=== PATIENT | female | born 1970 | race Caucasian/White ===

== ENCOUNTER 2017-02-21 03:27 | Emergency (ER) | payer MEDICAID ==
[~2017-02-21] VITALS: Ht 152.4 cm; Wt 116.1 kg
[~2017-02-21 03:27] MED LIST: ACETAMINOPHEN500 M3 PO; ANTACID PO; AUGMENTIN 875-1 EACH PO; BACTRIM DS 8001 TA1 PO; CEFTIN500 MG PO; CELEXA40 M1 PO; CITALOPRAM HYDR20 MG PO; CLARITIN 10MG T10 MG PO; DIVALPROEX SOD500 M2 PO; DUONEB 3 MG/3 ML3 ML IH; ESTRACE 2MG. TAB2 MG PO; HYDROCHLOROTH12.5 M1 PO; HYDROXYZINE 25M25 MG PO; IBUPROFEN600 MG PO; IMODIUM 2MG. CAP2 MG PO; KALETRA1 TAB PO; KLOR-CON M2020 MEQ PO; LAMICTAL100 MG PO; LAMIVUDINE300 MG PO; MECLIZINE25 MG PO; MILK OF MA400 MG/52 PO; MIRALAX17 GM/PACK PO; NORCO 325 MG-51 TAB PO; PREDNICOT20 MG PO; PRILOSEC OTC20 MG PO; PROMETHAZINE25 M1; RISPERDAL 0.50.5 MG NG; RISPERIDONE0.25 MG PO; ROBAFEN DM473 ML PO; ROBITUSSIN DM 105 ML PO; SIMVASTATIN20 MG PO; SPIRIVA18 MCG IH; STERAPRED DS10 MG PO; SYMBICORT1 AE1 IH; TIZANIDINE HCL 44 MG PO; TRAZODONE150 MG PO; TRIAMCINOLON 0.15 GM TP; TYLENOL325 MG PO; VENTOLIN H0.09 MG/AC IH; VITAMIN D50000 I1 PO; ZIDOVUDINE300 MG PO; ZITHROMAX Z PA250 MG PO; ZUN SPOT1% TP; [UNRECOGNIZED DRUG - OTHER] IM; [UNRECOGNIZED DRUG - OTHER] PO
[2017-02-21 03:50] LABS: HEMOGLOBIN 13.9 g/dL (12.2-16.2); LYMPH # 2.9 K/mm3 (0.7-4.5); LYMPH % 22.2 % (10-50.0)
[2017-02-21 03:53] LABS: URINE BILIRUBIN - DIPSTICK NEGATIVE (NEG); URINE BLOOD NEGATIVE (NEG)
--- NOTE | 2017-02-21 05:20 | Emergency Room Report ---
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 N Clinical Suspician of Infection? Y Mental Status: 1 - Regular (Normal Baseline) Sepsis Risk:Possible Sepsis Risk Have you (or family members/close friends) recently traveled outside the [place]? N If Yes, where/when: Have you had exposure to infectious disease within the past month? N TB? Other? Specify: Source patient, RN notes reviewed, EMS, correction records, old records Exam Limitations no limitations Comment acute onset of rt flank pain with no trauma or fever and no rash this am Cardiac Chest Pain Chest pain indicative of cardiac No Timing/Duration this evening Severity moderate ALLERGIES Coded Allergies: BANANAS (FOOD) (From BANANAS (FOOD/DRUG)) (Mild, 10/18/15) CHOCOLATE (FOOD) (From CHOCOLATE (FOOD/DRUG)) (Mild, UNKNOWN 10/18/15) banana (From BANANAS (FOOD/DRUG)) (Mild, 10/18/15) chocolate flavor (From CHOCOLATE (FOOD/DRUG)) (Mild, UNKNOWN 10/18/15) Home Medications Active Scripts Zidovudine 300 MG PO BID #30 TAB Prov: 07/12/16 Lamivudine 300 MG PO DAILY #15 TAB Prov: 07/12/16 Lopinavir/Ritonavir (Kaletra 200-50 MG Tablet) 4 TAB PO DAILY #60 TAB Prov: 07/12/16 Reported Medications Risperidone (Risperdal 0.5 Mg Tablet) 0.5 MG NG TID Citalopram Hydrobromide (Celexa) 40 MG PO DAILY DEXTROMETHORPHAN-GG (Guaifenesin Dm Syrup) 10 ML PO Q4HP Loperamide Hcl (Loperamide) 2 MG PO Q6HP PRN DIARRHEA Promethazine Hcl (Promethazine HCl) ALBUTEROL (Ventolin Hfa) 2 PUFFS IH Q6HP Hydrochlorothiazide (Hydrochlorothiazide 12.5MG) 25 MG PO DAILY Polyethylene Glycol 3350 (Miralax) 17 GM PO DAILY OMEPRAZOLE MAGNESIUM (Prilosec OTC) 20 MG PO BID Divalproex Sodium 500 MG PO BID #60 Simvastatin 20 MG PO QHS #30 Loratadine (Claritin 10MG) 10 MG PO DAILY #30 BUDESONIDE/FORMOTEROL FUMARATE (Symbicort 160-4.5 Mcg Inhaler) 2 PUFFS IH BID #10 TIZANIDINE HCL (Tizanidine Hcl 4 Mg Tablet) 4 MG PO TIDP PRN MUSCLES #15 TAB ERGOCALCIFEROL (VITAMIN D2) (Vitamin D2) 50,000 IUNITS PO WEEKLY #4 Hydroxyzine Pamoate (Hydroxyzine) 25 MG PO Q6HP PRN ANXIETY #30 Acetaminophen (Tylenol) 650 MG PO Q4HP PRN PAIN GUAIFENESIN/DEXTROMETHORPHAN (Robafen-Dm Syrup) 30 ML PO Q4HP PRN COUGH #473 History Medical History General CAD? No Angina: Yes [place]: No Hypertension? Yes Hyperlipidemia? Yes CHF? Yes DVT? No PE? No COPD? Yes Asthma? Yes Anemia? No GERD? No Gastric ulcers? No GI Bleed? No Hernia? Yes Thyroid Problems? No Hypothyroidism? No CVA? No Seizures? No Diabetes? No Renal Insuffiency? No End Stage Renal Disease? No UTI? Yes Stones? No BPH? No GB Disease: Yes Nephritic Syndrome? No Asplenia? No Hepatitis? No Sickle Cell Disease? No Arthritis? No Migraines? No Cataracts? No Glaucoma? No MRSA? No HIV? No TB? No Anxiety? No Depression? No Cancer? No More? 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 Respiratory denies cough, denies shortness of breath, denies wheezing Cardiovascular denies chest pain, denies syncope Gastrointestinal denies abdominal pain, denies diarrhea, denies vomiting Genitourinary see HPI. denies: dysuria, frequency, hesitancy, hematuria. Musculoskeletal denies back pain, denies joint pain, denies joint swelling, denies neck pain Skin denies rash Psychiatric/Neurological denies headache, denies seizure Physical Exam Vital Signs Vital Signs Date Time Temp Pulse Resp B/P Pulse O2 O2 Flow FiO2 Ox Delivery Rate 02/21 0527 98.8 87 20 139/75 97 02/21 0331 98.8 102 20 149/83 95 - WBC >12,000 or <4,000 or 10% bands? 2 or more SIRS Criteria Met? B/P:139/75 MAP:105 Creatinine >2.0? UA output<0.5ml/kg/hr for 2 hrs? Platelet count >100,000? Lactate >2.0mmol/1? INR >1.2 or PTT > than 60 sec? Evidence of Organ Dysfunction? Provider documented clinical suspician of infection? Y Sepsis Criteria Count: 2 Sepsis Risk: Possible Sepsis Risk General Appearance no apparent distress Eye Exam - bilateral eye PERRL, bilateral eye EOMI Ear, Nose, Throat normal ENT inspection Neck supple Respiratory Status No: respiratory distress. Lung Sounds bilateral: lungs clear. Cardiovascular regular rate/rhythm, systolic murmur Peripheral Pulses Pulses normal Yes Gastrointestinal soft, no organomegaly, no pulsatile mass, no guarding, no rebound Back no CVA tenderness, no vertebral tenderness, bowel/bladder continent, gait normal, decreased range of motion, strt leg raising(L)-NML, strt leg raising(R)- NML Extremities normal inspection, no calf tenderness Strength 4 Upper Ext (L), 4 Upper Ext (R), 4 Lower Ext (L), 4 Lower Ext (R) Neurologic alert, ultrasound technologist II-XII nml as tested, no motor/sensory deficits Reflexes Reflexes normal No Mental status normal mood/affect Skin intact, no rash cons.w/shingles Medical Decision Making LABS/Meds/Orders Pt receiving controlled substance in ED? No Results/Orders Laboratory Tests 02/21/17 0340: Urine Color YELLOW, Urine Appearance CLEAR, Urine pH 7.0, Ur Specific [place] 1.020, Urine Protein TRACE H, Urine Ketones NEGATIVE, Urine Blood NEGATIVE, Urine Nitrate NEGATIVE, Urine Bilirubin NEGATIVE, Urine Urobilinogen 0.2, Ur Leukocyte Esterase NEGATIVE, Ur Squamous Epith Cells 10-20, Urine Glucose NEGATIVE 02/21/17 0320: Sodium 143, Potassium 3.5, Chloride 105, Carbon Dioxide 33 H, BUN 14, Creatinine 0.7, Estimated Creat Clear 184, Estimated GFR (MDRD) 90, Glucose 147 H, Calcium 8.1 L, Total Bilirubin 0.1 L, AST 8 L, ALT 27, Alkaline Phosphatase 85, Total Protein 7.4, Albumin 3.5, Globulin 3.9 H, Albumin/ Globulin Ratio 0.9 L, WBC 12.9 H, RBC 4.99, Hgb 13.9, Hct 44.9, MCV 89.9, RDW 13.8, Plt Count 355, MPV 7.8, Gran % 72.8, Gran # 9.4 H, Lymphocytes % 22.2, Monocytes % 4.7, Eosinophils % 0.1, Basophils % 0.2, Lymphocytes # 2.9, Monocytes # 0.6, Eosinophils # 0.0, Basophils # 0.0, PUBS MCHC 31.1 L, MCH 27.9 Current Medication Orders Sig/Alexis Start time Last Medication Dose Route Stop Time Status Admin Ketorolac 30 MG ONCE ONE 02/21 0545 AC Tromethamine IV 02/21 05 Sodium Chloride 10 ML PRN PRN 02/21 345 AC IV 02/22 342 Orders Procedure Date/time Status DIET-NOTHING BY MOUTH 02/[address] ABD & PELVIS W/O CONTRAST 02/[address] ABD/PELVIS REQ 02/21 0400 Active IV SALINE LOCK 02/21 343 Active URINALYSIS/COMPLETE 02/21 343 Complete CBC WITH AUTO DIFF 02/21 343 Complete CHEM 12 PROFILE 02/21 343 Complete XRAY/CT/US XRAY/CT/US CT abdomen, pelvis CT interpretation by discussed w/radiologist Time results known: 0546 CT Results abnormal (see report) Departure Departure Time of Disposition 0540 Disposition DC Home or Self Care(routine) Clinical Impression Primary Impression: Flank pain, acute Condition STABLE Referrals Hira MIX,Erasmo Terry (Family) Patient Instructions DI for Flank Pain Additional Instructions fluids and resume meds Discharge Counseling Counseled pt/family regarding diagnosis, test results, medications/RX, follow up needs ED Critical Care Critical Care No at 0535
[2017-02-21 05:50] VITALS: BP 139/75
--- NOTE | 2017-02-21 16:32 | RADIOLOGY REPORT PS360 ---
CT ABD PELVIS W/O CONTRAST CLINICAL INDICATION: Right flank pain, right upper quadrant pain ABD PAIN ORDERING PHYSICIAN: Viviana Iniguez MD PATIENT AGE: 46 years COMPARISON: 08/10/2015 TECHNIQUE: Axial images obtained with sagittal and coronal reformats. PROCEDURE: Oral Contrast: None IV Contrast: None . FINDINGS: No acute findings in the lower chest. Prior cholecystectomy. No biliary dilatation. The liver, spleen, adrenal glands, and pancreas has an unremarkable appearance. No renal calculi or hydronephrosis. No ureteral calculi. Unremarkable appearing urinary bladder. No evidence of diverticulitis or appendicitis. Prior ventral abdominal hernia repair. Mild thickening of proximal small bowel. Prior hysterectomy. No acute bony findings. IMPRESSION: 1. Possible enteritis. 2. No obstructing renal or ureteral calculus
--- OUTSIDE RECORDS SUMMARY | 2017-02-22 02:51 | External Medical Summary Rpt | CCD ---
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 06 07 30 [address] 72 -1 -0 .0 00 D ti OC 90 3- 7- 00 14 CA ve HL 18 20 20 37 RE OR 31 17 17 99 OT 7 44 PH HI AR AZ MA ID CY E 25 MG TA B SI 68 06 07 30 30 00 ME Ac MV 18 -1 -0 .0 00 D ti 00 3- 7- 00 14 CA ve TA 47 20 20 37 RE TI 90 17 17 99 N 2 45 PH 20 AR MA MG CY TA BL ET SY 00 06 07 10 30 00 ME Ac MB 18 -1 -0 .1 00 D ti IC 60 3- 7- 99 14 CA ve OR 37 20 20 37 RE T 02 17 17 99 16 0 46 PH 0- AR 4. MA 5 CY MC G IN SKAGGS LE R AL 00 06 06 18 7 00 ME Ac BU 37 -0 -3 0. 00 D ti TE 88 1- 0- 00 14 CA ve RO 27 20 20 0 31 RE L 09 17 17 11 DIAZ 1 95 PH L AR 2. MA 5 CY MG /3 ML SO LN CE 00 06 06 30 30 00 ME Ac TI 37 -0 -3 .0 00 D ti RI 83 6- 0- 00 14 CA ve ZI 63 20 20 33 RE NE 70 17 17 19 1 90 PH HC AR L MA 10 CY MG TA BL ET LO 00 06 06 42 14 00 ME Ac RA 60 -0 -3 .0 00 D ti ZE 34 5- 0- 00 14 CA ve PA 24 20 20 31 RE M 73 17 17 95 1 2 74 PH MG AR MA TA CY BL ET 51 05 06 4. 28 00 ME Ac T 99 -2 -2 00 00 D ti D2 10 7- 3- 0 14 CA ve 60 20 20 27 RE 1. 40 17 17 01 25 1 09 PH AR MG MA CY (5 0, 00 0 UN IT ) MA 00 05 06 30 5 00 ME Ac PA 90 -2 -2 .0 00 D ti P 41 7- 3- 00 13 CA ve 32 98 20 20 66 RE 5 26 17 17 89 MG 1 25 PH AR TA MA BL CY ET BU 10 06 06 30 30 00 ME Ac AZ 37 -0 -2 .0 00 D ti OP 00 1- 3- 00 14 CA ve IO 10 20 20 29 RE N 25 17 17 16 HC 0 05 PH L AR XL MA CY 30 0 MG TA BL ET TI 29 05 06 90 30 00 ME Ac ZA 30 -1 -1 .0 00 D ti NI 00 9- 6- 00 14 CA ve DI 16 20 20 21 RE NE 91 17 17 75 5 51 PH HC AR L MA 4 CY MG TA BL ET RI 00 05 06 60 30 00 ME Ac SP 37 -2 -1 .0 00 D ti ER 83 2- 6- 00 14 CA ve ID 51 20 20 22 RE ON 49 17 17 42 E 1 12 PH 4 AR MG MA CY TA BL ET DIAZ 65 05 06 20 10 00 ME Ac LF 86 -2 -1 .0 00 D ti AM 20 2- 6- 00 14 CA ve ET 42 20 20 23 RE HO 00 17 17 97 XA 5 61 PH ZO AR LE MA -T CY MP DS TA BL ET CE 68 05 06 30 10 00 ME Ac PH 18 -2 -1 .0 00 D ti AL 00 2- 6- 00 14 CA ve EX 12 20 20 23 RE IN 20 17 17 97 2 60 PH 50 AR 0 MA MG CY CA PS UL E LO 00 05 06 42 14 00 ME Ac RA 60 -2 -1 .0 00 D ti ZE 34 3- 6- 00 14 CA ve PA 24 20 20 23 RE M 73 17 17 09 1 2 06 PH MG AR MA TA CY BL ET SI 68 05 06 30 30 00 ME Ac MV 18 -1 -0 .0 00 D ti 00 14 CA ve TA 47 20 20 19 RE TI 90 17 17 14 N 2 40 PH 20 AR MA MG CY TA BL ET SY 00 05 06 10 30 00 ME Ac MB 18 -1 -0 .1 00 D ti IC 60 5 99 14 CA ve OR 37 20 20 19 RE T 02 17 17 14 16 0 41 PH 0- AR 4. MA 5 CY MC G IN SKAGGS LE R HY 16 05 06 30 [address] 72 -1 -0 .0 00 D ti OC 90 5- 00 14 CA ve HL 18 20 20 19 RE OR 31 17 17 14 OT 7 39 PH HI AR AZ MA ID CY E 25 MG TA B CI 65 05 06 30 30 00 ME Ac TA 86 -1 -0 .0 00 D ti LO 20 14 CA ve AZ 00 20 20 19 RE AM 70 17 17 14 5 38 PH HB AR R MA 40 CY MG TA BL ET RA 68 05 06 60 30 00 ME Ac NI 46 -1 -0 .0 00 D ti TI 20 6- 14 CA ve DI 24 20 20 19 RE NE 80 17 17 57 5 97 PH 15 AR 0 MA MG CY TA BL ET DI 29 05 06 60 30 00 ME Ac VA 30 -1 -0 .0 00 D ti LP 00 14 CA ve RO 14 20 20 20 RE EX 00 17 17 98 1 48 PH SO AR D MA DR CY 50 0 MG TA B CE 00 05 06 30 30 00 ME Ac TI 37 -0 -0 .0 00 D ti RI 83 8- 2- 00 14 CA ve ZI 63 20 20 15 RE NE 70 17 17 68 1 78 PH HC AR L MA 10 CY MG TA BL ET LO 00 05 06 42 14 00 ME Ac RA 60 -1 -0 .0 00 D ti ZE 34 0- 2- 00 14 CA ve PA 24 20 20 18 RE M 73 17 17 05 1 2 30 PH MG AR MA TA CY BL ET LO 00 05 05 30 10 00 ME Ac RA 60 -0 -2 .0 00 D ti ZE 34 2- 6- 00 14 CA ve PA 24 20 20 14 RE M 73 17 17 07 1 2 81 PH MG AR MA TA CY BL ET BU 10 05 05 30 30 00 ME Ac AZ 37 -0 -2 .0 00 D ti OP 00 3- 6- 00 14 CA ve IO 10 20 20 13 RE N 25 17 17 31 HC 0 61 PH L AR XL MA CY 30 0 MG TA BL ET 51 05 05 4. 28 00 ME Ac T 99 -0 -2 00 00 D ti D2 10 4- 6- 0 14 CA ve 60 20 20 13 RE 1. 40 17 17 95 25 1 49 PH AR MG MA CY (5 0, 00 0 UN IT ) RI 00 04 05 60 30 00 ME Ac SP 37 -2 -1 .0 00 D ti ER 83 4- 9- 00 14 CA ve ID 51 20 20 09 RE ON 49 17 17 88 E 1 84 PH 4 AR MG MA CY TA BL ET TI 29 04 05 90 30 00 ME Ac ZA 30 -2 -1 .0 00 D ti NI 00 1- 9- 00 14 CA ve DI 16 20 20 07 RE NE 91 17 17 81 5 27 PH HC AR L MA 4 CY MG TA BL ET HY 16 04 05 30 [address] 72 -1 -1 .0 00 D ti OC 90 7- 2- 00 14 CA ve HL 18 20 20 06 RE OR 31 17 17 26 OT 7 93 PH HI AR AZ MA ID CY E 25 MG TA B SY 00 04 05 10 30 00 ME Ac MB 18 -1 -1 .1 00 D ti IC 60 7- 2- 99 14 CA ve OR 37 20 20 06 RE T 02 17 17 26 16 0 83 PH 0- AR 4. MA 5 CY MC G IN SKAGGS LE R SI 68 04 05 30 30 00 ME Ac MV 18 -1 -1 .0 00 D ti 00 7- 2- 00 14 CA ve TA 47 20 20 06 RE TI 90 17 17 26 N 2 91 PH 20 AR MA MG CY TA BL ET CE 00 04 05 24 24 00 ME Ac TI 37 -1 -1 .0 00 D ti RI 83 7- 2- 00 14 CA ve ZI 63 20 20 06 RE NE 70 17 17 26 1 76 PH HC AR L MA 10 CY MG TA BL ET CI 65 04 05 30 30 00 ME Ac TA 86 -1 -1 .0 00 D ti LO 20 7- 2- 00 14 CA ve AZ 00 20 20 06 RE AM 70 17 17 26 5 89 PH HB AR R MA 40 CY MG TA BL ET LO 00 04 05 42 14 00 ME Ac RA 60 -1 -1 .0 00 D ti ZE 34 7- 2- 00 14 CA ve PA 24 20 20 05 RE M 73 17 17 35 1 2 48 PH MG AR MA TA CY BL ET LA 65 03 05 30 15 00 ME Ac NY 86 -0 -1 .0 00 D ti VU 20 6- 2- 00 13 CA ve DI 55 20 20 85 RE NE 26 17 17 05 0 88 PH 15 AR 0 MA MG CY TA BL ET RA 68 04 05 60 30 00 ME Ac NI 46 -1 -1 .0 00 D ti TI 20 7- 2- 00 14 CA ve DI 24 20 20 05 RE NE 80 17 17 17 5 46 PH 15 AR 0 MA MG CY TA BL ET DI 29 04 05 60 30 00 ME Ac VA 30 -1 -1 .0 00 D ti LP 00 9- 2- 00 14 CA ve RO 14 20 20 06 RE EX 00 17 17 35 1 72 PH SO AR D MA DR CY 50 0 MG TA B KA 00 03 05 58 15 00 ME Ac LE 07 -0 -0 .0 00 D ti TR 46 6- 5- 00 13 CA ve A 79 20 20 85 RE 20 92 17 17 05 0- 2 89 PH 50 AR MA MG CY TA BL ET 51 04 05 4. 28 00 ME Ac T 99 -0 -0 00 00 D ti D2 10 7- 5- 0 14 CA ve 60 20 20 01 RE 1. 40 17 17 02 25 1 68 PH AR MG MA CY (5 0, 00 0 UN IT ) TR 50 04 05 30 30 00 ME Ac AZ 11 -1 -0 .0 00 D ti OD 10 1- 5- 00 14 CA ve ON 43 20 20 02 RE E 40 17 17 06 10 3 47 PH 0 AR MG MA CY TA BL ET RI 00 04 05 90 30 00 ME Ac SP 37 -1 -0 .0 00 D ti ER 83 2- 5- 00 14 CA ve ID 51 20 20 02 RE ON 29 17 17 98 E 1 20 PH 2 AR MG MA CY TA BL ET BU 10 04 04 30 30 00 ME Ac AZ 37 -0 -2 .0 00 D ti OP 00 4- 8- 00 13 CA ve IO 10 20 20 98 RE N 25 17 17 64 HC 0 92 PH L AR XL MA CY 30 0 MG TA BL ET LO 00 04 04 42 14 00 ME Ac RA 60 -0 -2 .0 00 D ti ZE 34 3- 8- 00 13 CA ve PA 24 20 20 98 RE M 73 17 17 39 1 2 83 PH MG AR MA TA CY BL ET DI 29 03 04 60 30 00 ME Ac VA 30 -2 -2 .0 00 D ti LP 00 3- - 00 13 CA ve RO 14 20 20 94 RE EX 00 17 17 26 1 06 PH SO AR D MA DR CY 50 0 MG TA B SI 68 03 04 30 30 00 ME Ac MV 18 -2 -2 .0 00 D ti 00 3- 00 13 CA ve TA 47 20 20 94 RE TI 90 17 17 26 N 2 09 PH 20 AR MA MG CY TA BL ET HY 16 03 04 30 [address] 72 -2 -2 .0 00 D ti OC 90 3- 1- 00 13 CA ve HL 18 20 20 94 RE OR 31 17 17 26 OT 7 12 PH HI AR AZ MA ID CY E 25 MG TA B TI 29 03 04 90 30 00 ME Ac ZA 30 -2 -2 .0 00 D ti NI 00 4- 1- 00 13 CA ve DI 16 20 20 93 RE NE 91 17 17 91 5 89 PH HC AR L MA 4 CY MG TA BL ET SY 00 03 04 10 30 00 ME Ac MB 18 -2 -2 .1 00 D ti IC 60 4- 1- 99 13 CA ve OR 37 20 20 93 RE T 02 17 17 91 16 0 90 PH 0- AR 4. MA 5 CY MC G IN SKAGGS LE R CI 65 03 04 30 30 00 ME Ac TA 86 -2 -2 .0 00 D ti LO 20 3- 1- 00 13 CA ve AZ 00 20 20 94 RE AM 70 17 17 25 5 83 PH HB AR R MA 40 CY MG TA BL ET CE 00 03 04 30 30 00 ME Ac TI 37 -2 -2 .0 00 D ti RI 83 3- 1- 00 13 CA ve ZI 63 20 20 94 RE NE 70 17 17 26 1 01 PH HC AR L MA 10 CY MG TA BL ET LO 00 03 04 42 14 00 ME Ac RA 60 -2 -1 .0 00 D ti ZE 34 0- 4- 00 13 CA ve PA 24 20 20 91 RE M 73 17 17 48 1 2 56 PH MG AR MA TA CY BL ET RI 00 03 04 90 30 00 ME Ac SP 37 -1 -1 .0 00 D ti ER 83 6- 4- 00 13 CA ve ID 51 20 20 90 RE ON 29 17 17 99 E 1 59 PH 2 AR MG MA CY TA BL ET RA 68 03 04 60 30 00 ME Ac NI 46 -2 -1 .0 00 D ti TI 20 0- 4- 00 13 CA ve DI 24 20 20 92 RE NE 80 17 17 36 5 12 PH 15 AR 0 MA MG CY TA BL ET 64 03 04 4. 28 00 ME Ac T 38 -1 -0 00 00 D ti D2 00 3- 7- 0 13 CA ve 73 20 20 88 RE 1. 70 17 17 81 25 6 25 PH AR MG MA CY (5 0, 00 0 UN IT ) RI 00 03 04 45 30 00 ME Ac SP 37 -1 -0 .0 00 D ti ER 83 3- 7- 00 13 CA ve ID 51 20 20 87 RE ON 39 17 17 74 E 1 36 PH 3 AR MG MA CY TA BL ET TR 50 03 04 30 30 00 ME Ac AZ 11 -1 -0 .0 00 D ti OD 10 3- 7- 00 13 CA ve ON 43 20 20 87 RE E 40 17 17 74 10 3 35 PH 0 AR MG MA CY TA BL ET BU 10 03 03 30 30 00 ME Ac AZ 37 -0 -3 .0 00 D ti OP 00 6- 1- 00 13 CA ve IO 10 20 20 84 RE N 25 17 17 31 HC 0 06 PH L AR XL MA CY 30 0 MG TA BL ET LO 00 03 03 42 14 00 ME Ac RA 60 -0 -3 .0 00 D ti ZE 34 6- 1- 00 13 CA ve PA 24 20 20 84 RE M 73 17 17 49 1 2 77 PH MG AR MA TA CY BL ET DI 29 02 03 60 30 00 ME Ac VA 30 -2 -2 .0 00 D ti LP 00 7- 4- 00 13 CA ve RO 14 20 20 81 RE EX 00 17 17 35 1 31 PH SO AR D MA DR CY 50 0 MG TA B SI 68 02 03 30 30 00 ME Ac MV 18 -2 -2 .0 00 D ti 00 7- 4- 00 13 CA ve TA 47 20 20 81 RE TI 90 17 17 35 N 2 29 PH 20 AR MA MG CY TA BL ET HY 16 02 03 30 [address] 72 -2 -2 .0 00 D ti OC 90 7- 4- 00 13 CA ve HL 18 20 20 81 RE OR 31 17 17 35 OT 7 27 PH HI AR AZ MA ID CY E 25 MG TA B CI 65 02 03 30 30 00 ME Ac TA 86 -2 -2 .0 00 D ti LO 20 7- 4- 00 13 CA ve AZ 00 20 20 81 RE AM 70 17 17 35 5 34 PH HB AR R MA 40 CY MG TA BL ET CE 00 02 03 30 30 00 ME Ac TI 37 -2 -2 .0 00 D ti RI 83 7- 4- 00 13 CA ve ZI 63 20 20 81 RE NE 70 17 17 35 1 37 PH HC AR L MA 10 CY MG TA BL ET RA 68 02 03 60 30 00 ME Ac NI 46 -2 -1 .0 00 D ti TI 20 2- 7- 00 13 CA ve DI 24 20 20 66 RE NE 80 17 17 89 5 68 PH 15 AR 0 MA MG CY TA BL ET TI 29 02 03 90 30 00 ME Ac ZA 30 -2 -1 .0 00 D ti NI 00 3- 7- 00 13 CA ve DI 16 20 20 66 RE NE 91 17 17 89 5 33 PH HC AR L MA 4 CY MG TA BL ET SY 00 02 03 10 30 00 ME Ac MB 18 -2 -1 .1 00 D ti IC 60 3- 7- 99 13 CA ve OR 37 20 20 66 RE T 02 17 17 89 16 0 62 PH 0- AR 4. MA 5 CY MC G IN SKAGGS LE R LO 00 02 03 42 14 00 ME Ac RA 60 -2 -1 .0 00 D ti ZE 34 0- 7- 00 13 CA ve PA 24 20 20 77 RE M 73 17 17 27 1 2 01 PH MG AR MA TA CY BL ET LO 00 02 03 30 4 00 ME Ac PE 09 -1 -1 .0 00 D ti RA 30 3- 0- 00 13 CA ve NY 31 20 20 66 RE DE 10 17 17 89 2 1 27 PH AR MG MA CY CA PS UL E TR 50 02 03 30 30 00 ME Ac AZ 11 -1 -1 .0 00 D ti OD 10 4- 0- 00 13 CA ve ON 43 20 20 75 RE E 40 17 17 33 10 3 91 PH 0 AR MG MA CY TA BL ET RI 00 02 03 45 30 00 ME Ac SP 37 -1 -1 .0 00 D ti ER 83 4- 0- 00 13 CA ve ID 51 20 20 75 RE ON 39 17 17 33 E 1 93 PH 3 AR MG MA CY TA BL ET 64 02 03 4. 28 00 ME Ac T 38 -1 -1 00 00 D ti D2 00 6- 0- 0 13 CA ve 73 20 20 66 RE 1. 70 17 17 89 25 6 67 PH AR MG MA CY (5 0, 00 0 UN IT ) LO 00 02 03 42 14 00 ME Ac RA 60 -0 -0 .0 00 D ti ZE 34 7- 3- 00 13 CA ve PA 24 20 20 66 RE M 73 17 17 89 1 2 50 PH MG AR MA TA CY BL ET BU 10 02 03 30 30 00 ME Ac AZ 37 -0 -0 .0 00 D ti OP 00 6- 3- 00 13 CA ve IO 10 20 20 66 RE N 25 17 17 89 HC 0 38 PH L AR XL MA CY 30 0 MG TA BL ET RI 00 01 03 18 6 00 ME Ac SP 37 -0 -0 .0 00 D ti ER 83 2- 3- 00 13 CA ve ID 50 20 20 52 RE ON 59 17 17 99 E 1 02 PH 0. AR 5 MA MG CY TA LL BL C ET SI 68 02 02 30 30 00 ME Ac MV 18 -0 -2 .0 00 D ti 00 1- 4 13 CA ve TA 47 20 20 66 RE TI 90 17 17 89 N 2 56 PH 20 AR MA MG CY TA BL ET DI 29 02 02 60 30 00 ME Ac VA 30 -0 -2 .0 00 D ti LP 00 1- 4- 00 13 CA ve RO 14 20 20 66 RE EX 00 17 17 89 1 48 PH SO AR D MA DR CY 50 0 MG TA B CI 65 02 02 30 30 00 ME Ac TA 86 -0 -2 .0 00 D ti LO 20 1- 4- 00 13 CA ve AZ 00 20 20 66 RE AM 70 17 17 89 5 46 PH HB AR R MA 40 CY MG TA BL ET HY 16 02 02 30 [address] 72 -0 -2 .0 00 D ti OC 90 1- 4- 00 13 CA ve HL 18 20 20 66 RE OR 31 17 17 89 OT 7 49 PH HI AR AZ MA ID CY E 25 MG TA B CE 00 02 02 30 30 00 ME Ac TI 37 -0 -2 .0 00 D ti RI 83 1- 4- 00 13 CA ve ZI 63 20 20 66 RE NE 70 17 17 89 1 39 PH HC AR L MA 10 CY MG TA BL ET 64 01 02 4. 28 00 ME Ac T 38 -2 -1 00 00 D ti D2 00 0- 7- 0 13 CA ve 73 20 20 62 RE 1. 70 17 17 62 25 6 11 PH AR MG MA CY (5 0, LL 00 C 0 UN IT ) AL 00 01 02 18 14 00 ME Ac BU 37 -2 -1 0. 00 D ti TE 88 0- 7- 00 13 CA ve RO 27 20 20 0 63 RE L 09 17 17 50 DIAZ 1 49 PH L AR 2. MA 5 CY MG /3 LL C ML SO LN RA 68 01 02 60 30 00 ME Ac NI 46 -2 -1 .0 00 D ti TI 20 4- 7- 00 13 CA ve DI 24 20 20 63 RE NE 80 17 17 91 5 24 PH 15 AR 0 MA MG CY TA LL BL C ET LO 00 01 02 42 14 00 ME Ac RA 60 -2 -1 .0 00 D ti ZE 34 5- 7- 00 13 CA ve PA 24 20 20 64 RE M 73 17 17 51 1 2 72 PH MG AR MA TA CY BL ET LL C OM 00 12 02 30 15 00 ME Ac EP 78 -0 -1 .0 00 D ti RA 12 3- 0- 00 13 CA ve ZO 79 20 20 39 RE LE 01 16 17 [address] AR MA 20 CY MG LL C CA PS UL E RI 00 01 02 90 30 00 ME Ac SP 37 -1 -1 .0 00 D ti ER 83 2- 0- 00 13 CA ve ID 51 20 20 59 RE ON 19 17 17 38 E 1 98 PH 1 AR MG MA CY TA BL LL ET C CE 68 01 02 40 10 00 ME Ac PH 18 -1 -1 .0 00 D ti AL 00 4- 0- 00 13 CA ve EX 12 20 20 60 RE IN 20 17 17 31 2 71 PH 50 AR 0 MA MG CY CA LL PS C UL E LO 00 01 02 42 14 00 ME Ac RA 60 -1 -0 .0 00 D ti ZE 34 1- 3- 00 13 CA ve PA 24 20 20 57 RE M 73 17 17 65 1 2 39 PH MG AR MA TA CY BL ET LL C RO 00 01 02 47 7 00 ME Ac BA 90 -0 -0 3. 00 D ti FE 40 6- 3- 00 13 CA ve N 06 20 20 0 56 RE 10 11 17 17 33 0 6 85 PH MG AR /5 MA CY ML LL SY C RU P MA 00 01 02 30 5 00 ME Ac PA 90 -0 -0 .0 00 D ti P 41 9- 3- 00 13 CA ve 32 98 20 20 57 RE 5 26 17 17 40 MG 1 41 PH AR TA MA BL CY ET LL C BU 10 01 02 30 30 00 ME Ac AZ 37 -1 -0 .0 00 D ti OP 00 0- 3- 00 13 CA ve IO 10 20 20 57 RE N 25 17 17 17 HC 0 80 PH L AR XL MA CY 30 0 LL MG C TA BL ET HY 16 10 01 [address] 71 -0 -2 .0 00 D ti OX 40 7- 7- 00 13 CA ve YZ 08 20 20 09 RE IN 31 16 17 51 E 0 61 PH HC AR L MA 50 CY MG LL C TA BL ET BU 10 12 01 11 11 00 ME Ac AZ 37 -0 -2 .0 00 D ti OP 00 1 7 13 CA ve IO 10 20 20 37 RE N 15 16 17 90 HC 0 43 PH L AR XL MA CY 15 0 LL MG C TA BL ET HY 16 01 30 [address] 72 -0 -2 .0 00 D ti OC 90 2- 7- 00 13 CA ve HL 18 20 20 52 RE OR 31 17 17 98 OT 7 98 PH HI AR AZ MA ID CY E 25 LL C MG TA B DI 29 01 01 60 30 00 ME Ac VA 30 -0 -2 .0 00 D ti LP 00 2- 7- 00 13 CA ve RO 14 20 20 52 RE EX 00 17 17 98 1 97 PH SO AR D MA DR CY 50 LL 0 C MG TA B CE 00 01 30 30 00 ME Ac TI 37 -0 -2 .0 00 D ti RI 83 2- 7- 00 13 CA ve ZI 63 20 20 52 RE NE 70 17 17 99 1 00 PH HC AR L MA 10 CY MG LL C TA BL ET SI 68 01 30 30 00 ME Ac MV 18 -0 -2 .0 00 D ti 00 2- 7- 00 13 CA ve TA 47 20 20 52 RE TI 90 17 17 98 N 2 99 PH 20 AR MA MG CY TA LL BL C ET TR 50 01 30 30 00 ME Ac AZ 11 -0 -2 .0 00 D ti OD 10 2- 7- 00 13 CA ve ON 43 20 20 52 RE E 30 17 17 99 50 1 04 PH AR MG MA CY TA BL LL ET C CI 65 01 01 30 30 00 ME Ac TA 86 -0 -2 .0 00 D ti LO 20 2- 7- 00 13 CA ve AZ 00 20 20 52 RE AM 70 17 17 99 5 01 PH HB AR R MA 40 CY MG LL C TA BL ET SY 00 01 01 10 30 00 ME Ac MB 18 -0 -2 .1 00 D ti IC 60 2- 7- 99 13 CA ve OR 37 20 20 52 RE T 02 17 17 99 16 0 03 PH 0- AR 4. MA 5 CY MC G LL IN C SKAGGS LE R RA 64 12 01 30 15 00 ME Ac NI 38 -2 -2 .0 00 D ti TI 00 7- 0- 00 13 CA ve DI 80 20 20 50 RE NE 30 16 17 97 7 95 PH 15 AR 0 MA MG CY TA LL BL C ET 64 12 01 4. 28 00 ME Ac T 38 -2 -2 00 00 D ti D2 00 3- 0- 0 13 CA ve 73 20 20 48 RE 1. 70 16 17 83 25 6 31 PH AR MG MA CY (5 0, LL 00 C 0 UN IT ) LO 00 12 01 42 14 00 ME Ac RA 60 -2 -2 .0 00 D ti ZE 34 8- 0- 00 13 CA ve PA 24 20 20 50 RE M 73 16 17 65 1 2 79 PH MG AR MA TA CY BL ET LL C AZ 68 12 01 30 7 00 ME Ac OM 38 -1 -1 .0 00 D ti ET 20 7- 3- 00 13 CA ve SKAGGS 04 20 20 46 RE ZI 10 16 17 58 NE 1 39 PH AR 25 MA CY MG LL TA C BL ET BU 10 12 01 30 30 00 ME Ac AZ 37 -1 -0 .0 00 D ti OP 00 3- 9- 00 13 CA ve IO 10 20 20 44 RE N 25 16 17 88 HC 0 99 PH L AR XL MA CY 30 0 LL MG C TA BL ET LO 00 12 01 42 14 00 ME Ac RA 60 -1 -0 .0 00 D ti ZE 34 4- 9- 00 13 CA ve PA 24 20 20 44 RE M 73 16 17 30 1 2 64 PH MG AR MA TA CY BL ET LL C RI 50 11 01 2 20 0 TO 65 PO Ac SP 45 -0 -1 .0 TA 97 E ti ER 80 9- 9- [address] ve DA 30 20 20 CA 8 AC L 81 11 12 RE Y CO 1 L NS PH TA AR MA 50 CY # MG 1 SY R PO 51 12 01 3 25 0 TO 65 PO Ac LY 99 -0 -0 50 TA 98 CZ ti ET 10 5- 5- .0 L 56 AT ve HY 45 20 20 00 CA 6 EK LE 75 11 12 RE NE 8 WI PH LL GL AR IA YC MA M OL CY R # 33 1 50 PO WD ES 00 12 01 5 60 0 TO 65 PO Ac TR 59 -0 -0 0. TA 98 CZ ti AD 10 5- 5- 00 L 56 AT ve IO 48 20 20 0 CA 7 EK L 70 11 12 RE 1 5 WI MG PH LL AR IA TA MA M BL CY R ET # 1 TR 45 12 01 5 15 0 TO 65 PO Ac IA 80 -0 -0 0. TA 98 CZ ti MC 20 5- 5- 00 L 57 AT ve IN 06 20 20 0 CA 3 EK OL 53 11 12 RE ON 5 WI E PH LL 0. AR IA 5% MA M CY R CR # EA 1 M NE 00 12 01 11 30 0 TO 65 PO Ac XI 18 -0 -0 0. TA 98 CZ ti UM 65 5- 5- 00 L 56 AT ve 04 20 20 [address] 08 11 12 RE 2 WI 40 PH LL AR IA MG MA M CY R CA # PS 1 UL E VE 00 12 01 5 18 0 TO 65 PO Ac NT 17 -0 -0 0. TA 98 CZ ti OL 30 5- 5- 00 L 56 AT ve IN 68 20 20 0 CA 8 EK 22 11 12 RE HF 0 WI A PH LL 90 AR IA MA M MC CY R G # IN 1 SKAGGS LE R PO 00 12 01 5 60 0 TO 65 PO Ac TA 78 -0 -0 0. TA 98 CZ ti SS 15 5- 5- 00 L 57 AT ve IU 72 20 20 0 CA 6 EK M 01 11 12 RE CL 0 WI PH LL ER AR IA MA M 20 CY R # ME 1 Q TA BL ET HY 00 12 01 5 30 0 TO [address] 22 -0 -0 0. TA 98 CZ ti OC 82 5- 5- 00 L 57 AT ve HL 82 20 20 0 CA 7 EK OR 01 11 12 RE OT 1 WI HI PH LL AZ AR IA ID MA M E CY R 12 # .5 1 MG TB TO 68 12 01 5 60 0 TO 65 PO Ac PI 46 -0 -0 0. TA 98 CZ ti RA 20 5- 5- 00 L 58 AT ve MA 10 20 20 0 CA 1 EK TE 81 11 12 RE 0 WI 25 PH LL AR IA MG MA M CY R TA # BL 1 ET TR 53 11 01 1 30 0 TO 65 PO Ac AZ 48 -0 -0 0. TA 97 E ti OD 90 9- 5- [address] ve ON 51 20 20 0 CA 0 AC E 70 11 12 RE Y 15 1 L 0 PH MG AR MA TA CY BL # ET 1 AZ 00 12 12 0 48 0 RI 91 NO Ac ED 60 -2 -3 0. TE 47 RF ti NI 35 9- 0- 00 67 LE ve SO 33 20 20 0 AI ET NE 83 11 11 D R 1 PH 10 AR HE MA NR MG CY Y TA 03 B 93 DO 8 SE # 03 PA 93 CK CE 67 12 12 0 20 0 RI 91 NO Ac FU 87 -2 -3 0. TE 47 RF ti RO 70 9- 0- 00 70 LE ve XI 21 20 20 0 AI ET ME 62 11 11 D R 0 PH AX AR HE ET MA NR IL CY Y 50 03 0 93 MG 8 # TA 03 B 93 NI 00 12 12 0 28 28 TO 66 NO Ac CO 06 -2 -2 .0 TA 02 RF ti TI 75 9- 9- 00 L 07 LE ve NE 12 20 20 CA 4 ET 61 11 11 RE R 21 4 PH HE MG AR NR /2 MA Y 4H CY R # PA 1 TC H IP 00 12 12 0 36 30 YO 24 NO Ac RA 48 -2 -2 0. UR 68 RF ti T- 70 9- 9- 00 6 LE ve AL 20 20 20 0 PH ET BU 16 11 11 AR R T 0 MA 0. CY HE 5- NR 3( Y 2. 5) MG /3 ML LA 68 11 12 1 15 30 TO 65 PO Ac MO 38 -0 -2 .0 TA 97 E ti TR 20 9- 0- [address] ve IG 00 20 20 CA 5 AC IN 81 11 11 RE Y E 0 L 10 PH 0 AR MG MA CY TA # BL 1 ET RI 50 11 12 2 2. 28 TO 65 PO Ac SP 45 -0 -1 00 TA 97 E ti ER 80 9- 9- [address] ve DA 30 20 20 CA 8 AC L 81 11 11 RE Y CO 1 L NS PH TA AR MA 50 CY # MG 1 SY R SP 00 12 12 5 30 30 TO 65 PO Ac IR 59 -0 -1 .0 TA 98 CZ ti IV 70 5- 6- 00 L 58 AT ve A 07 20 20 CA 2 EK 18 54 11 11 RE 1 WI MC PH LL G AR IA CP MA M -H CY R AN # DI 1 SKAGGS LE R PO 51 12 12 3 25 30 TO 65 PO Ac LY 99 -0 -0 5. TA 98 CZ ti ET 10 5- 5- 00 L 56 AT ve HY 45 20 20 0 CA 6 EK LE 75 11 11 RE NE 8 WI PH LL GL AR IA YC MA M OL CY R # 33 1 50 PO WD ES 00 12 12 5 60 30 TO 65 PO Ac TR 59 -0 -0 .0 TA 98 CZ ti AD 10 5- 5- 00 L 56 AT ve IO 48 20 20 CA 7 EK L 70 11 11 RE 1 5 WI MG PH LL AR IA TA MA M BL CY R ET # 1 VE 00 12 12 5 18 25 TO 65 PO Ac NT 17 -0 -0 .0 TA 98 CZ ti OL 30 5- 5- 00 L 56 AT ve IN 68 20 20 CA 8 EK 22 11 11 RE HF 0 WI A PH LL 90 AR IA MA M MC CY R G # IN 1 SKAGGS LE R NE 00 12 12 11 30 30 TO 65 PO Ac XI 18 -0 -0 .0 TA 98 CZ ti UM 65 5- 5- 00 L 56 AT ve 04 20 [address] 08 11 11 RE 2 WI 40 PH LL AR IA MG MA M CY R CA # PS 1 UL E TR 45 12 12 5 15 25 TO 65 PO Ac IA 80 -0 -0 .0 TA 98 CZ ti MC 20 5- 5- 00 L 57 AT ve IN 06 20 20 CA 3 EK OL 53 11 11 RE ON 5 WI E PH LL 0. AR IA 5% MA M CY R CR # EA 1 M TR 53 12 12 5 60 30 TO 65 PO Ac AZ 48 -0 -0 .0 TA 98 CZ ti OD 90 5- 5- 00 L 57 AT ve ON 51 20 20 CA 5 EK E 10 11 11 RE 10 1 WI 0 PH LL MG AR IA MA M TA CY R BL # ET 1 PO 00 12 12 5 60 30 TO 65 PO Ac TA 78 -0 -0 .0 TA 98 CZ ti SS 15 5- 5- 00 L 57 AT ve IU 72 20 20 CA 6 EK M 01 11 11 RE CL 0 WI PH LL ER AR IA MA M 20 CY R # ME 1 Q TA BL ET HY 00 12 12 5 30 30 TO [address] 22 -0 -0 .0 TA 98 CZ ti OC 82 5- 5- 00 L 57 AT ve HL 82 20 20 CA 7 EK OR 01 11 11 RE OT 1 WI HI PH LL AZ AR IA ID MA M E CY R 12 # .5 1 MG TB TO 68 12 12 5 60 30 TO 65 PO Ac PI 46 -0 -0 .0 TA 98 CZ ti RA 20 5- 5- 00 L 58 AT ve MA 10 20 20 CA 1 EK TE 81 11 11 RE 0 WI 25 PH LL AR IA MG MA M CY R TA # BL 1 ET TR 53 11 11 1 30 30 TO 65 PO Ac AZ 48 -0 -2 .0 TA 97 E ti OD 90 9- 3- [address] ve ON 51 20 20 CA 0 AC E 70 11 11 RE Y 15 1 L 0 PH MG AR MA TA CY BL # ET 1 LA 68 11 11 1 15 30 TO 65 PO Ac MO 38 -0 -2 .0 TA 97 E ti TR 20 9- 3- [address] ve IG 00 20 20 CA 5 AC IN 81 11 11 RE Y E 0 L 10 PH 0 AR MG MA CY TA # BL 1 ET RI 50 11 11 2 2. 28 TO 65 PO Ac SP 45 -0 -2 00 TA 97 E ti ER 80 9- 3- [address] ve DA 30 20 20 CA 8 AC L 81 11 11 RE Y CO 1 L NS PH TA AR MA 50 CY # MG 1 SY R SP 00 11 11 0 30 30 ME 14 AR Ac IR 59 -0 -1 .0 D 98 NO ti IV 70 7- 9- 00 CA 74 LD ve A 07 20 20 RE 18 54 11 11 RI 1 PH CH MC AR AR G MA D CP CY W -H AN LL DI C SKAGGS LE R RI 50 11 11 0 2. 28 ME 15 AR Ac SP 45 -0 -1 00 D 08 NO ti ER 80 7- 4- 0 CA 03 LD ve DA 30 20 20 RE L 71 11 11 RI CO 1 PH CH NS AR AR TA MA D CY W 37 .5 LL C MG SY R RI 51 10 10 11 60 30 ME 20 AR Ac SP 07 -2 -2 .0 D 52 NO ti ER 90 7- 7- 00 CA 59 LD ve ID 46 20 20 RE ON 45 11 11 RI E 6 PH CH 3 AR AR MG MA D CY W TA BL LL ET C 00 10 10 11 60 30 ME 20 AR Ac 24 -2 -2 .0 D 52 NO ti 50 7- 7- 00 CA 60 LD ve 05 20 20 RE 80 11 11 RI 1 PH CH AR AR MA D CY W LL C TO 68 10 10 0 7. 7 ME 20 AR Ac PI 46 -2 -2 00 D 49 NO ti RA 20 6- 6- 0 CA 14 LD ve MA 10 20 20 RE TE 86 11 11 RI 0 PH CH 25 AR AR MA D MG CY W TA LL BL C ET ES 00 09 10 3 60 30 ME 59 AR Ac TR 59 -2 -2 .0 D 33 NO ti AD 10 4- 4- 00 CA 62 LD ve IO 48 20 20 RE 5 L 70 11 11 RI 1 1 PH CH MG AR AR MA D TA CY W BL ET LL C AZ 37 09 10 3 30 30 ME 59 AR Ac IL 00 -2 -2 .0 D 33 NO ti OS 00 4- 4- 00 CA 62 LD ve EC 45 20 20 RE 6 50 11 11 RI OT 4 PH CH C AR AR 20 MA D .6 CY W MG LL C TA BL ET HY 68 10 10 3 30 30 ME [address] 08 -2 -2 .0 D 17 NO ti OC 40 1- 1- 00 CA 81 LD ve HL 39 20 20 RE 8 OR 80 11 11 RI OT 1 PH CH HI AR AR AZ MA D ID CY W E 12 LL .5 C MG CP SP 00 08 10 3 30 30 ME 58 AR Ac IR 59 -2 -2 .0 D 36 NO ti IV 70 1- 0- 00 CA 11 LD ve A 07 20 20 RE 2 18 54 11 11 RI 1 PH CH MC AR AR G MA D CP CY W -H AN LL DI C SKAGGS LE R 00 10 10 3 90 30 ME 60 AR Ac 18 -1 -1 .0 D 10 NO ti 21 9- 9- 00 CA 05 LD ve 25 20 20 RE 1 98 11 11 RI 9 PH CH AR AR MA D CY W LL C RI 50 08 10 3 2. 28 ME 58 AR Ac SP 45 -2 -1 00 D 45 NO ti ER 80 2- 7- 0 CA 14 LD ve DA 30 20 20 RE 7 L 71 11 11 RI CO 1 PH CH NS AR AR TA MA D CY W 37 .5 LL C MG SY R LA 00 09 10 3 15 30 ME 58 AR Ac MO 09 -0 -0 .0 D 93 NO ti TR 30 5- 5- 00 CA 47 LD ve IG 46 20 20 RE 7 IN 30 11 11 RI E 1 PH CH 10 AR AR 0 MA D MG CY W TA LL BL C ET 62 10 10 3 20 5 ME 59 AR Ac 58 -0 -0 .0 D 93 NO ti 40 5- 5- 00 CA 84 LD ve 74 20 20 RE 8 70 11 11 RI 1 PH CH AR AR MA D CY W LL C RI 51 09 09 3 60 30 ME 59 AR Ac SP 07 -2 -2 .0 D 42 NO ti ER 90 6- 6- 00 CA 01 LD ve ID 46 20 20 RE 6 ON 45 11 11 RI E 6 PH CH 3 AR AR MG MA D CY W TA BL LL ET C 00 09 09 3 60 30 ME 59 AR Ac 24 -2 -2 .0 D 42 NO ti 50 6- 6- 00 CA 01 LD ve 05 20 20 RE 7 80 11 11 RI 1 PH CH AR AR MA D CY W LL C AZ 37 09 09 3 30 30 ME 59 AR Ac IL 00 -2 -2 .0 D 33 NO ti OS 00 4- 4- 00 CA 62 LD ve EC 45 20 20 RE 6 50 11 11 RI OT 4 PH CH C AR AR 20 MA D .6 CY W MG LL C TA BL ET ES 00 09 09 3 60 30 ME 59 AR Ac TR 59 -2 -2 .0 D 33 NO ti AD 10 4- 4- 00 CA 62 LD ve IO 48 20 20 RE 5 L 70 11 11 RI 1 1 PH CH MG AR AR MA D TA CY W BL ET LL C HY 68 06 09 3 30 30 ME [address] 08 -2 -2 .0 D 58 NO ti OC 40 3- 1- 00 CA 58 LD ve HL 39 20 20 RE 7 OR 80 11 11 RI OT 1 PH CH HI AR AR AZ MA D ID CY W E 12 LL .5 C MG CP SP 00 08 09 3 30 30 ME 58 AR Ac IR 59 -2 -2 .0 D 36 NO ti IV 70 1- 0- 00 CA 11 LD ve A 07 20 20 RE 2 18 54 11 11 RI 1 PH CH MC AR AR G MA D CP CY W -H AN LL DI C SKAGGS LE R 00 06 09 3 90 30 ME 56 AR Ac 18 -2 -1 .0 D 57 NO ti 21 1- 9- 00 CA 40 LD ve 25 20 20 RE 7 98 11 11 RI 9 PH CH AR AR MA D CY W LL C RI 50 08 09 3 2. 28 ME 58 AR Ac SP 45 -2 -1 00 D 45 NO ti ER 80 2- 9- 0 CA 14 LD ve DA 30 20 20 RE 7 L 71 11 11 RI CO 1 PH CH NS AR AR TA MA D CY W 37 .5 LL C MG SY R BU 00 09 09 3 28 7 ME 59 AR Ac TA 59 -1 -1 .0 D 48 NO ti LB 13 9- 9- 00 CA 54 LD ve -A 36 20 20 RE 1 CE 90 11 11 RI TA 1 PH CH [place] AR AR N- MA D CA CY W FF LL 50 C -3 25 -4 0 62 06 09 3 20 5 ME 57 AR Ac 58 -2 -1 .0 D 08 NO ti 40 7- 7- 00 CA 47 LD ve 74 20 20 RE 0 70 11 11 RI 1 PH CH AR AR MA D CY W LL C MA 00 07 09 3 30 7 ME 57 AR Ac PA 90 -0 -0 .0 D 41 NO ti P 41 8- 9- 00 CA 88 LD ve 50 98 20 20 RE 6 0 86 11 11 RI MG 1 PH CH AR AR TA MA D BL CY W ET LL C AZ 00 09 09 3 30 5 ME 59 AR Ac OM 60 -0 -0 .0 D 24 NO ti ET 35 9- 9- 00 CA 14 LD ve SKAGGS 43 20 20 RE 8 ZI 83 11 11 RI NE 2 PH CH AR AR 25 MA D CY W MG LL TA C BL ET LA 00 09 09 3 15 30 ME 58 AR Ac MO 09 -0 -0 .0 D 93 NO ti TR 30 5- 5- 00 CA 47 LD ve IG 46 20 20 RE 7 IN 30 11 11 RI E 1 PH CH 10 AR AR 0 MA D MG CY W TA LL BL C ET RI 51 05 08 3 60 30 ME 56 AR Ac SP 07 -3 -2 .0 D 05 NO ti ER 90 1- 7- 00 CA 80 LD ve ID 46 20 20 RE 2 ON 45 11 11 RI E 6 PH CH 3 AR AR MG MA D CY W TA BL LL ET C 00 05 08 3 60 30 ME 56 AR Ac 24 -3 -2 .0 D 05 NO ti 50 1- 7- 00 CA 80 LD ve 05 20 20 RE 3 80 11 11 RI 1 PH CH AR AR MA D CY W LL C ES 00 05 08 3 60 30 ME 55 AR Ac TR 59 -2 -2 .0 D 94 NO ti AD 10 7- 5- 00 CA 51 LD ve IO 48 20 20 RE 8 L 70 11 11 RI 1 1 PH CH MG AR AR MA D TA CY W BL ET LL C AZ 37 05 08 3 30 30 ME 55 AR Ac IL 00 -2 -2 .0 D 94 NO ti OS 00 7- 5- 00 CA 51 LD ve EC 45 20 20 RE 9 50 11 11 RI OT 4 PH CH C AR AR 20 MA D .6 CY W MG LL C TA BL ET HY 68 06 08 3 30 30 ME [address] 08 -2 -2 .0 D 58 NO ti OC 40 3- 2- 00 CA 58 LD ve HL 39 20 20 RE 7 OR 80 11 11 RI OT 1 PH CH HI AR AR AZ MA D ID CY W E 12 LL .5 C MG CP RI 50 08 08 3 2. 28 ME 58 AR Ac SP 45 -2 -2 00 D 45 NO ti ER 80 2- 2- 0 CA 14 LD ve DA 30 20 20 RE 7 L 71 11 11 RI CO 1 PH CH NS AR AR TA MA D CY W 37 .5 LL C MG SY R SP 00 08 08 3 30 30 ME 58 AR Ac IR 59 -2 -2 .0 D 36 NO ti IV 70 1- 1- 00 CA 11 LD ve A 07 20 20 RE 2 18 54 11 11 RI 1 PH CH MC AR AR G MA D CP CY W -H AN LL DI C SKAGGS LE R 00 06 08 3 90 30 ME 56 AR Ac 18 -2 -2 .0 D 57 NO ti 21 1- 0- 00 CA 40 LD ve 25 20 20 RE 7 98 11 11 RI 9 PH CH AR AR MA D CY W LL C 62 06 08 3 20 5 ME 57 AR Ac 58 -2 -1 .0 D 08 NO ti 40 7- 8- 00 CA 47 LD ve 74 20 20 RE 0 70 11 11 RI 1 PH CH AR AR MA D CY W LL C LA 00 05 08 3 30 30 ME 55 AR Ac MO 09 -0 -0 .0 D 35 NO ti TR 30 8- 6- 00 CA 93 LD ve IG 46 20 20 RE 2 IN 30 11 11 RI E 1 PH CH 10 AR AR 0 MA D MG CY W TA LL BL C ET MA 00 07 08 3 30 7 ME 57 AR Ac PA 90 -0 -0 .0 D 41 NO ti P 41 8- 5- 00 CA 88 LD ve 50 98 20 20 RE 6 0 86 11 11 RI MG 1 PH CH AR AR TA MA D BL CY W ET LL C RI 51 05 07 3 60 30 ME 56 AR Ac SP 07 -3 -3 .0 D 05 NO ti ER 90 1- 0- 00 CA 80 LD ve ID 46 20 20 RE 2 ON 45 11 11 RI E 6 PH CH 3 AR AR MG MA D CY W TA BL LL ET C 00 05 07 3 60 30 ME 56 AR Ac 24 -3 -3 .0 D 05 NO ti 50 1- 0- 00 CA 80 LD ve 05 20 20 RE 3 80 11 11 RI 1 PH CH AR AR MA D CY W LL C ES 00 05 07 3 60 30 ME 55 AR Ac TR 59 -2 -2 .0 D 94 NO ti AD 10 7- 6- 00 CA 51 LD ve IO 48 20 20 RE 8 L 70 11 11 RI 1 1 PH CH MG AR AR MA D TA CY W BL ET LL C AZ 37 05 07 3 30 30 ME 55 AR Ac IL 00 -2 -2 .0 D 94 NO ti OS 00 7- 6- 00 CA 51 LD ve EC 45 20 20 RE 9 50 11 11 RI OT 4 PH CH C AR AR 20 MA D .6 CY W MG LL C TA BL ET RI 50 05 07 3 2. 28 ME 55 AR Ac SP 45 -0 -2 00 D 22 NO ti ER 80 2- 5- 0 CA 45 LD ve DA 30 20 20 RE 3 L 71 11 11 RI CO 1 PH CH NS AR AR TA MA D CY W 37 .5 LL C MG SY R HY 68 06 07 3 30 30 ME [address] 08 -2 -2 .0 D 58 NO ti OC 40 3- 3- 00 CA 58 LD ve HL 39 20 20 RE 7 OR 80 11 11 RI OT 1 PH CH HI AR AR AZ MA D ID CY W E 12 LL .5 C MG CP SP 00 04 07 3 30 30 ME 55 AR Ac IR 59 -3 -2 .0 D 38 NO ti IV 70 0- 2- 00 CA 93 LD ve A 07 20 20 RE 6 18 54 11 11 RI 1 PH CH MC AR AR G MA D CP CY W -H AN LL DI C SKAGGS LE R 00 06 07 3 90 30 ME 56 AR Ac 18 -2 -2 .0 D 57 NO ti 21 1- 1- 00 CA 40 LD ve 25 20 20 RE 7 98 11 11 RI 9 PH CH AR AR MA D CY W LL C 62 06 07 3 20 5 ME 57 AR Ac 58 -2 -1 .0 D 08 NO ti 40 7- 8- 00 CA 47 LD ve 74 20 20 RE 0 70 11 11 RI 1 PH CH AR AR MA D CY W LL C MA 00 07 07 3 30 7 ME 57 AR Ac PA 90 -0 -0 .0 D 41 NO ti P 41 8- 8- 00 CA 88 LD ve 50 98 20 20 RE 6 0 86 11 11 RI MG 1 PH CH AR AR TA MA D BL CY W ET LL C LA 00 05 07 3 30 30 ME 55 AR Ac MO 09 -0 -0 .0 D 35 NO ti TR 30 8- 7- 00 CA 93 LD ve IG 46 20 20 RE 2 IN 30 11 11 RI E 1 PH CH 10 AR AR 0 MA D MG CY W TA LL BL C ET 00 05 06 3 60 30 ME 56 AR Ac 24 -3 -3 .0 D 05 NO ti 50 1- 0- 00 CA 80 LD ve 05 20 20 RE 3 80 11 11 RI 1 PH CH AR AR MA D CY W LL C RI 51 05 06 3 60 30 ME 56 AR Ac SP 07 -3 -3 .0 D 05 NO ti ER 90 1- 0- 00 CA 80 LD ve ID 46 20 20 RE 2 ON 45 11 11 RI E 6 PH CH 3 AR AR MG MA D CY W TA BL LL ET C 62 06 06 3 20 5 ME 57 AR Ac 58 -2 -2 .0 D 08 NO ti 40 7- 7- 00 CA 47 LD ve 74 20 20 RE 0 70 11 11 RI 1 PH CH AR AR MA D CY W LL C RI 50 05 06 3 2. 28 ME 55 AR Ac SP 45 -0 -2 00 D 22 NO ti ER 80 2- 7- 0 CA 45 LD ve DA 30 20 20 RE 3 L 71 11 11 RI CO 1 PH CH NS AR AR TA MA D CY W 37 .5 LL C MG SY R AZ 37 05 06 3 30 30 ME 55 AR Ac IL 00 -2 -2 .0 D 94 NO ti OS 00 7- 6- 00 CA 51 LD ve EC 45 20 20 RE 9 50 11 11 RI OT 4 PH CH C AR AR 20 MA D .6 CY W MG LL C TA BL ET ES 00 05 06 3 60 30 ME 55 AR Ac TR 59 -2 -2 .0 D 94 NO ti AD 10 7- 6- 00 CA 51 LD ve IO 48 20 20 RE 8 L 70 11 11 RI 1 1 PH CH MG AR AR MA D TA CY W BL ET LL C SP 00 04 06 3 30 30 ME 55 AR Ac IR 59 -3 -2 .0 D 38 NO ti IV 70 0- 4- 00 CA 93 LD ve A 07 20 20 RE 6 18 54 11 11 RI 1 PH CH MC AR AR G MA D CP CY W -H AN LL DI C SKAGGS LE R HY 68 06 06 3 30 30 ME [address] 08 -2 -2 .0 D 58 NO ti OC 40 3- 3- 00 CA 58 LD ve HL 39 20 20 RE 7 OR 80 11 11 RI OT 1 PH CH HI AR AR AZ MA D ID CY W E 12 LL .5 C MG CP 00 06 06 3 90 30 ME 56 AR Ac 18 -2 -2 .0 D 57 NO ti 21 1- 1- 00 CA 40 LD ve 25 20 20 RE 7 98 11 11 RI 9 PH CH AR AR MA D CY W LL C LA 00 05 06 3 30 30 ME 55 AR Ac MO 09 -0 -0 .0 D 35 NO ti TR 30 8- 7- 00 CA 93 LD ve IG 46 20 20 RE 2 IN 30 11 11 RI E 1 PH CH 10 AR AR 0 MA D MG CY W TA LL BL C ET 62 01 06 3 20 5 ME 52 AR Ac 58 -2 -0 .0 D 48 NO ti 40 6- 6- 00 CA 22 LD ve 74 20 20 RE 7 70 11 11 RI 1 PH CH AR AR MA D CY W LL C RI 51 05 05 3 60 30 ME 56 AR Ac SP 07 -3 -3 .0 D 05 NO ti ER 90 1- 1- 00 CA 80 LD ve ID 46 20 20 RE 2 ON 45 11 11 RI E 6 PH CH 3 AR AR MG MA D CY W TA BL LL ET C 00 05 05 3 60 30 ME 56 AR Ac 24 -3 -3 .0 D 05 NO ti 50 1- 1- 00 CA 80 LD ve 05 20 20 RE 3 80 11 11 RI 1 PH CH AR AR MA D CY W LL C RI 50 05 05 3 2. 28 ME 55 AR Ac SP 45 -0 -3 00 D 22 NO ti ER 80 2- 0- 0 CA 45 LD ve DA 30 20 20 RE 3 L 71 11 11 RI CO 1 PH CH NS AR AR TA MA D CY W 37 .5 LL C MG SY R SP 00 04 05 3 30 30 ME 55 AR Ac IR 59 -3 -2 .0 D 38 NO ti IV 70 0- 8- 00 CA 93 LD ve A 07 20 20 RE 6 18 54 11 11 RI 1 PH CH MC AR AR G MA D CP CY W -H AN LL DI C SKAGGS LE R ES 00 05 05 3 60 30 ME 55 AR Ac TR 59 -2 -2 .0 D 94 NO ti AD 10 7- 7- 00 CA 51 LD ve IO 48 20 20 RE 8 L 70 11 11 RI 1 1 PH CH MG AR AR MA D TA CY W BL ET LL C AZ 37 05 05 3 30 30 ME 55 AR Ac IL 00 -2 -2 .0 D 94 NO ti OS 00 7- 7- 00 CA 51 LD ve EC 45 20 20 RE 9 50 11 11 RI OT 4 PH CH C AR AR 20 MA D .6 CY W MG LL C TA BL ET HY 68 02 05 3 30 30 ME [address] 08 -2 -2 .0 D 14 NO ti OC 40 3- 4- 00 CA 34 LD ve HL 39 20 20 RE 3 OR 80 11 11 RI OT 1 PH CH HI AR AR AZ MA D ID CY W E 12 LL .5 C MG CP 00 02 05 3 90 30 ME 53 AR Ac 18 -2 -2 .0 D 12 NO ti 21 2- 2- 00 CA 81 LD ve 25 20 20 RE 2 98 11 11 RI 9 PH CH AR AR MA D CY W LL C MA 00 12 05 3 30 7 ME 51 AR Ac PA 90 -3 -1 .0 D 68 NO ti P 41 0- 6- 00 CA 80 LD ve 50 98 20 20 RE 9 0 86 10 11 RI MG 1 PH CH AR AR TA MA D BL CY W ET LL C LO 51 05 05 3 15 2 ME 55 AR Ac PE 07 -1 -1 .0 D 83 NO ti RA 90 6- 6- 00 CA 70 LD ve [place] 69 20 20 RE 2 DE 02 11 11 RI 2 0 PH CH AR AR MG MA D CY W CA PS LL UL C E LA 00 05 05 3 30 30 ME 55 AR Ac MO 09 -0 -0 .0 D 35 NO ti TR 30 8- 8- 00 CA 93 LD ve IG 46 20 20 RE 2 IN 30 11 11 RI E 1 PH CH 10 AR AR 0 MA D MG CY W TA LL BL C ET ME 49 05 05 3 21 7 ME 55 AR Ac CL 88 -0 -0 .0 D 56 NO ti IZ 40 6- 6- 00 CA 62 LD ve IN 03 20 20 RE 1 E 50 11 11 RI 25 1 PH CH AR AR MG MA D CY W TA BL LL ET C [place] 00 06 05 3 30 3 ME 46 AR Ac LK 90 -0 -0 0. D 04 NO ti 40 7- 6- 00 CA 08 LD ve OF 78 20 20 0 RE 2 81 10 11 RI MA 4 PH CH GN AR AR ES MA D IA CY W DIAZ LL SP C EN SI ON 00 05 05 3 30 10 ME 55 AR Ac 09 -0 -0 .0 D 55 NO ti 33 6- 6- 00 CA 63 LD ve 10 20 20 RE 9 99 11 11 RI 3 PH CH AR AR MA D CY W LL C RI 50 05 05 3 2. 28 ME 55 AR Ac SP 45 -0 -0 00 D 22 NO ti ER 80 2- 2- 0 CA 45 LD ve DA 30 20 20 RE 3 L 71 11 11 RI CO 1 PH CH NS AR AR TA MA D CY W 37 .5 LL C MG SY R RI 68 01 05 3 60 30 ME 52 AR Ac SP 38 -3 -0 .0 D 45 NO ti ER 20 1- 1- 00 CA 24 LD ve ID 11 20 20 RE 6 ON 60 11 11 RI E 5 PH CH 3 AR AR MG MA D CY W TA BL LL ET C 00 01 05 3 60 30 ME 52 AR Ac 24 -3 -0 .0 D 45 NO ti 50 1- 1- 00 CA 24 LD ve 05 20 20 RE 7 80 11 11 RI 1 PH CH AR AR MA D CY W LL C AZ 64 04 04 3 6. 5 ME 55 AR Ac IT 67 -3 -3 00 D 38 NO ti HR 90 0- 0- 0 CA 93 LD ve OM 96 20 20 RE 9 YC 10 11 11 RI IN 5 PH CH AR AR 25 MA D 0 CY W MG LL TA C BL ET SP 00 04 04 3 30 30 ME 55 AR Ac IR 59 -3 -3 .0 D 38 NO ti IV 70 0- 0- 00 CA 93 LD ve A 07 20 20 RE 6 18 54 11 11 RI 1 PH CH MC AR AR G MA D CP CY W -H AN LL DI C SKAGGS LE R AZ 00 04 04 3 7. 7 ME 55 AR Ac ED 05 -3 -3 00 D 38 NO ti NI 40 0- 0- 0 CA 93 LD ve SO 01 20 20 RE 8 NE 82 11 11 RI 0 PH CH 20 AR AR MA D MG CY W TA LL BL C ET ES 00 01 04 3 60 30 ME 52 AR Ac TR 59 -2 -2 .0 D 25 NO ti AD 10 7- 7- 00 CA 17 LD ve IO 48 20 20 RE 6 L 70 11 11 RI 1 1 PH CH MG AR AR MA D TA CY W BL ET LL C AZ 37 01 04 3 30 30 ME 52 AR Ac IL 00 -2 -2 .0 D 25 NO ti OS 00 7- 7- 00 CA 17 LD ve EC 45 20 20 RE 7 50 11 11 RI OT 4 PH CH C AR AR 20 MA D .6 CY W MG LL C TA BL ET HY 68 02 04 3 30 30 ME [address] 08 -2 -2 .0 D 14 NO ti OC 40 3- 4- 00 CA 34 LD ve HL 39 20 20 RE 3 OR 80 11 11 RI OT 1 PH CH HI AR AR AZ MA D ID CY W E 12 LL .5 C MG CP 00 02 04 3 90 30 ME 53 AR Ac 18 -2 -2 .0 D 12 NO ti 21 2- 4- 00 CA 81 LD ve 25 20 20 RE 2 98 11 11 RI 9 PH CH AR AR MA D CY W LL C ES 00 04 04 3 4. 3 ME 55 AR Ac TR 59 -2 -2 00 D 09 NO ti AD 10 1- 1- 0 CA 28 LD ve IO 48 20 20 RE 3 L 70 11 11 RI 1 1 PH CH MG AR AR MA D TA CY W BL ET LL C AZ 37 04 04 3 2. 3 ME 55 AR Ac IL 00 -2 -2 00 D 09 NO ti OS 00 1- 1- 0 CA 28 LD ve EC 45 20 20 RE 6 50 11 11 RI OT 4 PH CH C AR AR 20 MA D .6 CY W MG LL C TA BL ET 00 04 04 3 9. 3 ME 55 AR Ac 18 -2 -2 00 D 09 NO ti 21 1- 1- 0 CA 28 LD ve 25 20 20 RE 8 98 11 11 RI 9 PH CH AR AR MA D CY W LL C HY 68 04 04 3 2. 3 ME [address] 08 -2 -2 00 D 09 NO ti OC 40 1- 1- 0 CA 28 LD ve HL 39 20 20 RE 9 OR 80 11 11 RI OT 1 PH CH HI AR AR AZ MA D ID CY W E 12 LL .5 C MG CP 62 01 04 3 20 5 ME 52 AR Ac 58 -2 -1 .0 D 48 NO ti 40 6- 5- 00 CA 22 LD ve 74 20 20 RE 7 70 11 11 RI 1 PH CH AR AR MA D CY W LL C LA 00 12 04 3 30 30 ME 51 AR Ac MO 09 -1 -0 .0 D 02 NO ti TR 30 5- 8- 00 CA 28 LD ve IG 46 20 20 RE 7 IN 30 10 11 RI E 1 PH CH 10 AR AR 0 MA D MG CY W TA LL BL C ET RI 50 01 04 3 2. 28 ME 51 AR Ac SP 45 -1 -0 00 D 72 NO ti ER 80 0- 4- 0 CA 15 LD ve DA 30 20 20 RE 9 L 71 11 11 RI CO 1 PH CH NS AR AR TA MA D CY W 37 .5 LL C MG SY R RI 68 01 04 3 60 30 ME 52 AR Ac SP 38 -3 -0 .0 D 45 NO ti ER 20 1- 1- 00 CA 24 LD ve ID 11 20 20 RE 6 ON 60 11 11 RI E 5 PH CH 3 AR AR MG MA D CY W TA BL LL ET C 00 01 04 3 60 30 ME 52 AR Ac 24 -3 -0 .0 D 45 NO ti 50 1- 1- 00 CA 24 LD ve 05 20 20 RE 7 80 11 11 RI 1 PH CH AR AR MA D CY W LL C ES 00 01 03 3 60 30 ME 52 AR Ac TR 59 -2 -2 .0 D 25 NO ti AD 10 7- 8- 00 CA 17 LD ve IO 48 20 20 RE 6 L 70 11 11 RI 1 1 PH CH MG AR AR MA D TA CY W BL ET LL C PO 51 03 03 3 25 7 ME 54 AR Ac LY 99 -2 -2 5. D 35 NO ti ET 10 8- 8- 00 CA 84 LD ve HY 45 20 20 0 RE 8 LE 75 11 11 RI NE 8 PH CH AR AR GL MA D YC CY W OL LL 33 C 50 PO WD AZ 37 01 03 3 30 30 ME 52 AR Ac IL 00 -2 -2 .0 D 25 NO ti OS 00 7- 8- 00 CA 17 LD ve EC 45 20 20 RE 7 50 11 11 RI OT 4 PH CH C AR AR 20 MA D .6 CY W MG LL C TA BL ET HY 68 02 03 3 30 30 ME [address] 08 -2 -2 .0 D 14 NO ti OC 40 3- 5- 00 CA 34 LD ve HL 39 20 20 RE 3 OR 80 11 11 RI OT 1 PH CH HI AR AR AZ MA D ID CY W E 12 LL .5 C MG CP 00 02 03 3 90 30 ME 53 AR Ac 18 -2 -2 .0 D 12 NO ti 21 2- 4- 00 CA 81 LD ve 25 20 20 RE 2 98 11 11 RI 9 PH CH AR AR MA D CY W LL C LA 00 12 03 3 30 30 ME 51 AR Ac MO 09 -1 -1 .0 D 02 NO ti TR 30 5- 1- 00 CA 28 LD ve IG 46 20 20 RE 7 IN 30 10 11 RI E 1 PH CH 10 AR AR 0 MA D MG CY W TA LL BL C ET ES 00 03 03 3 10 5 ME 53 AR Ac TR 59 -1 -1 .0 D 88 NO ti AD 10 1- 1- 00 CA 71 LD ve IO 48 20 20 RE 7 L 70 11 11 RI 1 1 PH CH MG AR AR MA D TA CY W BL ET LL C 00 03 03 3 10 5 ME 53 AR Ac 24 -1 -1 .0 D 88 NO ti 50 1- 1- 00 CA 71 LD ve 05 20 20 RE 8 80 11 11 RI 1 PH CH AR AR MA D CY W LL C AZ 37 03 03 3 5. 5 ME 53 AR Ac IL 00 -1 -1 00 D 88 NO ti OS 00 1- 1- 0 CA 71 LD ve EC 45 20 20 RE 9 50 11 11 RI OT 4 PH CH C AR AR 20 MA D .6 CY W MG LL C TA BL ET RI 68 03 03 3 10 5 ME 53 AR Ac SP 38 -1 -1 .0 D 88 NO ti ER 20 1- 1- 00 CA 72 LD ve ID 11 20 20 RE 0 ON 60 11 11 RI E 5 PH CH 3 AR AR MG MA D CY W TA BL LL ET C 00 03 03 3 15 5 ME 53 AR Ac 18 -1 -1 .0 D 88 NO ti 21 1- 1- 00 CA 72 LD ve 25 20 20 RE 1 98 11 11 RI 9 PH CH AR AR MA D CY W LL C HY 68 03 03 3 5. 5 ME [address] 08 -1 -1 00 D 88 NO ti OC 40 1- 1- 0 CA 72 LD ve HL 39 20 20 RE 2 OR 80 11 11 RI OT 1 PH CH HI AR AR AZ MA D ID CY W E 12 LL .5 C MG CP RI 50 01 03 3 2. 28 ME 51 AR Ac SP 45 -1 -0 00 D 72 NO ti ER 80 0- 7- 0 CA 15 LD ve DA 30 20 20 RE 9 L 71 11 11 RI CO 1 PH CH NS AR AR TA MA D CY W 37 .5 LL C MG SY R 62 01 03 3 20 5 ME 52 AR Ac 58 -2 -0 .0 D 48 NO ti 40 6- 7- 00 CA 22 LD ve 74 20 20 RE 7 70 11 11 RI 1 PH CH AR AR MA D CY W LL C MA 00 12 03 3 30 7 ME 51 AR Ac PA 90 -3 -0 .0 D 68 NO ti P 41 0- 4- 00 CA 80 LD ve 50 98 20 20 RE 9 0 86 10 11 RI MG 1 PH CH AR AR TA MA D BL CY W ET LL C RI 68 01 03 3 60 30 ME 52 AR Ac SP 38 -3 -0 .0 D 45 NO ti ER 20 1- 2- 00 CA 24 LD ve ID 11 20 20 RE 6 ON 60 11 11 RI E 5 PH CH 3 AR AR MG MA D CY W TA BL LL ET C 00 01 03 3 60 30 ME 52 AR Ac 24 -3 -0 .0 D 45 NO ti 50 1- 2- 00 CA 24 LD ve 05 20 20 RE 7 80 11 11 RI 1 PH CH AR AR MA D CY W LL C ES 00 01 02 3 60 30 ME 52 AR Ac TR 59 -2 -2 .0 D 25 NO ti AD 10 7- 6- 00 CA 17 LD ve IO 48 20 20 RE 6 L 70 11 11 RI 1 1 PH CH MG AR AR MA D TA CY W BL ET LL C AZ 37 01 02 3 30 30 ME 52 AR Ac IL 00 -2 -2 .0 D 25 NO ti OS 00 7- 6- 00 CA 17 LD ve EC 45 20 20 RE 7 50 11 11 RI OT 4 PH CH C AR AR 20 MA D .6 CY W MG LL C TA BL ET HY 68 01 02 3 30 30 ME [address] 08 -2 -2 .0 D 14 NO ti OC 40 4- 3- 00 CA 34 LD ve HL 39 20 20 RE 3 OR 80 11 11 RI OT 1 PH CH HI AR AR AZ MA D ID CY W E 12 LL .5 C MG CP 00 02 02 3 90 30 ME 53 AR Ac 18 -2 -2 .0 D 12 NO ti 21 2- 2- 00 CA 81 LD ve 25 20 20 RE 2 98 11 11 RI 9 PH CH AR AR MA D CY W LL C LA 00 12 02 3 30 30 ME 51 AR Ac MO 09 -1 -1 .0 D 02 NO ti TR 30 5- 3- 00 CA 28 LD ve IG 46 20 20 RE 7 IN 30 10 11 RI E 1 PH CH 10 AR AR 0 MA D MG CY W TA LL BL C ET [place] 00 02 02 3 35 3 ME 53 AR Ac 90 -1 -1 5. D 01 NO ti AC 40 1- 1- 00 CA 04 LD ve ID 00 20 20 0 RE 8 41 11 11 RI DIAZ 4 PH CH SP AR AR EN MA D SI CY W ON LL C RI 50 01 02 3 2. 28 ME 51 AR Ac SP 45 -1 -0 00 D 72 NO ti ER 80 0- 7- 0 CA 15 LD ve DA 30 20 20 RE 9 L 71 11 11 RI CO 1 PH CH NS AR AR TA MA D CY W 37 .5 LL C MG SY R RI 68 01 01 3 60 30 ME 52 AR Ac SP 38 -3 -3 .0 D 45 NO ti ER 20 1- 1- 00 CA 24 LD ve ID 11 20 20 RE 6 ON 60 11 11 RI E 5 PH CH 3 AR AR MG MA D CY W TA BL LL ET C 00 01 01 3 60 30 ME 52 AR Ac 24 -3 -3 .0 D 45 NO ti 50 1- 1- 00 CA 24 LD ve 05 20 20 RE 7 80 11 11 RI 1 PH CH AR AR MA D CY W LL C AZ 37 01 01 3 30 30 ME 52 AR Ac IL 00 -2 -2 .0 D 25 NO ti OS 00 7- 7- 00 CA 17 LD ve EC 45 20 20 RE 7 50 11 11 RI OT 4 PH CH C AR AR 20 MA D .6 CY W MG LL C TA BL ET MA 00 12 01 3 30 7 ME 51 AR Ac PA 90 -3 -2 .0 D 68 NO ti P 41 0- 7- 00 CA 80 LD ve 50 98 20 20 RE 9 0 86 10 11 RI MG 1 PH CH AR AR TA MA D BL CY W ET LL C ES 00 01 01 3 60 30 ME 52 AR Ac TR 59 -2 -2 .0 D 25 NO ti AD 10 7- 7- 00 CA 17 LD ve IO 48 20 20 RE 6 L 70 11 11 RI 1 1 PH CH MG AR AR MA D TA CY W BL ET LL C 62 01 01 3 20 5 ME 52 AR Ac 58 -2 -2 .0 D 48 NO ti 40 6- 6- 00 CA 22 LD ve 74 20 20 RE 7 70 11 11 RI 1 PH CH AR AR MA D CY W LL C TR 00 01 01 3 90 30 ME 52 AR Ac AZ 90 -2 -2 .0 D 13 NO ti OD 43 3- 3- 00 CA 40 LD ve ON 99 20 20 RE 1 E 06 11 11 RI 50 1 PH CH AR AR MG MA D CY W TA BL LL ET C AN 00 01 01 3 20 7 ME 52 AR Ac TI 53 -1 -1 7. D 23 NO ti -D 61 8- 8- 00 CA 86 LD ve AN 99 20 [address] 55 11 11 RI UF 3 PH CH F AR AR 1% MA D CY W SH AM LL PO C O LA 00 12 01 3 30 30 ME 51 AR Ac MO 09 -1 -1 .0 D 02 NO ti TR 30 5- 4- 00 CA 28 LD ve IG 46 20 20 RE 7 IN 30 10 11 RI E 1 PH CH 10 AR AR 0 MA D MG CY W TA LL BL C ET RI 50 01 01 3 2. 28 ME 51 AR Ac SP 45 -1 -1 00 D 72 NO ti ER 80 0- 0- 0 CA 15 LD ve DA 30 20 20 RE 9 L 71 11 11 RI CO 1 PH CH NS AR AR TA MA D CY W 37 .5 LL C MG SY R AZ 64 01 01 3 6. 5 ME 51 AR Ac IT 67 -1 -1 00 D 99 NO ti HR 90 0- 0- 0 CA 83 LD ve OM 96 20 20 RE 2 YC 10 11 11 RI IN 5 PH CH AR AR 25 MA D 0 CY W MG LL TA C BL ET 00 01 01 3 23 4 ME 51 AR Ac 12 -1 -1 6. D 99 NO ti 10 0- 0- 00 CA 83 LD ve 63 20 20 0 RE 5 80 11 11 RI 4 PH CH AR AR MA D CY W LL C RI 68 10 01 3 60 30 ME 49 AR Ac SP 38 -0 -0 .0 D 09 NO ti ER 20 3- 1- 00 CA 54 LD ve ID 11 20 20 RE 9 ON 60 10 11 RI E 5 PH CH 3 AR AR MG MA D CY W TA BL LL ET C 00 10 01 3 60 30 ME 49 AR Ac 24 -0 -0 .0 D 09 NO ti 50 3- 1- 00 CA 55 LD ve 05 20 20 RE 1 80 10 11 RI 1 PH CH AR AR MA D CY W LL C MA 00 12 12 3 30 7 ME 51 AR Ac PA 90 -3 -3 .0 D 68 NO ti P 41 0- 0- 00 CA 80 LD ve 50 98 20 20 RE 9 0 86 10 10 RI MG 1 PH CH AR AR TA MA D BL CY W ET LL C ES 00 09 12 3 60 30 ME 49 AR Ac TR 59 -2 -2 .0 D 02 NO ti AD 10 9- 8- 00 CA 22 LD ve IO 48 20 20 RE 9 L 70 10 10 RI 1 1 PH CH MG AR AR MA D TA CY W BL ET LL C AZ 37 10 12 3 30 30 ME 49 AR Ac IL 00 -0 -2 .0 D 09 NO ti OS 00 1- 8- 00 CA 55 LD ve EC 45 20 20 RE 0 50 10 10 RI OT 4 PH CH C AR AR 20 MA D .6 CY W MG LL C TA BL ET HY 68 09 12 3 30 30 ME [address] 08 -2 -2 .0 D 90 NO ti OC 40 6- 6- 00 CA 52 LD ve HL 39 20 20 RE 6 OR 80 10 10 RI OT 1 PH CH HI AR AR AZ MA D ID CY W E 12 LL .5 C MG CP TR 00 09 12 3 90 30 ME 49 AR Ac AZ 90 -2 -2 .0 D 04 NO ti OD 43 7- 4- 00 CA 99 LD ve ON 99 20 20 RE 1 E 06 10 10 RI 50 1 PH CH AR AR MG MA D CY W TA BL LL ET C ES 00 12 12 3 12 6 ME 51 AR Ac TR 59 -2 -2 .0 D 36 NO ti AD 10 0- 0- 00 CA 32 LD ve IO 48 20 20 RE 0 L 70 10 10 RI 1 1 PH CH MG AR AR MA D TA CY W BL ET LL C 00 12 12 3 12 6 ME 51 AR Ac 24 -2 -2 .0 D 36 NO ti 50 0- 0- 00 CA 32 LD ve 05 20 20 RE 1 80 10 10 RI 1 PH CH AR AR MA D CY W LL C AZ 37 12 12 3 6. 6 ME 51 AR Ac IL 00 -2 -2 00 D 36 NO ti OS 00 0- 0- 0 CA 32 LD ve EC 45 20 20 RE 2 50 10 10 RI OT 4 PH CH C AR AR 20 MA D .6 CY W MG LL C TA BL ET RI 68 12 12 3 12 6 ME 51 AR Ac SP 38 -2 -2 .0 D 36 NO ti ER 20 0- 0- 00 CA 32 LD ve ID 11 20 20 RE 3 ON 60 10 10 RI E 5 PH CH 3 AR AR MG MA D CY W TA BL LL ET C HY 68 12 12 3 6. 6 ME [address] 08 -2 -2 00 D 36 NO ti OC 40 0- 0- 0 CA 33 LD ve HL 39 20 20 RE 4 OR 80 10 10 RI OT 1 PH CH HI AR AR AZ MA D ID CY W E 12 LL .5 C MG CP LA 00 12 12 3 30 30 ME 51 AR Ac MO 09 -1 -1 .0 D 02 NO ti TR 30 5- 5- 00 CA 28 LD ve IG 46 20 20 RE 7 IN 30 10 10 RI E 1 PH CH 10 AR AR 0 MA D MG CY W TA LL BL C ET RI 50 09 12 3 2. 28 ME 48 AR Ac SP 45 -2 -1 00 D 60 NO ti ER 80 0- 3- 0 CA 85 LD ve DA 30 20 20 RE 9 L 71 10 10 RI CO 1 PH CH NS AR AR TA MA D CY W 37 .5 LL C MG SY R RI 68 10 12 3 60 30 ME 49 AR Ac SP 38 -0 -0 .0 D 09 NO ti ER 20 3- 2- 00 CA 54 LD ve ID 11 20 20 RE 9 ON 60 10 10 RI E 5 PH CH 3 AR AR MG MA D CY W TA BL LL ET C 00 10 12 3 60 30 ME 49 AR Ac 24 -0 -0 .0 D 09 NO ti 50 3- 2- 00 CA 55 LD ve 05 20 20 RE 1 80 10 10 RI 1 PH CH AR AR MA D CY W LL C ES 00 09 11 3 60 30 ME 49 AR Ac TR 59 -2 -2 .0 D 02 NO ti AD 10 9- 8- 00 CA 22 LD ve IO 48 20 20 RE 9 L 70 10 10 RI 1 1 PH CH MG AR AR MA D TA CY W BL ET LL C AZ 37 10 11 3 30 30 ME 49 AR Ac IL 00 -0 -2 .0 D 09 NO ti OS 00 1- 8- 00 CA 55 LD ve EC 45 20 20 RE 0 50 10 10 RI OT 4 PH CH C AR AR 20 MA D .6 CY W MG LL C TA BL ET TR 00 09 11 3 90 30 ME 49 AR Ac AZ 90 -2 -2 .0 D 04 NO ti OD 43 7- 4- 00 CA 99 LD ve ON 99 20 20 RE 1 E 06 10 10 RI 50 1 PH CH AR AR MG MA D CY W TA BL LL ET C AZ 37 11 11 3 3. 3 ME 50 AR Ac IL 00 -2 -2 00 D 57 NO ti OS 00 3- 3- 0 CA 17 LD ve EC 45 20 20 RE 0 50 10 10 RI OT 4 PH CH C AR AR 20 MA D .6 CY W MG LL C TA BL ET HY 68 09 11 3 30 30 ME [address] 08 -2 -2 .0 D 90 NO ti OC 40 6- 3- 00 CA 52 LD ve HL 39 20 20 RE 6 OR 80 10 10 RI OT 1 PH CH HI AR AR AZ MA D ID CY W E 12 LL .5 C MG CP MA 00 11 11 3 12 3 ME 50 AR Ac PA 90 -2 -2 .0 D 57 NO ti P 41 3- 3- 00 CA 16 LD ve 50 98 20 20 RE 4 0 86 10 10 RI MG 1 PH CH AR AR TA MA D BL CY W ET LL C ES 00 11 11 3 6. 3 ME 50 AR Ac TR 59 -2 -2 00 D 57 NO ti AD 10 3- 3- 0 CA 16 LD ve IO 48 20 20 RE 5 L 70 10 10 RI 1 1 PH CH MG AR AR MA D TA CY W BL ET LL C RI 50 09 11 3 2. 28 ME 48 AR Ac SP 45 -2 -1 00 D 60 NO ti ER 80 0- 5- 0 CA 85 LD ve DA 30 20 20 RE 9 L 71 10 10 RI CO 1 PH CH NS AR AR TA MA D CY W 37 .5 LL C MG SY R LA 00 06 11 3 30 30 ME 46 AR Ac MO 09 -2 -1 .0 D 55 NO ti TR 30 5- 5- 00 CA 91 LD ve IG 46 20 20 RE 8 IN 30 10 10 RI E 1 PH CH 10 AR AR 0 MA D MG CY W TA LL BL C ET MA 00 06 11 3 30 7 ME 46 AR Ac PA 90 -0 -1 .0 D 04 NO ti P 41 7- 2- 00 CA 05 LD ve 50 98 20 20 RE 0 0 86 10 10 RI MG 1 PH CH AR AR TA MA D BL CY W ET LL C RI 68 10 11 3 60 30 ME 49 AR Ac SP 38 -0 -0 .0 D 09 NO ti ER 20 3- 2- 00 CA 54 LD ve ID 11 20 20 RE 9 ON 60 10 10 RI E 5 PH CH 3 AR AR MG MA D CY W TA BL LL ET C 00 10 11 3 60 30 ME 49 AR Ac 24 -0 -0 .0 D 09 NO ti 50 3- 2- 00 CA 55 LD ve 05 20 20 RE 1 80 10 10 RI 1 PH CH AR AR MA D CY W LL C LO 51 10 10 3 15 2 ME 49 AR Ac PE 07 -3 -3 .0 D 97 NO ti RA 90 0- 0- 00 CA 16 LD ve [place] 69 20 20 RE 9 DE 02 10 10 RI 2 0 PH CH AR AR MG MA D CY W CA PS LL UL C E ES 00 09 10 3 60 30 ME 49 AR Ac TR 59 -2 -2 .0 D 02 NO ti AD 10 9- 9- 00 CA 22 LD ve IO 48 20 20 RE 9 L 70 10 10 RI 1 1 PH CH MG AR AR MA D TA CY W BL ET LL C AZ 37 10 10 3 30 30 ME 49 AR Ac IL 00 -0 -2 .0 D 09 NO ti OS 00 1- 9- 00 CA 55 LD ve EC 45 20 20 RE 0 50 10 10 RI OT 4 PH CH C AR AR 20 MA D .6 CY W MG LL C TA BL ET AZ 68 10 10 3 30 5 ME 49 AR Ac OM 38 -2 -2 .0 D 96 NO ti ET 20 9- 9- 00 CA 38 LD ve SKAGGS 04 20 20 RE 6 ZI 11 10 10 RI NE 0 PH CH AR AR 25 MA D CY W MG LL TA C BL ET HY 68 09 10 3 30 30 ME [address] 08 -2 -2 .0 D 90 NO ti OC 40 6- 5- 00 CA 52 LD ve HL 39 20 20 RE 6 OR 80 10 10 RI OT 1 PH CH HI AR AR AZ MA D ID CY W E 12 LL .5 C MG CP TR 00 09 10 3 90 30 ME 49 AR Ac AZ 90 -2 -2 .0 D 04 NO ti OD 43 7- 5- 00 CA 99 LD ve ON 99 20 20 RE 1 E 06 10 10 RI 50 1 PH CH AR AR MG MA D CY W TA BL LL ET C LA 00 06 10 3 30 30 ME 46 AR Ac MO 09 -2 -1 .0 D 55 NO ti TR 30 5- 8- 00 CA 91 LD ve IG 46 20 20 RE 8 IN 30 10 10 RI E 1 PH CH 10 AR AR 0 MA D MG CY W TA LL BL C ET RI 50 09 10 3 2. 28 ME 48 AR Ac SP 45 -2 -1 00 D 60 NO ti ER 80 0- 8- 0 CA 85 LD ve DA 30 20 20 RE 9 L 71 10 10 RI CO 1 PH CH NS AR AR TA MA D CY W 37 .5 LL C MG SY R VE 00 06 10 3 18 16 ME 46 AR Ac NT 17 -0 -1 .0 D 04 NO ti OL 30 7- 1- 00 CA 09 LD ve IN 68 20 20 RE 3 22 10 10 RI HF 0 PH CH A AR AR 90 MA D CY W MC G LL IN C SKAGGS LE R MA 00 06 10 3 30 7 ME 46 AR Ac PA 90 -0 -0 .0 D 04 NO ti P 41 7- 6- 00 CA 05 LD ve 50 98 20 20 RE 0 0 86 10 10 RI MG 1 PH CH AR AR TA MA D BL CY W ET LL C RI 68 10 10 3 60 30 ME 49 AR Ac SP 38 -0 -0 .0 D 09 NO ti ER 20 3- 3- 00 CA 54 LD ve ID 11 20 20 RE 9 ON 60 10 10 RI E 5 PH CH 3 AR AR MG MA D CY W TA BL LL ET C 00 10 10 3 60 30 ME 49 AR Ac 24 -0 -0 .0 D 09 NO ti 50 3- 3- 00 CA 55 LD ve 05 20 20 RE 1 80 10 10 RI 1 PH CH AR AR MA D CY W LL C AZ 37 10 10 3 30 30 ME 49 AR Ac IL 00 -0 -0 .0 D 09 NO ti OS 00 1- 1- 00 CA 55 LD ve EC 45 20 20 RE 0 50 10 10 RI OT 4 PH CH C AR AR 20 MA D .6 CY W MG LL C TA BL ET ES 00 09 09 3 60 30 ME 49 AR Ac TR 59 -2 -2 .0 D 02 NO ti AD 10 9- 9- 00 CA 22 LD ve IO 48 20 20 RE 9 L 70 10 10 RI 1 1 PH CH MG AR AR MA D TA CY W BL ET LL C TR 00 09 09 3 90 30 ME 49 AR Ac AZ 90 -2 -2 .0 D 04 NO ti OD 43 7- 7- 00 CA 99 LD ve ON 99 20 20 RE 1 E 06 10 10 RI 50 1 PH CH AR AR MG MA D CY W TA BL LL ET C HY 68 09 09 3 30 30 ME [address] 08 -2 -2 .0 D 90 NO ti OC 40 6- 6- 00 CA 52 LD ve HL 39 20 20 RE 6 OR 80 10 10 RI OT 1 PH CH HI AR AR AZ MA D ID CY W E 12 LL .5 C MG CP LA 00 06 09 3 30 30 ME 46 AR Ac MO 09 -2 -2 .0 D 55 NO ti TR 30 5- 1- 00 CA 91 LD ve IG 46 20 20 RE 8 IN 30 10 10 RI E 1 PH CH 10 AR AR 0 MA D MG CY W TA LL BL C ET RI 50 09 09 3 2. 28 ME 48 AR Ac SP 45 -2 -2 00 D 60 NO ti ER 80 0- 0- 0 CA 85 LD ve DA 30 20 20 RE 9 L 71 10 10 RI CO 1 PH CH NS AR AR TA MA D CY W 37 .5 LL C MG SY R RI 68 06 09 3 60 30 ME 46 AR Ac SP 38 -0 -0 .0 D 04 NO ti ER 20 7- 3- 00 CA 00 LD ve ID 11 20 20 RE 3 ON 60 10 10 RI E 5 PH CH 3 AR AR MG MA D CY W TA BL LL ET C AZ 37 06 09 3 30 30 ME 46 AR Ac IL 00 -0 -0 .0 D 04 NO ti OS 00 7- 3- 00 CA 07 LD ve EC 45 20 20 RE 7 50 10 10 RI OT 4 PH CH C AR AR 20 MA D .6 CY W MG LL C TA BL ET 00 06 09 3 60 30 ME 46 AR Ac 24 -0 -0 .0 D 04 NO ti 50 7- 3- 00 CA 08 LD ve 05 20 20 RE 3 80 10 10 RI 1 PH CH AR AR MA D CY W LL C TR 50 06 09 3 30 30 ME 46 AR Ac AZ 11 -0 -0 .0 D 04 NO ti OD 10 7- 1- 00 CA 36 LD ve ON 44 20 20 RE 0 E 10 10 10 RI 15 2 PH CH 0 AR AR MG MA D CY W TA BL LL ET C ES 00 06 09 3 60 30 ME 46 AR Ac TR 59 -0 -0 .0 D 05 NO ti AD 10 7- 1- 00 CA 09 LD ve IO 48 20 20 RE 7 L 70 10 10 RI 1 1 PH CH MG AR AR MA D TA CY W BL ET LL C HY 68 06 08 3 30 30 ME [address] 08 -0 -2 .0 D 03 NO ti OC 40 7- 7- 00 CA 99 LD ve HL 39 20 20 RE 8 OR 80 10 10 RI OT 1 PH CH HI AR AR AZ MA D ID CY W E 12 LL .5 C MG CP ME 49 06 08 3 21 7 ME 46 AR Ac CL 88 -0 -2 .0 D 04 NO ti IZ 40 7- 7- 00 CA 07 LD ve IN 03 20 20 RE 3 E 50 10 10 RI 25 1 PH CH AR AR MG MA D CY W TA BL LL ET C RI 50 06 08 3 2. 28 ME 46 AR Ac SP 45 -0 -2 00 D 04 NO ti ER 80 7- 3- 0 CA 03 LD ve DA 30 20 20 RE 0 L 71 10 10 RI CO 1 PH CH NS AR AR TA MA D CY W 37 .5 LL C MG SY R LA 00 06 08 3 30 30 ME 46 AR Ac MO 09 -2 -2 .0 D 55 NO ti TR 30 5- 2- 00 CA 91 LD ve IG 46 20 20 RE 8 IN 30 10 10 RI E 1 PH CH 10 AR AR 0 MA D MG CY W TA LL BL C ET TR 50 06 08 3 30 30 ME 46 AR Ac AZ 11 -0 -0 .0 D 04 NO ti OD 10 7- 4- 00 CA 36 LD ve ON 44 20 20 RE 0 E 10 10 10 RI 15 2 PH CH 0 AR AR MG MA D CY W TA BL LL ET C ES 00 06 08 3 60 30 ME 46 AR Ac TR 59 -0 -0 .0 D 05 NO ti AD 10 7- 4- 00 CA 09 LD ve IO 48 20 20 RE 7 L 70 10 10 RI 1 1 PH CH MG AR AR MA D TA CY W BL ET LL C RI 68 06 08 3 60 30 ME 46 AR Ac SP 38 -0 -0 .0 D 04 NO ti ER 20 7- 4- 00 CA 00 LD ve ID 11 20 20 RE 3 ON 60 10 10 RI E 5 PH CH 3 AR AR MG MA D CY W TA BL LL ET C AZ 37 06 08 3 30 30 ME 46 AR Ac IL 00 -0 -0 .0 D 04 NO ti OS 00 7- 4- 00 CA 07 LD ve EC 45 20 20 RE 7 50 10 10 RI OT 4 PH CH C AR AR 20 MA D .6 CY W MG LL C TA BL ET 00 06 08 3 60 30 ME 46 AR Ac 24 -0 -0 .0 D 04 NO ti 50 7- 4- 00 CA 08 LD ve 05 20 20 RE 3 80 10 10 RI 1 PH CH AR AR MA D CY W LL C HY 68 06 07 3 30 30 ME [address] 08 -0 -3 .0 D 03 NO ti OC 40 7- 0- 00 CA 99 LD ve HL 39 20 20 RE 8 OR 80 10 10 RI OT 1 PH CH HI AR AR AZ MA D ID CY W E 12 LL .5 C MG CP ME 49 06 07 3 21 7 ME 46 AR Ac CL 88 -0 -2 .0 D 04 NO ti IZ 40 7- 8- 00 CA 07 LD ve IN 03 20 20 RE 3 E 50 10 10 RI 25 1 PH CH AR AR MG MA D CY W TA BL LL ET C RI 50 06 07 3 2. 28 ME 46 AR Ac SP 45 -0 -2 00 D 04 NO ti ER 80 7- 6- 0 CA 03 LD ve DA 30 20 20 RE 0 L 71 10 10 RI CO 1 PH CH NS AR AR TA MA D CY W 37 .5 LL C MG SY R LA 00 06 07 3 30 30 ME 46 AR Ac MO 09 -2 -2 .0 D 55 NO ti TR 30 5- 3- 00 CA 91 LD ve IG 46 20 20 RE 8 IN 30 10 10 RI E 1 PH CH 10 AR AR 0 MA D MG CY W TA LL BL C ET HY 68 06 07 3 30 30 ME [address] 08 -0 -0 .0 D 03 NO ti OC 40 7- 5- 00 CA 99 LD ve HL 39 20 20 RE 8 OR 80 10 10 RI OT 1 PH CH HI AR AR AZ MA D ID CY W E 12 LL .5 C MG CP AZ 37 06 07 3 30 30 ME 46 AR Ac IL 00 -0 -0 .0 D 04 NO ti OS 00 7- 5- 00 CA 07 LD ve EC 45 20 20 RE 7 50 10 10 RI OT 4 PH CH C AR AR 20 MA D .6 CY W MG LL C TA BL ET 00 06 07 3 60 30 ME 46 AR Ac 24 -0 -0 .0 D 04 NO ti 50 7- 5- 00 CA 08 LD ve 05 20 20 RE 3 80 10 10 RI 1 PH CH AR AR MA D CY W LL C TR 50 06 07 3 30 30 ME 46 AR Ac AZ 11 -0 -0 .0 D 04 NO ti OD 10 7- 5- 00 CA 36 LD ve ON 44 20 20 RE 0 E 10 10 10 RI 15 2 PH CH 0 AR AR MG MA D CY W TA BL LL ET C RI 68 06 07 3 60 30 ME 46 AR Ac SP 38 -0 -0 .0 D 04 NO ti ER 20 7- 5- 00 CA 00 LD ve ID 11 20 20 RE 3 ON 60 10 10 RI E 5 PH CH 3 AR AR MG MA D CY W TA BL LL ET C ES 00 06 07 3 60 30 ME 46 AR Ac TR 59 -0 -0 .0 D 05 NO ti AD 10 7- 5- 00 CA 09 LD ve IO 48 20 20 RE 7 L 70 10 10 RI 1 1 PH CH MG AR AR MA D TA CY W BL ET LL C RI 50 06 06 3 2. 28 ME 46 AR Ac SP 45 -0 -2 00 D 04 NO ti ER 80 7- 7- 0 CA 03 LD ve DA 30 20 20 RE 0 L 71 10 10 RI CO 1 PH CH NS AR AR TA MA D CY W 37 .5 LL C MG SY R LA 00 06 06 3 30 30 ME 46 AR Ac MO 09 -2 -2 .0 D 55 NO ti TR 30 5- 5- 00 CA 91 LD ve IG 46 20 20 RE 8 IN 30 10 10 RI E 1 PH CH 10 AR AR 0 MA D MG CY W TA LL BL C ET [place] 00 06 06 3 35 3 ME 46 AR Ac 90 -0 -0 5. D 05 NO ti AC 40 8- 8- 00 CA 62 LD ve ID 00 20 20 0 RE 3 41 10 10 RI DIAZ 4 PH CH SP AR AR EN MA D SI CY W ON LL C LA 68 06 06 3 30 30 ME 46 AR Ac MO 38 -0 -0 .0 D 04 NO ti TR 20 7- 7- 00 CA 05 LD ve IG 00 20 20 RE 8 IN 60 10 10 RI E 1 PH CH 25 AR AR MA D MG CY W TA LL BL C ET ME 49 06 06 3 21 7 ME 46 AR Ac CL 88 -0 -0 .0 D 04 NO ti IZ 40 7- 7- CA 07 LD ve IN 03 20 20 RE 3 E 50 10 10 RI 25 1 PH CH AR AR MG MA D CY W TA BL LL ET C AZ 37 06 06 3 30 30 ME 46 AR Ac IL 00 -0 -0 .0 D 04 NO ti OS 00 7 7 CA 07 LD ve EC 45 20 20 RE 7 50 10 10 RI OT 4 PH CH C AR AR 20 MA D .6 CY W MG LL C TA BL ET [place] 00 06 06 3 30 3 ME 46 AR Ac LK 90 -0 -0 0. D 04 NO ti 40 7- 7- 00 CA 08 LD ve OF 78 20 20 0 RE 2 81 10 10 RI MA 4 PH CH GN AR AR ES MA D IA CY W DIAZ LL SP C EN SI ON 00 06 06 3 60 30 ME 46 AR Ac 24 -0 -0 .0 D 04 NO ti 50 7- 7- 00 CA 08 LD ve 05 20 20 RE 3 80 10 10 RI 1 PH CH AR AR MA D CY W LL C VE 00 06 06 3 18 16 ME 46 AR Ac NT 17 -0 -0 .0 D 04 NO ti OL 30 7- 7- 00 CA 09 LD ve IN 68 20 20 RE 3 22 10 10 RI HF 0 PH CH A AR AR 90 MA D CY W MC G LL IN C SKAGGS LE R TR 50 06 06 3 30 30 ME 46 AR Ac AZ 11 -0 -0 .0 D 04 NO ti OD 10 7- 7- 00 CA 36 LD ve ON 44 20 20 RE 0 E 10 10 10 RI 15 2 PH CH 0 AR AR MG MA D CY W TA BL LL ET C ES 00 06 06 3 60 30 ME 46 AR Ac TR 59 -0 -0 .0 D 05 NO ti AD 10 7- 7- 00 CA 09 LD ve IO 48 20 20 RE 7 L 70 10 10 RI 1 1 PH CH MG AR AR MA D TA CY W BL ET LL C AN 00 06 06 3 20 7 ME 46 AR Ac TI 53 -0 -0 7. D 03 NO ti -D 61 7- 7- 00 CA 98 LD ve AN 99 20 [address] 55 10 10 RI UF 3 PH CH F AR AR 1% MA D CY W SH AM LL PO C O TR 00 06 06 3 30 5 ME 46 AR Ac IA 16 -0 -0 .0 D 03 NO ti MC 80 7- 7- 00 CA 99 LD ve IN 00 20 20 RE 2 OL 41 10 10 RI ON 5 PH CH E AR AR 0. MA D 1% CY W CR LL EA C M HY 68 06 06 3 30 30 ME [address] 08 -0 -0 .0 D 03 NO ti OC 40 7- 7- 00 CA 99 LD ve HL 39 20 20 RE 8 OR 80 10 10 RI OT 1 PH CH HI AR AR AZ MA D ID CY W E 12 LL .5 C MG CP RI 68 06 06 3 60 30 ME 46 AR Ac SP 38 -0 -0 .0 D 04 NO ti ER 20 7- 7- 00 CA 00 LD ve ID 11 20 20 RE 3 ON 60 10 10 RI E 5 PH CH 3 AR AR MG MA D CY W TA BL LL ET C RI 50 06 06 3 2. 28 ME 46 AR Ac SP 45 -0 -0 00 D 04 NO ti ER 80 7- 7- 0 CA 03 LD ve DA 30 20 20 RE 0 L 71 10 10 RI CO 1 PH CH NS AR AR TA MA D CY W 37 .5 LL C MG SY R MA 00 06 06 3 30 7 ME 46 AR Ac PA 90 -0 -0 .0 D 04 NO ti P 41 7- 7- 00 CA 05 LD ve 50 98 20 20 RE 0 0 86 10 10 RI MG 1 PH CH AR AR TA MA D BL CY W ET LL C HY 59 02 05 0 30 30 PH [address] 74 -2 -3 .0 AR 31 AT ti OC 60 2- 0- 00 ME 93 IN ve HL 38 20 20 RI 8 G OR 21 10 10 CA FR OT 0 # AN HI CE AZ 41 S ID 17 M E 12 .5 MG CP RI 50 02 05 0 2. 28 PH 69 KE Ac SP 45 -2 -2 00 AR 20 AT ti ER 80 2- 7- 0 ME 62 IN ve DA 30 20 20 RI 8 G L 71 10 10 CA FR CO 1 # AN NS CE TA 41 S 17 M 37 .5 MG SY R ES 00 02 05 0 30 30 PH 69 KE Ac TR 55 -2 -2 .0 AR 12 AT ti AD 50 2- 4- 00 ME 83 IN ve IO 88 20 20 RI 9 G L 70 10 10 CA FR 2 4 # AN MG CE 41 S TA 17 M BL ET 00 02 05 0 23 30 PH 69 KE Ac 09 -2 -2 .0 AR 10 AT ti 37 2- 4- 00 ME 87 IN ve 24 20 20 RI 7 G 20 10 10 CA FR 5 # AN CE 41 S 17 M LA 51 02 05 0 11 30 PH 69 KE Ac MO 67 -2 -2 .0 AR 12 AT ti TR 24 2- 4- 00 ME 83 IN ve IG 13 20 20 RI 7 G IN 00 10 10 CA FR E 1 # AN 25 CE 41 S MG 17 M TA BL ET TR 50 02 05 0 13 30 PH 69 KE Ac AZ 11 -2 -2 .0 AR 05 AT ti OD 10 2- 2- 00 ME 92 IN ve ON 44 20 20 RI 1 G E 10 10 10 CA FR 15 2 # AN 0 CE MG 41 S 17 M TA BL ET RI 50 02 05 0 2. 28 PH 68 KE Ac SP 45 -2 -0 00 AR 42 AT ti ER 80 2- 3- 0 ME 63 IN ve DA 30 20 20 RI 1 G L 71 10 10 CA FR CO 1 # AN NS CE TA 41 S 17 M 37 .5 MG SY R MA 00 02 05 0 30 4 PH 68 KE Ac PA 90 -2 -0 .0 AR 45 AT ti P 41 2- 3- 00 ME 23 IN ve 50 98 20 20 RI 8 G 0 88 10 10 CA FR MG 0 # AN CE TA 41 S BL 17 M ET PO 00 03 04 0 60 30 PH 68 KE Ac TA 78 -0 -3 .0 AR 34 AT ti SS 15 2- 0- 00 ME 24 IN ve IU 72 20 20 RI 8 G M 01 10 10 CA FR CL 0 # AN CE ER 41 S 17 M 20 ME Q TA BL ET AL 00 02 04 0 12 30 PH 68 KE Ac BU 37 -2 -2 0. AR 32 AT ti TE 80 2- 9- 00 ME 55 IN ve RO 57 20 20 0 RI 2 G L 20 10 10 CA FR DIAZ 1 # AN LF CE AT 41 S E 17 M 4 MG TA B ES 00 02 04 0 30 30 PH 68 KE Ac TR 55 -2 -2 .0 AR 26 AT ti AD 50 2- 7- 00 ME 58 IN ve IO 88 20 20 RI 6 G L 70 10 10 CA FR 2 4 # AN MG CE 41 S TA 17 M BL ET HY 59 02 04 0 30 30 PH [address] 74 -2 -2 .0 AR 26 AT ti OC 60 2- 7- 00 ME 58 IN ve HL 38 20 20 RI 8 G OR 21 10 10 CA FR OT 0 # AN HI CE AZ 41 S ID 17 M E 12 .5 MG CP LA 51 02 04 0 30 30 PH 68 KE Ac MO 67 -2 -2 .0 AR 21 AT ti TR 24 2- 6- 00 ME 77 IN ve IG 13 20 20 RI 5 G IN 00 10 10 CA FR E 1 # AN 25 CE 41 S MG 17 M TA BL ET 00 02 04 0 60 30 PH 68 KE Ac 09 -2 -2 .0 AR 08 AT ti 37 2- 2- 00 ME 42 IN ve 24 20 20 RI 5 G 20 10 10 CA FR 5 # AN CE 41 S 17 M TR 50 02 04 0 30 30 PH 68 KE Ac AZ 11 -2 -2 .0 AR 02 AT ti OD 10 2- 0- 00 ME 93 IN ve ON 44 20 20 RI 8 G E 10 10 10 CA FR 15 2 # AN 0 CE MG 41 S 17 M TA BL ET AN 00 02 04 0 20 7 PH 67 KE Ac TI 53 -2 -1 7. AR 79 AT ti -D 61 2- 3- 00 ME 55 IN ve AN 99 20 [address] 55 10 10 CA FR UF 3 # AN F CE 1% 41 S 17 M SH AM PO O RI 50 02 04 0 2. 28 PH 67 KE Ac SP 45 -2 -0 00 AR 69 AT ti ER 80 2- 9- 0 ME 68 IN ve DA 30 20 20 RI 9 G L 71 10 10 CA FR CO 1 # AN NS CE TA 41 S 17 M 37 .5 MG SY R PO 00 03 04 0 60 30 PH 67 KE Ac TA 78 -0 -0 .0 AR 50 AT ti SS 15 2- 4- 00 ME 42 IN ve IU 72 20 20 RI 8 G M 01 10 10 CA FR CL 0 # AN CE ER 41 S 17 M 20 ME Q TA BL ET HY 59 02 03 0 30 30 PH [address] 74 -2 -3 .0 AR 39 AT ti OC 60 2- 1- 00 ME 32 IN ve HL 38 20 20 RI 4 G OR 21 10 10 CA FR OT 0 # AN HI CE AZ 41 S ID 17 M E 12 .5 MG CP ES 00 02 03 0 30 30 PH 67 KE Ac TR 55 -2 -2 .0 AR 23 AT ti AD 50 2- 6- 00 ME 06 IN ve IO 88 20 20 RI 7 G L 70 10 10 CA FR 2 4 # AN MG CE 41 S TA 17 M BL ET LA 68 02 03 0 30 30 PH 67 KE Ac MO 38 -2 -2 .0 AR 08 AT ti TR 20 2- 2- 00 ME 67 IN ve IG 00 20 20 RI 7 G IN 61 10 10 CA FR E 0 # AN 25 CE 41 S MG 17 M TA BL ET AL 00 02 03 0 12 30 PH 67 KE Ac BU 37 -2 -2 0. AR 08 AT ti TE 80 2- 2- 00 ME 84 IN ve RO 57 20 20 0 RI 2 G L 20 10 10 CA FR DIAZ 1 # AN LF CE AT 41 S E 17 M 4 MG TA B 00 02 03 0 60 30 PH 67 KE Ac 09 -2 -2 .0 AR 03 AT ti 37 2- 0- 00 ME 13 IN ve 24 20 20 RI 3 G 20 10 10 CA FR 5 # AN CE 41 S 17 M TR 50 02 03 0 30 30 PH 67 KE Ac AZ 11 -2 -2 .0 AR 03 AT ti OD 10 2- 0- 00 ME 13 IN ve ON 44 20 20 RI 4 G E 10 10 10 CA FR 15 2 # AN 0 CE MG 41 S 17 M TA BL ET RI 50 02 03 0 1. 14 PH 66 KE Ac SP 45 -2 -1 00 AR 80 AT ti ER 80 2- 3- 0 ME 24 IN ve DA 30 20 20 RI 6 G L 71 10 10 CA FR CO 1 # AN NS CE TA 41 S 17 M 37 .5 MG SY R PO 00 03 03 0 60 30 PH 66 KE Ac TA 78 -0 -0 .0 AR 44 AT ti SS 15 2- 2- 00 ME 34 IN ve IU 72 20 20 RI 3 G M 01 10 10 CA FR CL 0 # AN CE ER 41 S 17 M 20 ME Q TA BL ET TR 50 01 02 00 30 30 PH 65 KE Ac AZ 11 -1 -2 .0 AR 89 AT ti OD 10 5- 6- 00 MA 45 IN ve ON 44 20 20 ME 3 G E 10 10 10 RI FR 15 2 CA AN 0 CE MG S M TA BL ET RI 50 01 02 00 1. 14 PH 65 KE Ac SP 45 -1 -2 00 AR 82 AT ti ER 80 5- 6- 0 MA 34 IN ve DA 30 20 20 ME 3 G L 71 10 10 RI FR CO 1 CA AN NS CE TA S M 37 .5 MG SY R 00 01 02 00 60 30 PH 65 KE Ac 09 -1 -2 .0 AR 98 AT ti 37 5- 6- 00 MA 97 IN ve 24 20 20 ME 7 G 20 10 10 RI FR 5 CA AN CE S M PO 00 01 02 00 60 30 PH 65 KE Ac TA 78 -1 -2 .0 AR 73 AT ti SS 15 5- 6- 00 MA 79 IN ve IU 72 20 20 ME 0 G M 01 10 10 RI FR CL 0 CA AN CE ER S M 20 ME Q TA BL ET AL 00 01 02 00 12 30 PH 65 KE Ac BU 37 -1 -2 0. AR 70 AT ti TE 80 5- 6- 00 MA 12 IN ve RO 57 20 20 0 ME 7 G L 20 10 10 RI FR DIAZ 1 CA AN LF CE AT S E M 4 MG TA B 00 01 02 00 11 30 PH 64 KE Ac 09 -0 -2 .0 AR 77 AT ti 37 8- 6- 00 MA 44 IN ve 24 20 20 ME 8 G 20 10 10 RI FR 5 CA AN CE S M PA 68 01 02 00 30 30 PH 65 KE Ac RO 38 -1 -1 .0 AR 59 AT ti XE 20 5- 1- 00 MA 52 IN ve TI 09 20 20 ME 5 G NE 81 10 10 RI FR 0 CA AN HC CE L S 20 M MG TA BL ET 00 11 02 00 47 30 PH 63 KE Ac 09 -3 -1 .0 AR 99 AT ti 37 0- 1- 00 MA 64 IN ve 24 20 20 ME 9 G 10 09 10 RI FR 5 CA AN CE S M 00 01 01 00 30 30 PH 64 KE Ac 09 -1 -2 .0 AR 99 AT ti 37 5- 8- 00 MA 71 IN ve 24 20 20 ME 5 G 20 10 10 RI FR 5 CA AN CE S M RI 50 01 01 00 1. 14 PH 64 KE Ac SP 45 -1 -2 00 AR 99 AT ti ER 80 5- 8- 0 MA 72 IN ve DA 30 20 20 ME 3 G L 71 10 10 RI FR CO 1 CA AN NS CE TA S M 37 .5 MG SY R HY 59 01 01 00 30 30 PH [address] 74 -1 -2 .0 AR 10 AT ti OC 60 5- 8- 00 MA 61 IN ve HL 38 20 20 ME 1 G OR 21 10 10 RI FR OT 0 CA AN HI CE AZ S ID M E 12 .5 MG CP ES 00 01 01 00 30 30 PH 65 KE Ac TR 55 -1 -2 .0 AR 10 AT ti AD 50 5- 8- 00 MA 60 IN ve IO 88 20 20 ME 8 G L 70 10 10 RI FR 2 4 CA AN MG CE S TA M BL ET TR 50 11 01 00 30 30 PH 64 KE Ac AZ 11 -3 -2 .0 AR 83 AT ti OD 10 0- 8- 00 MA 46 IN ve ON 44 20 20 ME 9 G E 10 09 10 RI FR 15 2 CA AN 0 CE MG S M TA BL ET 00 01 00 30 30 PH 64 KE Ac 09 -1 -2 .0 AR 99 AT ti 37 5- 8- 00 MA 71 IN ve 24 20 20 ME 9 G 00 10 10 RI FR 5 CA AN CE S M RI 00 01 01 00 30 30 PH 64 KE Ac SP 09 -1 -2 .0 AR 99 AT ti ER 37 5- 8- 00 MA 71 IN ve ID 24 20 20 ME 8 G ON 30 10 10 RI FR E 6 CA AN 4 CE MG S M TA BL ET PA 68 11 01 00 90 30 PH 64 KE Ac RO 38 -3 -1 .0 AR 51 AT ti XE 20 0- 4- 00 MA 34 IN ve TI 09 20 20 ME 8 G NE 81 09 10 RI FR 0 CA AN HC CE L S 20 M MG TA BL ET LO 00 01 01 00 30 10 PH 64 KE Ac RA 59 -0 -1 .0 AR 70 AT ti ZE 10 6- 4- 00 MA 28 IN ve PA 24 20 20 ME 3 G M 01 10 10 RI FR 0. 0 CA AN 5 CE MG S M TA BL ET VE 00 11 01 00 18 15 PH 64 KE Ac NT 17 -3 -1 .0 AR 44 AT ti OL 30 0- 4- 00 MA 27 IN ve IN 68 20 20 ME 4 G 22 09 10 RI FR HF 0 CA AN A CE 90 S M MC G IN SKAGGS LE R HY 59 11 12 00 30 30 PH [address] 74 -3 -3 .0 AR 11 AT ti OC 60 0- 1- 00 MA 41 IN ve HL 38 20 20 ME 6 G OR 21 09 09 RI FR OT 0 CA AN HI CE AZ S ID M E 12 .5 MG CP PO 00 11 12 00 60 30 PH 64 KE Ac TA 78 -3 -3 .0 AR 29 AT ti SS 15 0- 1- 00 MA 90 IN ve IU 72 20 20 ME 9 G M 01 09 09 RI FR CL 0 CA AN CE ER S M 20 ME Q TA BL ET ES 00 11 12 00 30 30 PH 64 KE Ac TR 55 -3 -3 .0 AR 03 AT ti AD 50 0- 1- 00 MA 95 IN ve IO 88 20 20 ME 6 G L 70 09 09 RI FR 2 4 CA AN MG CE S TA M BL ET TR 50 11 12 00 30 30 PH 64 KE Ac AZ 11 -3 -3 .0 AR 02 AT ti OD 10 0- 1- 00 MA 58 IN ve ON 44 20 20 ME 6 G E 10 09 09 RI FR 15 2 CA AN 0 CE MG S M TA BL ET 00 12 12 00 12 7 PH 63 KE Ac 12 -0 -1 0. AR 61 AT ti 10 3- 7- 00 MA 97 IN ve 74 20 20 0 ME 5 G 41 09 09 RI FR 6 CA AN CE S M MA 00 11 12 00 30 5 PH 63 KE Ac PA 90 -3 -1 .0 AR 51 AT ti P 41 0- 7- 00 MA 18 IN ve 50 98 20 20 ME 4 G 0 38 09 09 RI FR MG 0 CA AN CE CA S PL M ET 00 11 12 00 28 14 PH 63 KE Ac 09 -3 -1 .0 AR 51 AT ti 37 0- 7- 00 MA 17 IN ve 24 20 20 ME 9 G 10 09 09 RI FR 5 CA AN CE S M AL 00 09 12 00 12 30 PH 63 KE Ac BU 37 -0 -0 0. AR 14 AT ti TE 80 9- 3- 00 MA 17 IN ve RO 57 20 20 0 ME 3 G L 20 09 09 RI FR DIAZ 1 CA AN LF CE AT S E M 4 MG TA B 00 11 11 00 30 30 PH 62 KE Ac 09 -1 -1 .0 AR 95 AT ti 37 2- 9- 00 MA 32 IN ve 24 20 20 ME 8 G 00 09 09 RI FR 5 CA AN CE S M 00 10 11 00 4. 1 PH 61 KE Ac 53 -1 -1 00 AR 88 AT ti 63 0- 9- 0 MA 98 IN ve 10 20 20 ME 1 G 51 09 09 RI FR 0 CA AN CE S M PA 68 09 11 00 90 30 PH 61 KE Ac RO 38 -0 -1 .0 AR 90 AT ti XE 20 9- 9- 00 MA 06 IN ve TI 09 20 20 ME 8 G NE 81 09 09 RI FR 0 CA AN HC CE L S 20 M MG TA BL ET MU 00 11 11 00 22 3 PH 62 KE Ac PI 09 -0 -1 .0 AR 73 AT ti RO 31 5- 9- 00 MA 49 IN ve CI 01 20 20 ME 5 G N 04 09 09 RI FR 2% 2 CA AN CE OI S NT M ME NT AL 00 09 11 00 12 30 PH 61 KE Ac BU 37 -0 -1 0. AR 86 AT ti TE 80 9- 9- 00 MA 14 IN ve RO 57 20 20 0 ME 3 G L 20 09 09 RI FR DIAZ 1 CA AN LF CE AT S E M 4 MG TA B 00 09 11 00 60 30 PH 62 KE Ac 09 -0 -1 .0 AR 01 AT ti 37 9- 9- 00 MA 92 IN ve 24 20 20 ME 4 G 00 09 09 RI FR 5 CA AN CE S M MA 00 09 11 00 30 5 PH 62 KE Ac PA 90 -1 -1 .0 AR 56 AT ti P 41 6- 9- 00 MA 31 IN ve 50 98 20 20 ME 9 G 0 88 09 09 RI FR MG 0 CA AN CE TA S BL M ET AN 00 10 11 00 20 7 PH 62 KE Ac TI 53 -2 -1 7. AR 20 AT ti -D 61 0- 9- 00 MA 17 IN ve AN 99 20 20 [address] 55 09 09 RI FR UF 3 CA AN F CE 1% S M SH AM PO O ES 00 09 11 00 30 30 PH 62 KE Ac TR 55 -0 -1 .0 AR 73 AT ti AD 50 9- 9- 00 MA 73 IN ve IO 88 20 20 ME 7 G L 70 09 09 RI FR 2 4 CA AN MG CE S TA M BL ET PO 00 09 11 00 60 30 PH 61 KE Ac TA 78 -0 -1 .0 AR 76 AT ti SS 15 9- 9- 00 MA 96 IN ve IU 72 20 20 ME 3 G M 01 09 09 RI FR CL 0 CA AN CE ER S M 20 ME Q TA BL ET TR 50 09 11 00 30 30 PH 62 KE Ac AZ 11 -0 -1 .0 AR 71 AT ti OD 10 9- 9- 00 MA 44 IN ve ON 44 20 20 ME 6 G E 10 09 09 RI FR 15 2 CA AN 0 CE MG S M TA BL ET HY 59 09 11 00 30 30 PH [address] 74 -0 -1 .0 AR 70 AT ti OC 60 9- 9- 00 MA 89 IN ve HL 38 20 20 ME 8 G OR 21 09 09 RI FR OT 0 CA AN HI CE AZ S ID M E 12 .5 MG CP MA 00 09 10 00 30 3 PH 61 KE Ac PA 90 -1 -0 .0 AR 44 AT ti P 41 6- 8- 00 MA 62 IN ve 50 98 20 20 ME 7 G 0 88 09 09 RI FR MG 0 CA AN CE TA S BL M ET TR 00 09 10 00 15 5 PH 61 KE Ac IA 16 -2 -0 .0 AR 48 AT ti MC 80 8- 8- 00 MA 05 IN ve IN 00 20 20 ME 6 G OL 41 09 09 RI FR ON 5 CA AN E CE 0. S 1% M CR EA M CI 00 09 10 00 7. 12 PH 61 KE Ac AZ 06 -2 -0 50 AR 35 AT ti OD 58 4- 8- 0 MA 47 IN ve EX 53 20 20 ME 5 G 30 09 09 RI FR OT 2 CA AN IC CE S DIAZ M SP EN SI ON MA 00 09 09 00 30 3 PH 61 KE Ac PA 90 -1 -2 .0 AR 10 AT ti P 41 6- 4- 00 MA 08 IN ve 50 98 20 20 ME 6 G 0 88 09 09 RI FR MG 0 CA AN CE TA S BL M ET 00 09 09 00 60 30 PH 60 KE Ac 09 -0 -2 .0 AR 88 AT ti 37 9- 4- 00 MA 09 IN ve 24 20 20 ME 9 G 00 09 09 RI FR 5 CA AN CE S M ES 00 09 09 00 30 30 PH 60 KE Ac TR 55 -0 -2 .0 AR 88 AT ti AD 50 9- 4- 00 MA 08 IN ve IO 88 20 20 ME 0 G L 70 09 09 RI FR 2 4 CA AN MG CE S TA M BL ET PA 68 09 09 00 90 30 PH 60 KE Ac RO 38 -0 -2 .0 AR 88 AT ti XE 20 9- 4- 00 MA 10 IN ve TI 09 20 20 ME 3 G NE 81 09 09 RI FR 0 CA AN HC CE L S 20 M MG TA BL ET BI 00 09 09 00 5. 10 PH 60 KE Ac SA 71 -0 -2 00 AR 88 AT ti C- 30 9- 4- 0 MA 06 IN ve EV 10 20 20 ME 8 G AC 90 09 09 RI FR 5 CA AN 10 CE S MG M DIAZ PP OS IT OR Y ME 49 09 09 00 30 10 PH 61 KE Ac CL 88 -1 -2 .0 AR 12 AT ti IZ 40 7- 4- 00 MA 82 IN ve IN 03 20 20 ME 6 G E 51 09 09 RI FR 25 0 CA AN CE MG S M TA BL ET VE 00 09 09 00 18 15 PH 60 KE Ac NT 17 -0 -2 .0 AR 88 AT ti OL 30 9- 4- 00 MA 40 IN ve IN 68 20 20 ME 2 G 22 09 09 RI FR HF 0 CA AN A CE 90 S M MC G IN SKAGGS LE R PO 00 09 09 00 60 30 PH 60 KE Ac TA 78 -0 -2 .0 AR 88 AT ti SS 15 9- 4- 00 MA 07 IN ve IU 72 20 20 ME 9 G M 01 09 09 RI FR CL 0 CA AN CE ER S M 20 ME Q TA BL ET TR 50 09 09 00 30 30 PH 60 KE Ac AZ 11 -0 -2 .0 AR 88 AT ti OD 10 9- 4- 00 MA 10 IN ve ON 44 20 20 ME 0 G E 10 09 09 RI FR 15 2 CA AN 0 CE MG S M TA BL ET HY 59 09 09 00 30 30 PH [address] 74 -0 -2 .0 AR 88 AT ti OC 60 9- 4- 00 MA 10 IN ve HL 38 20 20 ME 4 G OR 21 09 09 RI FR OT 0 CA AN HI CE AZ S ID M E 12 .5 MG CP PA 68 06 09 01 30 30 WA 74 DE Ac RO 38 -3 -1 .0 L- 14 L ti XE 20 0- 0- 00 MA 31 CA ve TI 00 [address] NE 10 09 09 IL 6 PH LO HC AR L MA DE 40 CY CA LV MG #1 O 56 MA TA 9 RI BL A ET IS AB EL V QU 68 08 09 00 30 30 WA 74 DE Ac IN 18 -2 -1 .0 L- 23 L ti AP 00 6- 0- 00 MA 09 CA ve RI 55 [address] L 90 09 09 IL 40 9 PH LO AR MG MA DE CY CA TA LV BL #1 O ET 56 MA 9 RI A IS AB EL V PO 62 06 09 02 60 30 WA 74 DE Ac TA 03 -3 -1 .0 L- 14 L ti SS 70 0- 0- 00 MA 31 CA ve IU 56 [address] M 00 09 09 IL CL 5 PH LO AR ER MA DE CY CA 10 LV #1 O ME 56 MA Q 9 RI CA A PS IS UL AB E EL V AZ 37 06 09 01 30 30 WA 88 DE Ac IL 00 -3 -1 .0 L- 24 L ti OS 00 0- 0- 00 MA 48 CA ve EC 45 [address] 50 09 09 IL OT 4 PH LO C AR 20 MA DE .6 CY CA LV MG #1 O 56 MA TA 9 RI BL A ET IS AB EL V ES 00 08 09 00 30 30 WA 74 DE Ac TR 55 -2 -1 .0 L- 23 L ti AD 50 6- 0- 00 MA 09 CA ve IO 88 [address] L 70 09 09 [place] 2 2 PH LO MG AR MA DE TA CY CA BL LV ET #1 O 56 MA 9 RI A IS AB EL V AL 00 04 09 01 12 30 [place] 74 LE Ac BU 37 -2 -1 0. L- 10 WI ti TE 80 4- 0- 00 MA 00 S ve RO 57 20 20 0 RT 2 JR L 20 09 09 DIAZ [address] LF AR IG AT MA HT E CY E 4 MG #1 56 TA 9 B 60 08 08 00 30 30 [place] 74 No Ac 50 -1 -2 .0 L- 20 t ti 52 2- 7- 00 MA 99 Av ve 58 20 20 RT 7 ai 70 09 09 la 6 PH bl AR e MA CY #1 56 9 68 08 08 00 30 30 74 No Ac 64 -1 -2 .0 L- 20 t ti 50 2- 7- 00 MA 99 Av ve 18 20 20 RT 8 ai 05 09 09 la 4 PH bl AR e MA CY #1 56 9 QU 68 06 08 00 30 30 WA 74 DE Ac IN 18 -3 -1 .0 L- 14 L ti AP 00 0- 3- 00 MA 31 CA ve RI 55 [address] L 90 09 09 [place] 40 9 PH LO AR MG MA DE CY CA TA LV BL #1 O ET 56 MA 9 RI A IS AB EL V PA 68 06 08 00 30 30 WA 74 DE Ac RO 38 -3 -1 .0 L- 14 L ti XE 20 0- 3- 00 MA 31 CA ve TI 00 [address] NE 10 09 09 [place] 6 PH LO HC AR L MA DE 40 CY CA LV MG #1 O 56 MA TA 9 RI BL A ET IS AB EL V 00 06 08 01 4. 28 [place] 74 DE Ac 00 -3 -1 00 L- 14 L ti 60 0- 3- 0 MA 31 CA ve 26 [address] 71 09 09 IL 2 PH LO AR MA DE CY CA LV #1 O 56 MA 9 RI A IS AB EL V AZ 37 06 08 00 30 30 WA 88 DE Ac IL 00 -3 -1 .0 L- 24 L ti OS 00 0- 3- 00 MA 48 CA ve EC 45 [address] 50 09 09 IL OT 4 PH LO C AR 20 MA DE .6 CY CA LV MG #1 O 56 MA TA 9 RI BL A ET IS AB EL V 00 06 08 00 30 30 WA 74 DE Ac 37 -3 -1 .0 L- 14 L ti 80 0- 3- 00 MA 31 CA ve 81 [address] 09 09 09 IL 3 PH LO AR MA DE CY CA LV #1 O 56 MA 9 RI A IS AB EL V AL 00 06 08 00 12 30 WA 74 DE Ac BU 37 -3 -1 0. L- 14 L ti TE 80 0- 3- 00 MA 31 CA ve RO 57 20 [address] L 20 09 09 [place] DIAZ 1 PH LO LF AR AT MA DE E CY CA 4 LV MG #1 O 56 MA TA 9 RI B A IS AB EL V PO 62 06 08 01 60 30 WA 74 DE Ac TA 03 -3 -1 .0 L- 14 L ti SS 70 0- 3- 00 MA 31 CA ve IU 56 [address] M 00 09 09 [place] CL 5 PH LO AR ER MA DE CY CA 10 LV #1 O ME 56 MA Q 9 RI CA A PS IS UL AB E EL V AL 00 06 07 00 12 30 [place] 74 DE Ac BU 37 -3 -3 0. L- 14 L ti TE 80 0- 0- 00 MA 31 CA ve RO 57 20 [address] L 20 09 09 [place] DIAZ 1 PH LO LF AR AT MA DE E CY CA 4 LV MG #1 O 56 MA TA 9 RI B A IS AB EL V QU 68 06 07 00 30 30 [place] 74 DE Ac IN 18 -3 -3 .0 L- 14 L ti AP 00 0- 0- 00 MA 31 CA ve RI 55 [address] L 90 09 09 [place] 40 9 PH LO AR MG MA DE CY CA TA LV BL #1 O ET 56 MA 9 RI A IS AB EL V AZ 37 06 07 00 30 30 [place] 88 DE Ac IL 00 -3 -3 .0 L- 24 L ti OS 00 0- 0- 00 MA 48 CA ve EC 45 [address] 50 09 09 IL OT 4 PH LO C AR 20 MA DE .6 CY CA LV MG #1 O 56 MA TA 9 RI BL A ET IS AB EL V 00 06 07 00 4. 28 [place] 74 DE Ac 00 -3 -1 00 L- 14 L ti 60 0- 6- 0 MA 31 CA ve 26 [address] 71 09 09 [place] 2 PH LO AR MA DE CY CA LV #1 O 56 MA 9 RI A IS AB EL V PO 62 06 07 00 60 30 WA 74 DE Ac TA 03 -3 -1 .0 L- 14 L ti SS 70 0- 6- 00 MA 31 CA ve IU 56 [address] M 00 09 09 IL CL 5 PH LO AR ER MA DE CY CA 10 LV #1 O ME 56 MA Q 9 RI CA A PS IS UL AB E EL V AZ 00 06 07 00 6. 20 [place] 74 DE Ac OV 08 -3 -1 70 L- 14 L ti EN 51 0- 6- 0 MA 31 CA ve TI 13 [address] L 20 09 09 IL HF 1 PH LO A AR 90 MA DE CY CA MC LV G #1 O IN 56 MA SKAGGS 9 RI LE A R IS AB EL V MU 00 04 07 01 22 7 WA 74 LE Ac PI 09 -0 -1 .0 L- 07 WI ti RO 31 3- 6- 00 MA 61 S ve CI 01 20 20 RT 0 JR N 04 09 09 2% 2 PH DW AR IG OI MA HT NT CY E ME NT #1 56 9 15 04 07 00 30 30 [place] 74 LE Ac 33 -2 -1 .0 L- 10 WI ti 80 4- 6- 00 MA 00 S ve 13 20 20 RT 0 JR 33 [address] AR IG MA HT CY E #1 56 9 AZ 37 04 07 01 30 30 [place] 88 GH Ac IL 00 -2 -1 .0 L- 24 AN ti OS 00 6- 6- 00 MA 16 TA ve EC 45 20 20 RT 2 50 09 09 RA OT 3 PH ME C AR SH 20 MA .6 CY MG #1 56 TA 9 BL ET 54 04 07 01 30 30 [place] 74 GH Ac 45 -2 -1 .0 L- 04 AN ti 80 7- 6- 00 MA 38 TA ve 97 20 20 RT 5 01 09 09 RA 0 PH ME AR SH MA CY #1 56 9 AB 59 05 07 01 27 27 [place] 74 GH Ac IL 14 -0 -1 .0 L- 04 AN ti IF 80 1- 6- 00 MA 39 TA ve Y 00 20 20 RT 2 10 81 09 09 RA 3 PH ME MG AR SH MA TA CY BL ET #1 56 9 ES 00 04 07 01 30 30 [place] 74 GH Ac TR 55 -2 -1 .0 L- 04 AN ti AD 50 6- 6- 00 MA 39 TA ve IO 88 20 20 RT 1 L 70 09 09 RA 2 2 PH ME MG AR SH MA TA CY BL ET #1 56 9 QU 68 04 07 01 30 30 [place] 74 GH Ac IN 18 -2 -1 .0 L- 04 AN ti AP 00 7- 6- 00 MA 38 TA ve RI 55 20 20 RT 6 L 90 09 09 RA 40 9 PH ME AR SH MG MA CY TA BL #1 ET 56 9 PA 54 07 07 00 90 30 [place] 74 No Ac RO 45 -0 -1 .0 L- 15 t ti XE 80 8- 6- 00 MA 54 Av ve TI 98 20 20 RT 6 ai NE 91 09 09 la 0 PH bl HC AR e L MA 20 CY MG #1 56 TA 9 BL ET 54 07 07 00 30 30 [place] 74 No Ac 45 -0 -1 .0 L- 15 t ti 80 8- 6- 00 MA 54 Av ve 96 20 20 RT 7 ai 01 09 09 la 0 PH bl AR e MA CY #1 56 9 MU 00 04 07 00 22 7 [place] 74 LE Ac PI 09 -0 -0 .0 L- 07 WI ti RO 31 3- 2- 00 MA 61 S ve CI 01 20 20 RT 0 JR N 04 09 09 2% [address] AR IG OI MA HT NT CY E ME NT #1 56 9 00 10 07 00 6. 15 [place] 74 LE Ac 00 -2 -0 00 L- 09 WI ti 60 8- 2- 0 MA 99 S ve 26 20 20 RT 9 JR 71 [address] AR IG MA HT CY E #1 56 9 CR 00 10 06 00 30 30 [place] 74 LE Ac ES 31 -2 -1 .0 L- 10 WI ti TO 00 9- 8- 00 MA 00 S ve R 75 20 20 RT 1 JR 20 29 [address] MG AR IG MA HT TA CY E BL ET #1 56 9 AZ 37 04 06 00 30 30 [place] 88 GH Ac IL 00 -2 -1 .0 L- 24 AN ti OS 00 6- 8- 00 MA 16 TA ve EC 45 20 20 RT 2 50 09 09 RA OT 3 PH ME C AR SH 20 MA .6 CY MG #1 56 TA 9 BL ET PA 68 05 06 00 30 30 [place] 74 GH Ac RO 38 -0 -0 .0 L- 04 AN ti XE 20 1- 4- 00 MA 60 TA ve TI 00 20 20 RT 7 NE 10 09 09 RA 6 PH ME HC AR SH L MA 40 CY MG #1 56 TA 9 BL ET 54 05 06 01 30 30 [place] 74 GH Ac 45 -0 -0 .0 L- 04 AN ti 80 1- 4- 00 MA 39 TA ve 96 20 20 RT 3 11 09 09 RA 0 PH ME AR SH MA CY #1 56 9 QU 68 04 06 00 30 30 [place] 74 GH Ac IN 18 -2 -0 .0 L- 04 AN ti AP 00 7- 4- 00 MA 38 TA ve RI 55 20 20 RT 6 L 90 09 09 RA 40 9 PH ME AR SH MG MA CY TA BL #1 ET 56 9 54 04 06 00 30 30 [place] 74 GH Ac 45 -2 -0 .0 L- 04 AN ti 80 7- 4- 00 MA 38 TA ve 97 20 20 RT 5 01 09 09 RA 0 PH ME AR SH MA CY #1 56 9 AZ 00 04 06 01 6. 20 [place] 74 GH Ac OV 08 -2 -0 70 L- 04 AN ti EN 51 7- 4- 0 MA 38 TA ve TI 13 20 20 RT 9 L 20 09 09 RA HF 1 PH ME A AR SH 90 MA CY MC G #1 IN 56 SKAGGS 9 LE R AB 59 05 06 00 30 30 [place] 74 GH Ac IL 14 -0 -0 .0 L- 04 AN ti IF 80 1- 4- 00 MA 39 TA ve Y 00 20 20 RT 2 10 81 09 09 RA 3 PH ME MG AR SH MA TA CY BL ET #1 56 9 PO 62 04 06 01 60 30 [place] 74 GH Ac TA 03 -2 -0 .0 L- 04 AN ti SS 70 7- 4- 00 MA 38 TA ve IU 56 20 20 RT 8 M 00 09 09 RA CL 5 PH ME AR SH ER MA CY 10 #1 ME 56 Q 9 CA PS UL E ES 00 04 06 00 30 30 [place] 74 GH Ac TR 55 -2 -0 .0 L- 04 AN ti AD 50 6- 4- 00 MA 39 TA ve IO 88 20 20 RT 1 L 70 09 09 RA 2 2 PH ME MG AR SH MA TA CY BL ET #1 56 9 MU 00 04 06 00 22 7 [place] 74 LE Ac PI 09 -0 -0 .0 L- 07 WI ti RO 31 3- 4- 00 MA 61 S ve CI 01 20 20 RT 0 JR N 04 09 09 2% [address] AR IG OI MA HT NT CY E ME NT #1 56 9 53 05 06 00 30 3 WA 45 DE Ac 01 -2 -0 .0 L- 20 L ti 40 8- 4- 00 MA 37 CA ve 54 [address] 86 09 09 IL 7 PH LO AR MA DE CY CA LV #1 O 56 MA 9 RI A IS AB EL V AV 00 05 06 00 10 10 [place] 74 DE Ac EL 08 -2 -0 .0 L- 08 L ti OX 51 8- 4- 00 MA 66 CA ve 73 [address] 40 30 09 09 IL 0 1 PH LO MG AR MA DE TA CY CA BL LV ET #1 O 56 MA 9 RI A IS AB EL V AZ 00 05 06 00 5. 5 [place] 74 DE Ac ED 59 -2 -0 00 L- 08 L ti NI 15 8- 4- 0 MA 66 CA ve SO 44 [address] NE 30 09 09 IL 1 PH LO 20 AR MA DE MG CY CA LV TA #1 O BL 56 MA ET 9 RI A IS AB EL V CR 00 10 05 04 30 30 [place] 69 LE Ac ES 31 -2 -0 .0 L- 93 WI ti TO 00 9- 7- 00 MA 24 S ve R 75 20 20 RT 8 JR 20 29 08 [address] MG AR IG MA HT TA CY E BL ET #5 91 QU 68 09 05 06 30 30 [place] 69 LE Ac IN 18 -2 -0 .0 L- 88 WI ti AP 00 6- 7- 00 MA 87 S ve RI 55 20 20 RT 9 JR L 90 08 09 [address] AR IG MG MA HT CY E TA BL #5 ET 91 15 04 05 00 30 30 [place] 70 LE Ac 33 -2 -0 .0 L- 17 WI ti 80 4- 7- 00 MA 83 S ve 13 20 20 RT 2 JR 33 09 [address] AR IG MA HT CY E #5 91 AZ 37 10 05 04 30 30 [place] 88 LE Ac IL 00 -2 -0 .0 L- 13 WI ti OS 00 8- 7- 00 MA 00 S ve EC 45 20 20 RT 8 JR 50 08 09 OT [address] C AR IG 20 MA HT .6 CY E MG #5 91 TA BL ET ES 00 12 05 04 30 30 [place] 69 LE Ac TR 55 -1 -0 .0 L- 99 WI ti AD 50 2- 7- 00 MA 94 S ve IO 88 20 20 RT 1 JR L 70 08 09 [address] MG AR IG MA HT TA CY E BL ET #5 91 HY 00 03 05 01 30 30 [place] [address] 17 -3 -0 .0 L- 14 WI ti OC 22 0- 7- 00 MA 34 S ve HL 08 20 20 RT 0 JR OR 38 09 09 OT [address] HI AR IG AZ MA HT ID CY E E 25 #5 91 MG TA B PO 51 04 05 00 52 30 [place] 74 GH Ac LY 99 -2 -0 7. L- 04 AN ti ET 10 6- 7- 00 MA 38 TA ve HY 45 20 20 0 RT 7 LE 75 09 09 RA NE 7 PH ME AR SH GL MA YC CY OL #1 33 56 50 9 PO WD AZ 00 04 05 00 6. 20 [place] 74 GH Ac OV 08 -2 -0 70 L- 04 AN ti EN 51 7- 7- 0 MA 38 TA ve TI 13 20 20 RT 9 L 20 09 09 RA HF 1 PH ME A AR SH 90 MA CY MC G #1 IN 56 SKAGGS 9 LE R 54 05 05 00 30 30 [place] 74 GH Ac 45 -0 -0 .0 L- 04 AN ti 80 1- 7- 00 MA 39 TA ve 96 20 20 RT 3 11 09 09 RA 0 PH ME AR SH MA CY #1 56 9 PO 62 04 05 00 60 30 [place] 74 GH Ac TA 03 -2 -0 .0 L- 04 AN ti SS 70 7- 7- 00 MA 38 TA ve IU 56 20 20 RT 8 M 00 09 09 RA CL 5 PH ME AR SH ER MA CY 10 #1 ME 56 Q 9 CA PS UL E MU 00 04 04 00 22 7 [place] 70 LE Ac PI 09 -0 -2 .0 L- 14 WI ti RO 31 3- 3- 00 MA 96 S ve CI 01 20 20 RT 2 JR N 04 09 09 2% [address] AR IG OI MA HT NT CY E ME NT #5 91 VE 00 04 04 02 18 25 WA 69 LE Ac NT 17 -2 -2 .0 L- 69 WI ti OL 30 9- 3- 00 MA 95 S ve IN 68 20 20 RT 0 JR 22 08 09 [address] A AR IG 90 MA HT CY E MC G #5 IN 91 SKAGGS LE R CE 68 04 04 00 30 10 [place] 70 LE Ac PH 18 -0 -0 .0 L- 14 WI ti AL 00 3- 9- 00 MA 96 S ve EX 12 20 20 RT 7 JR IN 20 09 [address] 50 AR IG 0 MA HT MG CY E CA #5 PS 91 UL E LO 63 04 04 00 30 10 WA 44 LE Ac RA 30 -0 -0 .0 L- 75 WI ti ZE 40 3- 9- 00 MA 65 S ve PA 77 20 20 RT 8 JR M 20 09 [address] 5 AR IG MG MA HT CY E TA BL #5 ET 91 ES 00 12 04 03 30 30 [place] 69 LE Ac TR 55 -1 -0 .0 L- 99 WI ti AD 50 2- 9- 00 MA 94 S ve IO 88 20 20 RT 1 JR L 70 08 09 [address] MG AR IG MA HT TA CY E BL ET #5 91 15 10 04 04 30 30 [place] 69 LE Ac 33 -0 -0 .0 L- 90 WI ti 80 4- 9- 00 MA 04 S ve 13 20 20 RT 3 JR 33 08 [address] AR IG MA HT CY E #5 91 AZ 37 10 04 03 30 30 [place] 88 LE Ac IL 00 -2 -0 .0 L- 13 WI ti OS 00 8- 9- 00 MA 00 S ve EC 45 20 20 RT 8 JR 50 08 09 [address] C AR IG 20 MA HT .6 CY E MG #5 91 TA BL ET AL 00 09 04 05 12 30 [place] 69 LE Ac BU 37 -2 -0 0. L- 88 WI ti TE 80 6- 9- 00 MA 95 S ve RO 57 20 20 0 RT 6 JR L 20 08 09 DIAZ [address] LF AR IG AT MA HT E CY E 4 MG #5 91 TA B QU 68 09 04 05 30 30 [place] 69 LE Ac IN 18 -2 -0 .0 L- 88 WI ti AP 00 6- 9- 00 MA 87 S ve RI 55 20 20 RT 9 JR L 90 08 09 [address] AR IG MG MA HT CY E TA BL #5 ET 91 IP 00 11 04 02 36 30 PU 19 LE Ac RA 37 -2 -0 0. LM 16 WI ti T- 86 1- 9- 00 O 66 S ve AL 98 20 20 0 DO 7 JR BU 89 08 09 SE T 1 DW 0. PH IG 5- AR HT 3( MA E 2. CY 5) MG /3 ML HY 00 03 04 00 30 [address] [place] [address] 17 -3 -0 .0 L- 14 WI ti OC 22 0- 9- 00 MA 34 S ve HL 08 20 20 RT 0 JR OR 38 09 09 OT [address] HI AR IG AZ MA HT ID CY E E 25 #5 91 MG TA B PA 68 10 04 01 30 30 [place] 69 No Ac RO 38 -0 -0 .0 L- 97 t ti XE 20 7- 9- 00 MA 83 Av ve TI 00 20 20 RT 8 ai NE 10 08 09 la 6 PH bl HC AR e L MA 40 CY MG #5 91 TA BL ET ES 00 12 03 03 30 30 [place] 69 LE Ac TR 55 -1 -2 .0 L- 99 WI ti AD 50 2- 6- 00 MA 94 S ve IO 88 20 20 RT 1 JR L 70 08 09 [address] MG AR IG MA HT TA CY E BL ET #5 91 QU 68 09 03 05 30 30 [place] 69 LE Ac IN 18 -2 -2 .0 L- 88 WI ti AP 00 6- 6- 00 MA 87 S ve RI 55 20 20 RT 9 JR L 90 08 09 [address] AR IG MG MA HT CY E TA BL #5 ET 91 LO 63 02 03 01 30 10 WA 44 LE Ac RA 30 -2 -2 .0 L- 74 WI ti ZE 40 3- 6- 00 MA 61 S ve PA 77 20 20 RT 3 JR M 20 09 [address] 5 AR IG MG MA HT CY E TA BL #5 ET 91 15 10 03 03 30 30 [place] 69 LE Ac 33 -0 -1 .0 L- 90 WI ti 80 4- 2- 00 MA 04 S ve 13 20 20 RT 3 JR 33 08 [address] AR IG MA HT CY E #5 91 AL 00 09 03 04 12 30 [place] 69 LE Ac BU 37 -2 -1 0. L- 88 WI ti TE 80 6- 2- 00 MA 95 S ve RO 57 20 20 0 RT 6 JR L 20 08 09 DIAZ [address] LF AR IG AT MA HT E CY E 4 MG #5 91 TA B AZ 37 10 03 02 30 30 [place] 88 LE Ac IL 00 -2 -1 .0 L- 13 WI ti OS 00 8- 2- 00 MA 00 S ve EC 45 20 20 RT 8 JR 50 08 09 OT [address] C AR IG 20 MA HT .6 CY E MG #5 91 TA BL ET QU 68 09 03 04 30 30 WA 69 LE Ac IN 18 -2 -1 .0 L- 88 WI ti AP 00 6- 2- 00 MA 87 S ve RI 55 20 20 RT 9 JR L 90 08 09 [address] AR IG MG MA HT CY E TA BL #5 ET 91 LO 63 02 03 00 30 10 WA 44 LE Ac RA 30 -2 -1 .0 L- 74 WI ti ZE 40 3- 2- 00 MA 61 S ve PA 77 20 20 RT 3 JR M 20 09 [address] 5 AR IG MG MA HT CY E TA BL #5 ET 91 HY 00 03 03 09 30 30 [place] [address] 17 -1 -1 .0 L- 63 WI ti OC 22 0- 2- 00 MA 51 S ve HL 08 20 20 RT 0 JR OR 38 08 09 OT [address] HI AR IG AZ MA HT ID CY E E 25 #5 91 MG TA B ES 00 12 03 02 30 30 WA 69 LE Ac TR 55 -1 -1 .0 L- 99 WI ti AD 50 2- 2- 00 MA 94 S ve IO 88 20 20 RT 1 JR L 70 08 09 [address] MG AR IG MA HT TA CY E BL ET #5 91 IP 00 11 03 02 36 30 PU 19 LE Ac RA 37 -2 -1 0. LM 16 WI ti T- 86 1- 2- 00 O 66 S ve AL 98 20 20 0 DO 7 JR BU 89 08 09 SE T 1 DW 0. PH IG 5- AR HT 3( MA E 2. CY 5) MG /3 ML 00 10 03 03 6. 30 [place] 69 LE Ac 00 -2 -1 00 L- 93 WI ti 60 8- 2- 0 MA 10 S ve 26 20 20 RT 7 JR 71 08 [address] AR IG MA HT CY E #5 91 CR 00 10 03 03 30 30 [place] 69 LE Ac ES 31 -2 -1 .0 L- 93 WI ti TO 00 9- 2- 00 MA 24 S ve R 75 20 20 RT 8 JR 20 29 08 [address] MG AR IG MA HT TA CY E BL ET #5 91 PA 68 12 03 02 30 30 [place] 69 No Ac RO 38 -1 -1 .0 L- 99 t ti XE 20 0- 2- 00 MA 94 Av ve TI 00 20 20 RT 0 ai NE 10 08 09 la 6 PH bl HC AR e L MA 40 CY MG #5 91 TA BL ET PA 68 12 02 02 30 30 [place] 69 No Ac RO 38 -1 -2 .0 L- 99 t ti XE 20 0- 6- 00 MA 94 Av ve TI 00 20 20 RT 0 ai NE 10 08 09 la 6 PH bl HC AR e L MA 40 CY MG #5 91 TA BL ET 15 10 02 02 30 30 [place] 69 LE Ac 33 -0 -1 .0 L- 90 WI ti 80 4- 2- 00 MA 04 S ve 13 20 20 RT 3 JR 33 [address] AR IG MA HT CY E #5 91 00 12 02 02 30 10 [place] 44 LE Ac 78 -1 -1 .0 L- 72 WI ti 11 2- 2- 00 MA 90 S ve 40 20 20 RT 0 JR 30 08 [address] AR IG MA HT CY E #5 91 HY 00 03 02 08 30 30 [place] [address] 17 -1 -1 .0 L- 63 WI ti OC 22 0- 2- 00 MA 51 S ve HL 08 20 20 RT 0 JR OR 38 08 09 OT 0 [address] DW HI AR IG AZ MA HT ID CY E E 25 #5 91 MG TA B AZ 37 10 06 11 30 30 [place] 88 LE Ac IL 00 -2 -1 .0 L- 13 WI ti OS 00 8- 2- 00 MA 00 S ve EC 45 20 20 RT 8 JR 50 08 09 OT [address] C AR IG 20 MA HT .6 CY E MG #5 91 TA BL ET ES 00 12 05 11 29 30 [place] 69 LE Ac TR 55 -1 -3 .0 L- 99 WI ti AD 50 2- 0- 00 MA 94 S ve IO 88 20 20 RT 1 JR L 70 08 09 [address] MG AR IG MA HT TA CY E BL ET #5 91 CR 00 10 05 12 29 30 [place] 69 LE Ac ES 31 -2 -3 .0 L- 93 WI ti TO 00 9- 0- 00 MA 24 S ve R 75 20 20 RT 8 JR 20 29 08 [address] MG AR IG MA HT TA CY E BL ET #5 91 AL 00 09 01 07 20 30 [place] 69 LE Ac BU 37 -2 -3 0. L- 88 WI ti TE 80 6- 0- 00 MA 95 S ve RO 57 20 20 0 RT 6 JR L 20 08 09 DIAZ [address] LF AR IG AT MA HT E CY E 4 MG #5 91 TA B 00 12 05 11 30 10 [place] 44 LE Ac 78 -1 -3 .0 L- 72 WI ti 11 2- 0- 00 MA 90 S ve 40 20 20 RT 0 JR 30 08 [address] AR IG MA HT CY E #5 91 QU 68 09 05 13 30 30 WA 69 LE Ac IN 18 -2 -3 .0 L- 88 WI ti AP 00 6- 0- 00 MA 87 S ve RI 55 20 20 RT 9 JR L 90 08 09 [address] AR IG MG MA HT CY E TA BL #5 ET 91 PA 68 12 05 11 30 30 [place] 69 No Ac RO 38 -1 -3 .0 L- 99 t ti XE 20 0- 0- 00 MA 94 Av ve TI 00 20 20 RT 0 ai NE 10 08 09 la 6 PH bl HC AR e L MA 40 CY MG #5 91 TA BL ET 00 05 30 30 [place] 69 No Ac 09 -0 -1 .0 L- 71 t ti 31 7- 5- 00 MA 13 Av ve 03 20 20 RT 0 ai 90 08 09 la 1 PH bl AR e MA CY #5 91 HY 00 03 01 08 30 30 [place] [address] 17 -1 -1 .0 L- 63 WI ti OC 22 0- 5- 00 MA 51 S ve HL 08 20 20 RT 0 JR OR 38 08 09 OT [address] HI AR IG AZ MA HT ID CY E E 25 #5 91 MG TA B 00 10 01 02 30 30 [place] 69 LE Ac 24 -0 -1 .0 L- 90 WI ti 50 4- 5- 00 MA 04 S ve 05 20 20 RT 3 JR 81 08 [address] AR IG MA HT CY E #5 91 00 10 01 02 6. 30 [place] 69 LE Ac 00 -2 -1 00 L- 93 WI ti 60 8- 5- 0 MA 10 S ve 26 20 20 RT 7 JR 71 08 09 [address] AR IG MA HT CY E #5 91 IP 00 11 01 01 36 30 PU 19 LE Ac RA 37 -2 -0 0. LM 16 WI ti T- 86 1- 1- 00 O 66 S ve AL 98 20 20 0 DO 7 JR BU 89 08 09 SE T 1 DW 0. PH IG 5- AR HT 3( MA E 2. CY 5) MG /3 ML ES 00 12 01 00 30 30 [place] 69 LE Ac TR 55 -1 -0 .0 L- 99 WI ti AD 50 2- 1- 00 MA 94 S ve IO 88 20 20 RT 1 JR L 70 08 09 [address] MG AR IG MA HT TA CY E BL ET #5 91 00 12 01 00 30 10 [place] 44 LE Ac 78 -1 -0 .0 L- 72 WI ti 11 2- 1- 00 MA 90 S ve 40 20 20 RT 0 JR 30 08 [address] AR IG MA HT CY E #5 91 AM 00 12 01 00 30 10 [place] 69 LE Ac OX 78 -1 -0 .0 L- 99 WI ti IC 12 2- 1- 00 MA 94 S ve IL 61 20 20 RT 2 JR LI 33 08 [address] 50 AR IG 0 MA HT MG CY E CA #5 PS 91 UL E PA 68 12 01 00 30 30 [place] 69 No Ac RO 38 -1 -0 .0 L- 99 t ti XE 20 0- 1- 00 MA 94 Av ve TI 00 20 20 RT 0 ai NE 10 08 09 la 6 PH bl HC AR e L MA 40 CY MG #5 91 TA BL ET PA 68 10 12 00 30 30 [place] 69 No Ac RO 38 -0 -1 .0 L- 97 t ti XE 20 7- 8- 00 MA 83 Av ve TI 00 20 20 RT 8 ai NE 10 08 08 la 6 PH bl HC AR e L MA 40 CY MG #5 91 TA BL ET QU 68 09 12 02 30 30 WA 69 LE Ac IN 18 -2 -1 .0 L- 88 WI ti AP 00 6- 8- 00 MA 87 S ve RI 55 20 20 RT 9 JR L 90 08 08 [address] AR IG MG MA HT CY E TA BL #5 ET 91 00 10 12 01 6. 30 [place] 69 LE Ac 00 -2 -1 00 L- 93 WI ti 60 8- 8- 0 MA 10 S ve 26 20 20 RT 7 JR 71 08 [address] AR IG MA HT CY E #5 91 CR 00 10 12 01 30 30 [place] 69 LE Ac ES 31 -2 -1 .0 L- 93 WI ti TO 00 9- 8- 00 MA 24 S ve R 75 20 20 RT 8 JR 20 29 08 [address] MG AR IG MA HT TA CY E BL ET #5 91 AL 00 09 12 02 12 30 [place] 69 LE Ac BU 37 -2 -1 0. L- 88 WI ti TE 80 6- 8- 00 MA 95 S ve RO 57 20 20 0 RT 6 JR L 20 08 08 DIAZ [address] LF AR IG AT MA HT E CY E 4 MG #5 91 TA B IP 00 11 12 00 36 30 PU 19 LE Ac RA 37 -2 -0 0. LM 16 WI ti T- 86 1- 4- 00 O 66 S ve AL 98 20 20 0 DO 7 JR BU 89 08 08 SE T 1 DW 0. PH IG 5- AR HT 3( MA E 2. CY 5) MG /3 ML HY 00 03 12 07 30 [address] [place] [address] 17 -1 -0 .0 L- 63 WI ti OC 22 0- 4- 00 MA 51 S ve HL 08 20 20 RT 0 JR OR 38 08 08 OT [address] HI AR IG AZ MA HT ID CY E E 25 #5 91 MG TA B 00 01 12 05 30 30 [place] 69 LE Ac 09 -0 -0 .0 L- 58 WI ti 31 9- 4- 00 MA 44 S ve 03 20 20 RT 0 JR 90 08 [address] AR IG MA HT CY E #5 91 00 10 12 01 30 30 [place] 69 WI Ac 24 -0 -0 .0 L- 90 NK ti 50 4- 4- 00 MA 04 LE ve 05 20 20 RT 3 81 08 08 DA 1 PH AR D MA L CY #5 91 QU 68 09 11 01 30 30 [place] 69 LE Ac IN 18 -2 -0 .0 L- 88 WI ti AP 00 6- 7- 00 MA 87 S ve RI 55 20 20 RT 9 JR L 90 08 08 [address] AR IG MG MA HT CY E TA BL #5 ET 91 CR 00 10 11 00 30 30 [place] 69 LE Ac ES 31 -2 -0 .0 L- 93 WI ti TO 00 9- 7- 00 MA 24 S ve R 75 20 20 RT 8 JR 20 29 08 [address] MG AR IG MA HT TA CY E BL ET #5 91 00 01 11 04 30 30 WA 69 LE Ac 09 -0 -0 .0 L- 58 WI ti 31 9- 7- 00 MA 44 S ve 03 20 20 RT 0 JR 90 08 [address] AR IG MA HT CY E #5 91 HY 00 03 11 06 30 30 [place] [address] 17 -1 -0 .0 L- 63 WI ti OC 22 0- 7- 00 MA 51 S ve HL 08 20 20 RT 0 JR OR 38 08 08 OT [address] HI AR IG AZ MA HT ID CY E E 25 #5 91 MG TA B AL 00 09 11 01 12 30 [place] 69 LE Ac BU 37 -2 -0 0. L- 88 WI ti TE 80 6- 7- 00 MA 95 S ve RO 57 20 20 0 RT 6 JR L 20 08 08 DIAZ [address] LF AR IG AT MA HT E CY E 4 MG #5 91 TA B 00 10 11 00 6. 3 [place] 69 LE Ac 00 -2 -0 00 L- 93 WI ti 60 8- 7- 0 MA 10 S ve 26 20 20 RT 7 JR 71 08 08 [address] AR IG MA HT CY E #5 91 AZ 37 10 11 00 30 30 WA 88 LE Ac IL 00 -2 -0 .0 L- 13 WI ti OS 00 8- 7- 00 MA 00 S ve EC 45 20 20 RT 8 JR 50 08 08 OT [address] C AR IG 20 MA HT .6 CY E MG #5 91 TA BL ET 00 10 11 00 30 30 [place] 69 WI Ac 24 -0 -0 .0 L- 90 NK ti 50 4- 7- 00 MA 04 LE ve 05 20 20 RT 3 81 08 08 DA 1 PH AR D MA L CY #5 91 DE 00 10 11 00 90 30 [place] 69 No Ac PA 07 -3 -0 .0 L- 93 t ti KO 47 1- 7- 00 MA 63 Av ve TE 12 20 20 RT 4 ai 61 08 08 la ER 3 PH bl AR e 50 MA 0 CY MG #5 TA 91 BL ET PA 54 07 11 00 30 30 [place] 69 No Ac RO 45 -0 -0 .0 L- 93 t ti XE 80 7- 7- 00 MA 62 Av ve TI 98 20 20 RT 6 ai NE 81 08 08 la 0 PH bl HC AR e L MA 30 CY MG #5 91 TA BL ET 00 08 11 00 60 30 [place] 69 No Ac 09 -0 -0 .0 L- 93 t ti 37 7- 7- 00 MA 62 Av ve 24 20 20 RT 8 ai 10 08 08 la 6 PH bl AR e MA CY #5 91 PA 54 09 10 00 30 30 [place] 69 No Ac RO 45 -0 -0 .0 L- 89 t ti XE 80 9- 9- 00 MA 56 Av ve TI 98 20 20 RT 6 ai NE 81 08 08 la 0 PH bl HC AR e L MA 30 CY MG #5 91 TA BL ET 00 09 10 00 30 30 [place] 69 No Ac 09 -0 -0 .0 L- 89 t ti 31 9- 9- 00 MA 56 Av ve 03 20 20 RT 8 ai 90 08 08 la 1 PH bl AR e MA CY #5 91 60 09 10 00 60 30 [place] 69 No Ac 50 -0 -0 .0 L- 89 t ti 53 9- 9- 00 MA 56 Av ve 06 20 20 RT 5 ai 70 08 08 la 1 PH bl AR e MA CY #5 91 00 09 10 00 30 30 [place] 69 No Ac 09 -0 -0 .0 L- 89 t ti 37 9- 9- 00 MA 56 Av ve 24 20 20 RT 7 ai 10 08 08 la 6 PH bl AR e MA CY #5 91 QU 68 09 10 00 30 30 WA 69 LE Ac IN 18 -2 -0 .0 L- 88 WI ti AP 00 6 00 MA 87 S ve RI 55 20 20 RT 9 JR L 90 08 08 [address] AR IG MG MA HT CY E TA BL #5 ET 91 00 03 10 01 25 6 [place] 69 LE Ac 40 -1 -0 .0 L- 63 WI ti 62 0- 9- 00 MA 51 S ve 04 20 20 RT 6 JR 10 08 [address] AR IG MA HT CY E #5 91 AL 00 09 10 00 12 30 [place] 69 LE Ac BU 37 -2 -0 0. L- 88 WI ti TE 80 6- 9- 00 MA 95 S ve RO 57 20 20 0 RT 6 JR L 20 08 08 DIAZ [address] LF AR IG AT MA HT E CY E 4 MG #5 91 TA B 00 01 09 02 6. 3 [place] 69 LE Ac 00 -3 -1 00 L- 58 WI ti 60 0- 1- 0 MA 11 S ve 26 20 20 RT 3 JR 71 08 [address] AR IG MA HT CY E #5 91 LI 00 04 09 04 30 30 [place] 69 LE Ac PI 07 -1 -1 .0 L- 68 WI ti TO 10 8- 1- 00 MA 71 S ve R 15 20 20 RT 5 JR 20 62 08 [address] MG AR IG MA HT TA CY E BL ET #5 91 HY 00 03 09 05 30 30 [place] [address] 17 -1 -1 .0 L- 63 WI ti OC 22 0- 1- 00 MA 51 S ve HL 08 20 20 RT 0 JR OR 38 08 08 OT [address] HI AR IG AZ MA HT ID CY E E 25 #5 91 MG TA B AL 00 06 09 02 12 30 [place] 69 WI Ac BU 37 -0 -1 0. L- 74 NK ti TE 80 2- 1- 00 MA 23 LE ve RO 57 20 20 0 RT 2 L 20 08 08 DA DIAZ 1 PH LF AR D AT MA L E CY 4 MG #5 91 TA B AZ 37 06 09 02 30 30 [place] 88 WI Ac IL 00 -0 -1 .0 L- 12 NK ti OS 00 2- 1- 00 MA 30 LE ve EC 45 20 20 RT 6 50 08 08 DA OT 4 PH C AR D 20 MA L .6 CY MG #5 91 TA BL ET 00 06 09 02 30 30 [place] 69 WI Ac 24 -0 -1 .0 L- 74 NK ti 50 2- 1- 00 MA 23 LE ve 05 20 20 RT 0 81 08 08 DA 1 PH AR D MA L CY #5 91 60 08 09 00 90 30 [place] 69 GH Ac 50 -2 -1 .0 L- 85 AN ti 53 9- 1- 00 MA 13 TA ve 06 20 20 RT 7 70 08 08 RA 1 PH ME AR SH MA CY #5 91 PA 54 02 09 01 30 30 [place] 69 GH Ac RO 45 -2 -1 .0 L- 62 AN ti XE 80 0- 1- 00 MA 27 TA ve TI 98 20 20 RT 2 NE 91 08 08 RA 0 PH ME HC AR SH L MA 20 CY MG #5 91 TA BL ET 00 07 09 00 30 30 [place] 69 No Ac 09 -0 -1 .0 L- 85 t ti 31 8- 1- 00 MA 13 Av ve 03 20 20 RT 9 ai 90 08 08 la 1 PH bl AR e MA CY #5 91 00 07 09 00 60 30 [place] 69 No Ac 09 -0 -1 .0 L- 85 t ti 37 8- 1- 00 MA 13 Av ve 24 20 20 RT 8 ai 10 08 08 la 6 PH bl AR e MA CY #5 91 00 01 08 04 30 30 [place] 69 LE Ac 09 -0 -2 .0 L- 58 WI ti 31 9- 8- 00 MA 44 S ve 03 20 20 RT 0 JR 90 08 [address] AR IG MA HT CY E #5 91 IP 00 08 08 08 36 30 PU 16 LE Ac RA 37 -1 -1 0. LM 32 WI ti T- 86 5- 4- 00 O 94 S ve AL 98 20 20 0 DO 0 JR BU 89 07 08 SE T 1 DW 0. PH IG 5- AR HT 3( MA E 2. CY 5) MG /3 ML LI 00 04 08 03 30 30 [place] 69 LE Ac PI 07 -1 -1 .0 L- 68 WI ti TO 10 8- 4- 00 MA 71 S ve R 15 20 20 RT 5 JR 20 62 08 [address] MG AR IG MA HT TA CY E BL ET #5 91 HY 00 03 08 04 30 30 [place] [address] 17 -1 -1 .0 L- 63 WI ti OC 22 0- 4- 00 MA 51 S ve HL 08 20 20 RT 0 JR OR 38 08 08 OT [address] HI AR IG AZ MA HT ID CY E E 25 #5 91 MG TA B QU 68 08 08 00 30 30 WA 69 LE Ac IN 18 -0 -1 .0 L- 81 WI ti AP 00 1- 4- 00 MA 53 S ve RI 55 20 20 RT 6 JR L 90 08 08 [address] AR IG MG MA HT CY E TA BL #5 ET 91 00 06 08 01 30 30 [place] 69 WI Ac 24 -0 -1 .0 L- 74 NK ti 50 2- 4- 00 MA 23 LE ve 05 20 20 RT 0 81 08 08 DA 1 PH AR D MA L CY #5 91 AL 00 06 08 01 12 30 [place] 69 WI Ac BU 37 -0 -1 0. L- 74 NK ti TE 80 2- 4- 00 MA 23 LE ve RO 57 20 20 0 RT 2 L 20 08 08 DA DIAZ 1 PH LF AR D AT MA L E CY 4 MG #5 91 TA B AZ 37 06 08 30 30 [place] 88 WI Ac IL 00 -0 -1 .0 L- 12 NK ti OS 00 2- 4- 00 MA 30 LE ve EC 45 20 20 RT 6 50 08 08 DA OT 4 PH C AR D 20 MA L .6 CY MG #5 91 TA BL ET DE 00 07 08 00 90 30 [place] 69 No Ac PA 07 -1 -1 .0 L- 80 t ti KO 47 0- 4- 00 MA 43 Av ve TE 12 20 20 RT 0 ai 61 08 08 la ER 3 PH bl AR e 50 MA 0 CY MG #5 TA 91 BL ET PA 54 06 08 00 30 30 [place] 69 No Ac RO 45 -1 -1 .0 L- 80 t ti XE 80 0- 4- 00 MA 43 Av ve TI 98 20 20 RT 7 ai NE 91 08 08 la 0 PH bl HC AR e L MA 20 CY MG #5 91 TA BL ET 00 06 08 00 60 30 [place] 69 No Ac 09 -1 -1 .0 L- 80 t ti 37 0- 4- 00 MA 43 Av ve 24 20 20 RT 1 ai 10 08 08 la 6 PH bl AR e MA CY #5 91 PA 54 06 08 00 30 30 [place] 69 No Ac RO 45 -1 -0 .0 L- 80 t ti XE 80 0- 1- 00 MA 43 Av ve TI 98 20 20 RT 7 ai NE 91 08 08 la 0 PH bl HC AR e L MA 20 CY MG #5 91 TA BL ET DE 00 07 08 00 90 30 [place] 69 No Ac PA 07 -1 -0 .0 L- 80 t ti KO 47 0- 1- 00 MA 43 Av ve TE 12 20 20 RT 0 ai 61 08 08 la ER 3 PH bl AR e 50 MA 0 CY MG #5 TA 91 BL ET 00 06 08 00 60 30 [place] 69 No Ac 09 -1 -0 .0 L- 80 t ti 37 0- 1- 00 MA 43 Av ve 24 20 20 RT 1 ai 10 08 08 la 6 PH bl AR e MA CY #5 91 VE 00 04 08 01 18 25 WA 69 LE Ac NT 17 -2 -0 .0 L- 69 WI ti OL 30 9- 1- 00 MA 95 S ve IN 68 20 20 RT 0 JR 22 08 [address] A AR IG 90 MA HT CY E MC G #5 IN 91 SKAGGS LE R 00 01 08 03 30 30 WA 69 LE Ac 09 -0 -0 .0 L- 58 WI ti 31 9- 1- 00 MA 44 S ve 03 20 20 RT 0 JR 90 08 [address] AR IG MA HT CY E #5 91 IP 00 08 07 07 36 30 PU 16 LE Ac RA 37 -1 -1 0. LM 32 WI ti T- 86 5- 7- 00 O 94 S ve AL 98 20 20 0 DO 0 JR BU 89 07 08 SE T 1 DW 0. PH IG 5- AR HT 3( MA E 2. CY 5) MG /3 ML QU 68 10 07 05 30 30 WA 69 LE Ac IN 18 -1 -1 .0 L- 44 WI ti AP 00 3- 7- 00 MA 92 S ve RI 55 20 20 RT 0 JR L 90 07 08 [address] AR IG MG MA HT CY E TA BL #5 ET 91 HY 00 03 07 03 30 30 [place] [address] 17 -1 -1 .0 L- 63 WI ti OC 22 0- 7- 00 MA 51 S ve HL 08 20 20 RT 0 JR OR 38 08 08 OT [address] HI AR IG AZ MA HT ID CY E E 25 #5 91 MG TA B LI 00 04 07 02 30 30 WA 69 LE Ac PI 07 -1 -1 .0 L- 68 WI ti TO 10 8- 7- 00 MA 71 S ve R 15 20 20 RT 5 JR 20 62 08 08 [address] MG AR IG MA HT TA CY E BL ET #5 91 00 06 07 00 30 30 WA 69 WI Ac 24 -0 -0 .0 L- 74 NK ti 50 2- 3- 00 MA 23 LE ve 05 20 20 RT 0 81 08 08 DA 1 PH AR D MA L CY #5 91 AL 00 06 07 00 12 30 [place] 69 WI Ac BU 37 -0 -0 0. L- 74 NK ti TE 80 2- 3- 00 MA 23 LE ve RO 57 20 20 0 RT 2 L 20 08 08 DA DIAZ 1 PH LF AR D AT MA L E CY 4 MG #5 91 TA B AZ 37 06 07 00 30 30 WA 88 WI Ac IL 00 -0 -0 .0 L- 12 NK ti OS 00 2- 3- 00 MA 30 LE ve EC 45 20 20 RT 6 50 08 08 DA OT 4 PH C AR D 20 MA L .6 CY MG #5 91 TA BL ET PA 60 05 07 00 30 30 WA 69 No Ac RO 50 -0 -0 .0 L- 71 t ti XE 50 7- 3- 00 MA 12 Av ve TI 08 20 20 RT 9 ai NE 30 08 08 la 1 PH bl HC AR e L MA 20 CY MG #5 91 TA BL ET RI 50 05 07 00 60 30 WA 69 No Ac SP 45 -0 -0 .0 L- 71 t ti ER 80 7- 3- 00 MA 12 Av ve DA 32 20 20 RT 8 ai L 00 08 08 la 2 6 PH bl MG AR e MA TA CY BL ET #5 91 DE 00 05 07 00 90 30 WA 69 No Ac PA 07 -0 -0 .0 L- 71 t ti KO 47 7- 3- 00 MA 12 Av ve TE 12 20 20 RT 7 ai 61 08 08 la ER 3 PH bl AR e 50 MA 0 CY MG #5 TA 91 BL ET 49 08 06 06 36 30 PU 16 No Ac 50 -1 -0 0. LM 32 t ti 20 5- 5- 00 O 94 Av ve 67 20 20 0 DO 0 ai 26 07 08 SE la 0 bl PH e AR MA CY 00 04 06 00 30 30 WA 69 No Ac 09 -0 -0 .0 L- 69 t ti 31 8- 5- 00 MA 96 Av ve 03 20 20 RT 2 ai 90 08 08 la 1 PH bl AR e MA CY #5 91 SE 00 02 06 01 60 30 WA 69 No Ac RO 31 -2 -0 .0 L- 62 t ti QU 00 0- 5- 00 MA 27 Av ve EL 27 20 20 RT 1 ai 21 08 08 la 20 0 PH bl 0 AR e MG MA CY TA BL #5 ET 91 LI 00 04 06 01 30 30 WA 69 LE Ac PI 07 -1 -0 .0 L- 68 WI ti TO 10 8- 5- 00 MA 71 S ve R 15 20 20 RT 5 JR 20 62 08 [address] MG AR IG MA HT TA CY E BL ET #5 91 QU 68 10 06 04 30 30 WA 69 LE Ac IN 18 -1 -0 .0 L- 44 WI ti AP 00 3- 5- 00 MA 92 S ve RI 55 20 20 RT 0 JR L 90 07 08 [address] AR IG MG MA HT CY E TA BL #5 ET 91 00 05 06 00 30 30 WA 69 LE Ac 24 -3 -0 .0 L- 73 WI ti 50 0- 5- 00 MA 96 S ve 05 20 20 RT 1 JR 81 [address] AR IG MA HT CY E #5 91 HY 00 03 06 02 30 30 [place] [address] 17 -1 -0 .0 L- 63 WI ti OC 22 0- 5- 00 MA 51 S ve HL 08 20 20 RT 0 JR OR 38 08 08 OT [address] HI AR IG AZ MA HT ID CY E E 25 #5 91 MG TA B AZ 37 05 06 00 30 30 WA 88 LE Ac IL 00 -3 -0 .0 L- 12 WI ti OS 00 0- 5- 00 MA 29 S ve EC 45 20 20 RT 5 JR 50 08 08 [address] C AR IG 20 MA HT .6 CY E MG #5 91 TA BL ET AL 00 05 06 00 12 30 WA 69 LE Ac BU 37 -3 -0 0. L- 73 WI ti TE 80 0- 5- 00 MA 96 S ve RO 57 20 20 0 RT 2 JR L 20 08 08 DIAZ [address] LF AR IG AT MA HT E CY E 4 MG #5 91 TA B 00 05 05 02 30 30 [place] 69 No Ac 24 -2 -0 .0 L- 30 t ti 50 3- 8- 00 MA 72 Av ve 05 20 20 RT 8 ai 81 07 08 la 1 PH bl AR e MA CY #5 91 QU 68 10 05 03 30 30 [place] 69 No Ac IN 18 -1 -0 .0 L- 44 t ti AP 00 3- 8- 00 MA 92 Av ve RI 55 20 20 RT 0 ai L 90 07 08 la 40 9 PH bl AR e MG MA CY TA BL #5 ET 91 63 04 05 00 20 10 WA 69 No Ac 30 -2 -0 .0 L- 69 t ti 40 9- 8- 00 MA 94 Av ve 75 20 20 RT 9 ai 12 08 08 la 0 PH bl AR e MA CY #5 91 LI 00 04 05 00 30 30 [place] 69 No Ac PI 07 -1 -0 .0 L- 68 t ti TO 10 8- 8- 00 MA 71 Av ve R 15 20 20 RT 5 ai 20 62 08 08 la 3 PH bl MG AR e MA TA CY BL ET #5 91 ME 00 04 05 00 21 6 69 No Ac TH 60 -2 -0 .0 L- 69 t ti YL 34 9 8- 00 MA 95 Av ve AZ 59 20 20 RT 1 ai ED 31 08 08 la NI 5 PH bl SO AR e LO MA NE CY 4 #5 MG 91 DO SE PK VE 00 04 05 00 18 25 69 No Ac NT 17 -2 -0 .0 L- 69 t ti OL 30 9 8- 00 MA 95 Av ve IN 68 20 20 RT 0 ai 22 08 08 la HF 0 PH bl A AR e 90 MA CY MC G #5 IN 91 SKAGGS LE R DE 00 04 05 00 90 30 69 No Ac PA 07 -0 -0 .0 L- 69 t ti KO 47 8- 8- 00 MA 96 Av ve TE 12 20 20 RT 0 ai 61 08 08 la ER 3 PH bl AR e 50 MA 0 CY MG #5 TA 91 BL ET 49 08 05 05 36 30 PU 16 No Ac 50 -1 -0 0. LM 32 t ti 20 5- 8- 00 O 94 Av ve 67 20 20 0 DO 0 ai 26 07 08 SE la 0 bl PH e AR MA CY 00 01 05 02 30 30 [place] 69 No Ac 09 -0 -0 .0 L- 58 t ti 31 9- 8- 00 MA 44 Av ve 03 20 20 RT 0 ai 90 08 08 la 1 PH bl AR e MA CY #5 91 PA 54 04 05 00 30 30 [place] 69 No Ac RO 45 -0 -0 .0 L- 69 t ti XE 80 8- 8- 00 MA 96 Av ve TI 98 20 20 RT 1 ai NE 91 08 08 la 0 PH bl HC AR e L MA 20 CY MG #5 91 TA BL ET RI 50 04 05 00 60 30 WA 69 No Ac SP 45 -0 -0 .0 L- 69 t ti ER 80 8- 8- 00 MA 96 Av ve DA 32 20 20 RT 3 ai L 00 08 08 la 2 6 PH bl MG AR e MA TA CY BL ET #5 91 HY 00 03 05 30 30 [place] [address] 17 -1 -0 .0 L- 63 t ti OC 22 0- 8- 00 MA 51 Av ve HL 08 20 20 RT 0 ai OR 38 08 08 la OT 0 PH bl HI AR e AZ MA ID CY E 25 #5 91 MG TA B AZ 37 10 04 30 30 [place] 88 No Ac IL 00 -0 -2 .0 L- 11 t ti OS 00 1- 4- 00 MA 24 Av ve EC 45 20 20 RT 9 ai 50 07 08 la OT 4 PH bl C AR e 20 MA .6 CY MG #5 91 TA BL ET AL 00 09 04 03 12 30 [place] 69 No Ac BU 37 -1 -2 0. L- 41 t ti TE 80 4- 4- 00 MA 65 Av ve RO 57 20 20 0 RT 3 ai L 20 07 08 la DIAZ 1 PH bl LF AR e AT MA E CY 4 MG #5 91 TA B 00 05 04 30 [place] 69 No Ac 24 -2 -2 .0 L- 30 t ti 50 3- 4- 00 MA 72 Av ve 05 20 20 RT 8 ai 81 07 08 la 1 PH bl AR e MA CY #5 91 LI 00 04 04 30 30 [place] 69 No Ac PI 07 -1 -2 .0 L- 68 t ti TO 10 8- 4- 00 MA 71 Av ve R 15 20 20 RT 5 ai 20 62 08 08 la 3 PH bl MG AR e MA TA CY BL ET #5 91 00 01 04 01 6. 3 [place] 69 No Ac 00 -3 -2 00 L- 58 t ti 60 0- 4- 0 MA 11 Av ve 26 20 20 RT 3 ai 71 08 08 la 2 PH bl AR e MA CY #5 91 HY 00 03 04 30 30 [place] [address] 17 -1 -2 .0 L- 63 t ti OC 22 0- 4- 00 MA 51 Av ve HL 08 20 20 RT 0 ai OR 38 08 08 la OT 0 PH bl HI AR e AZ MA ID CY E 25 #5 91 MG TA B 00 05 04 30 30 [place] 69 No Ac 24 -2 -1 .0 L- 30 t ti 50 3- 7- 00 MA 72 Av ve 05 20 20 RT 8 ai 81 07 08 la 1 PH bl AR e MA CY #5 91 AZ 37 10 04 04 30 30 WA 88 No Ac IL 00 -0 -1 .0 L- 11 t ti OS 00 1- 7- 00 MA 24 Av ve EC 45 20 20 RT 9 ai 50 07 08 la OT 4 PH bl C AR e 20 MA .6 CY MG #5 91 TA BL ET HY 00 03 04 00 30 30 [place] [address] 17 -1 -1 .0 L- 63 t ti OC 22 0- 7- 00 MA 51 Av ve HL 08 20 20 RT 0 ai OR 38 08 08 la OT 0 PH bl HI AR e AZ MA ID CY E 25 #5 91 MG TA B 00 03 04 00 25 6 [place] 69 No Ac 40 -1 -1 .0 L- 63 t ti 62 0- 7- 00 MA 51 Av ve 04 20 20 RT 6 ai 10 08 08 la 1 PH bl AR e MA CY #5 91 LI 00 04 04 08 30 30 [place] 69 No Ac PI 07 -0 -1 .0 L- 24 t ti TO 10 5- 7- 00 MA 74 Av ve R 15 20 20 RT 7 ai 20 62 07 08 la 3 PH bl MG AR e MA TA CY BL ET #5 91 49 08 04 04 36 30 PU 16 No Ac 50 -1 -1 0. LM 32 t ti 20 5- 7- 00 O 94 Av ve 67 20 20 0 DO 0 ai 26 07 08 SE la 0 bl PH e AR MA CY AL 00 09 04 02 12 30 [place] 69 No Ac BU 37 -1 -1 0. L- 41 t ti TE 80 4- 7- 00 MA 65 Av ve RO 57 20 20 0 RT 3 ai L 20 07 08 la DIAZ 1 PH bl LF AR e AT MA E CY 4 MG #5 91 TA B 00 01 04 30 30 [place] 69 No Ac 09 -0 -1 .0 L- 58 t ti 31 9- 7- 00 MA 44 Av ve 03 20 20 RT 0 ai 90 08 08 la 1 PH bl AR e MA CY #5 91 QU 68 10 04 30 30 WA 69 No Ac IN 18 -1 -1 .0 L- 44 t ti AP 00 3- 0- 00 MA 92 Av ve RI 55 20 20 RT 0 ai L 90 07 08 la 40 9 PH bl AR e MG MA CY TA BL #5 ET 91 00 04 04 00 30 30 [place] 69 No Ac 09 -0 -1 .0 L- 66 t ti 31 1- 0- 00 MA 41 Av ve 03 20 20 RT 7 ai 90 08 08 la 1 PH bl AR e MA CY #5 91 PA 60 03 04 00 30 30 WA 69 No Ac RO 50 -1 -1 .0 L- 66 t ti XE 50 1- 0- 00 MA 42 Av ve TI 08 20 20 RT 0 ai NE 30 08 08 la 1 PH bl HC AR e L MA 20 CY MG #5 91 TA BL ET DE 00 03 04 00 90 30 [place] 69 No Ac PA 07 -1 -1 .0 L- 66 t ti KO 47 1- 0- 00 MA 41 Av ve TE 12 20 20 RT 8 ai 61 08 08 la ER 3 PH bl AR e 50 MA 0 CY MG #5 TA 91 BL ET RI 50 03 04 00 60 30 WA 69 No Ac SP 45 -1 -1 .0 L- 66 t ti ER 80 1- 0- 00 MA 41 Av ve DA 32 20 20 RT 9 ai L 00 08 08 la 2 6 PH bl MG AR e MA TA CY BL ET #5 91 00 08 04 01 25 6 WA 69 No Ac 40 -0 -0 .0 L- 36 t ti 62 3- 7- 00 MA 93 Av ve 04 20 20 RT 3 ai 10 07 08 la 1 PH bl AR e MA CY #5 91 PA 60 02 04 00 30 30 WA 69 No Ac RO 50 -2 -0 .0 L- 62 t ti XE 50 0- 7- 00 MA 27 Av ve TI 08 20 20 RT 2 ai NE 30 08 08 la 1 PH bl HC AR e L MA 20 CY MG #5 91 TA BL ET RI 50 02 04 00 90 30 WA 69 No Ac SP 45 -2 -0 .0 L- 62 t ti ER 80 8- 7- 00 MA 27 Av ve DA 30 20 20 RT 5 ai L 00 08 08 la 1 6 PH bl MG AR e MA TA CY BL ET #5 91 SE 00 02 04 00 60 30 WA 69 No Ac RO 31 -2 -0 .0 L- 62 t ti QU 00 0- 7- 00 MA 27 Av ve EL 27 20 20 RT 1 ai 21 08 08 la 20 0 PH bl 0 AR e MG MA CY TA BL #5 ET 91 00 01 03 00 30 30 WA 69 No Ac 09 -0 -2 .0 L- 58 t ti 31 9- 6- 00 MA 44 Av ve 03 20 20 RT 0 ai 90 08 08 la 1 PH bl AR e MA CY #5 91 TH 00 01 03 00 30 30 WA 69 No Ac IO 37 -1 -2 .0 L- 58 t ti RI 80 4- 6- 00 MA 43 Av ve DA 61 20 20 RT 4 ai ZI 60 08 08 la NE 1 PH bl AR e 50 MA CY MG #5 TA 91 BL ET 49 08 03 03 36 30 PU 16 No Ac 50 -1 -2 0. LM 32 t ti 20 5- 6- 00 O 94 Av ve 67 20 20 0 DO 0 ai 26 07 08 SE la 0 bl PH e AR MA CY HY 00 05 03 05 30 30 [place] [address] 17 -0 -2 .0 L- 27 t ti OC 22 1- 6- 00 MA 50 Av ve HL 08 20 20 RT 6 ai OR 38 07 08 la OT 0 PH bl HI AR e AZ MA ID CY E 25 #5 91 MG TA B 00 01 03 00 6. 3 [place] 69 No Ac 00 -3 -2 00 L- 58 t ti 60 0- 6- 0 MA 11 Av ve 26 20 20 RT 3 ai 71 08 08 la 2 PH bl AR e MA CY #5 91 TR 50 01 03 00 30 30 [place] 69 No Ac AZ 11 -1 -2 .0 L- 58 t ti OD 10 4- 6- 00 MA 48 Av ve ON 43 20 20 RT 6 ai E 40 08 08 la 10 1 PH bl 0 AR e MG MA CY TA BL #5 ET 91 AZ 37 10 03 30 30 [place] 88 No Ac IL 00 -0 -2 .0 L- 11 t ti OS 00 1- 6- 00 MA 24 Av ve EC 45 20 20 RT 9 ai 50 07 08 la OT 4 PH bl C AR e 20 MA .6 CY MG #5 91 TA BL ET 00 05 03 00 30 30 [place] 69 No Ac 24 -2 -2 .0 L- 30 t ti 50 3- 6- 00 MA 72 Av ve 05 20 20 RT 8 ai 81 07 08 la 1 PH bl AR e MA CY #5 91 DE 00 02 03 00 90 30 [place] 69 No Ac PA 07 -0 -2 .0 L- 58 t ti KO 47 1- 6- 00 MA 44 Av ve TE 12 20 20 RT 1 ai 61 08 08 la ER 3 PH bl AR e 50 MA 0 CY MG #5 TA 91 BL ET AL 00 09 03 01 12 30 [place] 69 No Ac BU 37 -1 -2 0. L- 41 t ti TE 80 4- 6- 00 MA 65 Av ve RO 57 20 20 0 RT 3 ai L 20 07 08 la DIAZ 1 PH bl LF AR e AT MA E CY 4 MG #5 91 TA B QU 68 10 03 01 30 30 [place] 69 No Ac IN 18 -1 -2 .0 L- 44 t ti AP 00 3- 6- 00 MA 92 Av ve RI 55 20 20 RT 0 ai L 90 07 08 la 40 9 PH bl AR e MG MA CY TA BL #5 ET 91 PA 68 02 03 00 30 30 WA 69 No Ac RO 38 -0 -2 .0 L- 58 t ti XE 20 1- 6- 00 MA 48 Av ve TI 00 20 20 RT 5 ai NE 10 08 08 la 6 PH bl HC AR e L MA 40 CY MG #5 91 TA BL ET 49 01 03 00 60 30 [place] 69 No Ac 88 -1 -2 .0 L- 58 t ti 40 4- 6- 00 MA 43 Av ve 16 20 20 RT 5 ai 50 08 08 la 1 PH bl AR e MA CY #5 91 LI 00 04 03 07 30 30 [place] 69 No Ac PI 07 -0 -2 .0 L- 24 t ti TO 10 5- 6- 00 MA 74 Av ve R 15 20 20 RT 7 ai 20 62 07 08 la 3 PH bl MG AR e MA TA CY BL ET #5 91 49 08 03 02 36 30 PU 16 No Ac 50 -1 -2 0. LM 32 t ti 20 5- 4- 00 O 94 Av ve 67 20 20 0 DO 0 ai 26 07 08 SE la 0 bl PH e AR MA CY Immunization Name Date Rout CVX Reac Dose Comm Prov Is Faci e tion ent ider Refu lity Give sed n IIV4 11-0 158 [facility] No [facility] 9-20 O O VACC 16 DIST DIST RICT RICT SPLI T HLTH HLTH VIRU S DEPT DEPT 0.5 CONNER CONNER ML DOS FOR IM USE IIV4 10-0 150 ROBE No ROBE 2-20 RTSO RTSO VACC 13 N CO N CO PRES HEAL HEAL RV TH TH FREE DEPA DEPA 0.5 RTME RTME ML FOR IM USE IIV3 10-1 141 RAJ No RAJ 4-20 DONNY DONNY VACC 11 CO CO INE HEAL HEAL SPLI TH TH T CENT CENT VIRU ER ER S 0.5 ML DOSA GE IM USE IIV3 11-1 141 RAJ No RAJ 6-20 DONNY DONNY VACC 10 CO CO INE HEAL HEAL SPLI TH TH T CENT CENT VIRU ER ER S 0.5 ML DOSA GE IM USE IIV3 12-0 141 ROBE No DHS/ 5-20 RTSO CO VACC 08 N CO HEAL INE TH SPLI HEAL CENT T TH RAL VIRU DEPA BANK S RTME 0.5 NT ACCT ML DOSA GE IM USE Procedures Procedure DOS Code Location Performer Comment NONEMERG A0120 FEDERATED FEDERATED TRNSPRT: 7 MINI-BUS TRANSPORT TRANSPORT MTN ATION SER ATION SER AREA/OTH SYS SBSQ 25456 [facility] NURSING 7 FACILITY CARE/DAY E/M STABLE 10 MIN DRUG 68477 COMBINED COMBINED ASSAY 7 PHYSICIAN PHYSICIAN VALPROIC S LA S LA DIPROPYLA CETIC ACID TOTAL BLOOD 60991 COMBINED COMBINED COUNT 7 PHYSICIAN PHYSICIAN COMPLETE S LA S LA AUTO&AUTO DIFRNTL WBC COMPREHEN 70555 COMBINED COMBINED SIVE 7 PHYSICIAN PHYSICIAN METABOLIC S LA S LA PANEL 25 63026 COMBINED COMBINED HYDROXY 7 PHYSICIAN PHYSICIAN INCLUDES S LA S LA FRACTIONS IF PERFORMED SBSQ 75904 [facility] 7 FACILITY CARE/DAY E/M STABLE 10 MIN INITIAL 20163 [facility] 7 FACILITY CARE/DAY 25 MINUTES E/M 15894 [facility] 7 NURSING FACILITY ASSESS STABLE 30 MIN SBSQ 74938 [facility] 6 FACILITY CARE/DAY E/M STABLE 10 MIN SBSQ 84515 [facility] 6 CHELSI CHELSI FACILITY CARE/DAY E/M STABLE 10 MIN IIV4 VACC 49925 [facility] VIRUS 0.5 HLTH DEPT HLTH DEPT ML DOS CONNER CONNER FOR IM USE SBSQ 82514 [facility] 6 CHELSI CHESLI FACILITY CARE/DAY E/M STABLE 10 MIN INITIAL 00204 [facility] 6 FACILITY CARE/DAY 25 MINUTES NONEMERG A0120 FEDERATED FEDERATED TRNSPRT: 6 [facility] TRANSPORT TRANSPORT MTN ATION SER ATION SER AREA/OT SYS HOSPITAL G0378 [facility] OBSERVATI 6 [facility] ON INC INC SERVICE PER HOUR COMPREHEN 54562 [facility] SIVE 6 [facility] METABOLIC INC INC PANEL COLLECTIO 68168 [facility] N VENOUS 6 [facility] BLOOD INC INC VENIPUNCT URE BLOOD 54118 [facility] COUNT 6 [facility] COMPLETE INC INC AUTO&AUTO DIFRNTL WBC PRESSURIZ 78463 [facility] ED/NONPRE 6 [facility] SSURIZED INC INC INHALATIO N TREATMENT NONINVASI 98446 [facility] VE 6 [facility] EAR/PULSE INC INC OXIMETRY SINGLE DETER PRESSURIZ 92071 [facility] ED/NONPRE 6 [facility] SSURIZED INC INC INHALATIO N TREATMENT ANES 13036 [facility] FEEBACK INTRAPERI 6 ANESTH REE TONEAL OF THE UPPER BLUE ABDOMEN W/LAPS NOS INJECTION J0131 [facility] ACETAMINO INC INC PHEN 10 MG INJECTION J2710 [facility] NEOSTIGMI INC INC NE METHYLSUL FATE UP TO 0.5 MG LEVEL III 84976 [facility] SURG 6 [facility] GROSS&GEORGINA ROSCOPIC EXAM INJECTION J2405 [facility] ONDANSETR INC INC ON HCL PER 1 MG TX PROC G0238 [facility] IMPRV 6 [facility] RESP INC INC FUNCT NOT G0237 [facility] G0378 [facility] OBSERVATI 6 [facility] ON INC INC SERVICE PER HOUR LAPAROSCO 24353 [facility] PY SURG 6 [facility] CHOLECYST INC INC ECTOMY NONEMERG A0120 FEDERATED FEDERATED TRNSPRT: 6 MINI-BUS TRANSPORT [facility] NONEMERG A0120 FEDERATED FEDERATED TRNSPRT: 6 MINI-BUS TRANSPORT TRANSPORT MTN ATION SER ATION SER AREA/OTH SYS NONEMERG A0120 FEDERATED FEDERATED TRNSPRT: 6 MINI-BUS TRANSPORT TRANSPORT MTN ATION SER ATION SER AREA/OTH SYS ECG 65734 [facility] ROUTINE 6 [facility] ECG INC INC W/LEAST 12 LDS TRCG ONLY W/O I&R ECG 34061 TAYLOR VAZQUEZ JR ROUTINE 6 DWI DWI ECG W/LEAST 12 LDS I&R ONLY NONEMERG A0120 FEDERATED FEDERATED TRNSPRT: 6 MINI-BUS TRANSPORT TRANSPORT MTN ATION SER ATION SER AREA/OTH SYS LIPID 45216 COMBINED COMBINED PANEL 6 PHYSICIAN PHYSICIAN S LA S LA HEPATOBIL 52334 [facility] KONG ALL IARY SYST 6 MEDICAL IMAGING IMAGING INCLUDING ASS GALLBLADD ER COMPREHEN 45151 COMBINED COMBINED SIVE 6 PHYSICIAN PHYSICIAN METABOLIC S LA S LA PANEL BLOOD 50970 COMBINED COMBINED COUNT 6 PHYSICIAN PHYSICIAN COMPLETE S LA S LA AUTO&AUTO DIFRNTL WBC HEMOGLOBI 99257 COMBINED COMBINED N 6 PHYSICIAN PHYSICIAN GLYCOSYLA S LA S LA KASEY A1C IADNA-DNA 44706 [facility] /RNA GI 6 [facility] PTHGN INC INC MULTIPLEX PROBE TQ 12-25 NONEMERG A0120 FEDERATED FEDERATED TRNSPRT: 6 [facility]-BUS TRANSPORT TRANSPORT MTN ATION SER ATION SER AREA/OTH SYS NONEMERG A0120 FEDERATED FEDERATED TRNSPRT: 6 MINI-BUS TRANSPORT TRANSPORT MTN ATION [place] AREA/[place] [address] [facility]ONG ALL ABDOMINAL 6 MEDICAL REAL IMAGING TIME ASS W/IMAGE LIMITED THER 01003 [facility] PROPH/DX 6 [facility] NJX IV INC INC PUSH SINGLE/1S T SBST/DRUG THERAPEUT 69838 [facility] IC 6 [facility] INJECTION INC INC IV PUSH EACH NEW DRUG COMPREHEN 62807 [facility] SIVE 6 [facility] [address] [facility] LIPASE 6 [facility] INC INC BLOOD 87169 [facility] COUNT 6 [facility] COMPLETE INC INC AUTO&AUTO DIFRNTL WBC GROUND A0425 [facility] MILEAGE 6 AMBULANCE AMBULANCE PER SERVICE SERVICE STATUTE MILE AMBULANCE A0429 [facility] SERVICE 6 AMBULANCE AMBULANCE BLS SERVICE SERVICE EMERGENCY TRANSPORT PARING/CU 94240 CIPRIANO GEES TTING 6 JAM JAM BENIGN HYPERKERA TOTIC LESION 2-4 TRIMMING 14409 BRAUDIS BRAUDIS NONDYSTRO 6 JAM JAM PHIC NAILS ANY NUMBER DEBRIDEME 60240 BRAUDIS BRAUDIS NT NAIL 6 JAM JAM ANY METHOD 1-5 NONEMERG A0120 FEDERATED FEDERATED TRNSPRT: 6 MINI-BUS TRANSPORT TRANSPORT MTN ATION SER ATION [place] AREA/[place] [address] [facility] LIPASE 6 [facility] INC INC CREATINE 22926 [facility] KINASE 6 [facility] TOTAL INC INC COMPREHEN 84756 [facility] SIVE 6 [facility] METABOLIC INC INC PANEL BLOOD 45664 [facility] COUNT 6 [facility] COMPLETE INC INC AUTO&[place] [address] [facility] TROPONIN [address] [facility] [place] [address] [facility] AMYLASE 6 [facility] INC INC CREATINE 97251 [facility] KINASE MB 6 [facility] FRACTION INC INC ONLY RADIOLOGI 69755 [facility]ONA LEANDRA C EXAM 6 MEDICAL NATALIE CHEST 2 IMAGING VIEWS ASS FRONTAL&L ATERAL GROUND A0425 [facility] MILEAGE 6 AMBULANCE AMBULANCE PER SERVICE SERVICE STATUTE MILE AMBULANCE A0429 [facility] SERVICE 6 AMBULANCE AMBULANCE BLS SERVICE SERVICE EMERGENCY TRANSPORT GROUND A0425 [facility] MILEAGE 6 AMBULANCE AMBULANCE [place] [address] [facility] AMYLASE 6 [facility] INC INC BLOOD 07165 [facility] COUNT 6 [facility] COMPLETE INC INC AUTO&AUTO DIFRNTL WBC COMPREHEN 42519 [facility] SIVE 6 [facility] METABOLIC INC INC PANEL AMB A0427 [facility] SERVICE 6 AMBULANCE AMBULANCE ALS SERVICE SERVICE EMERGENCY TRANSPORT LEVEL [address] [place] [address] [facility] LIPASE 6 [place] [address] [facility] OLIVEIRA ABDOMEN & 6 MEDICAL GITA PELVIS IMAGING W/O ASS CONTRAST MATERIAL DRUG 64331 COMBINED COMBINED ASSAY 6 PHYSICIAN PHYSICIAN VALPROIC S LA S LA DIPROPYLA CETIC ACID TOTAL LIPOPROTE 26820 [facility] IN DIR 5 TRACE GLE [facility] CHOLESTER OL GONADOTRO 14936 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 PIN 5 [facility] LUTEINIZI [place] [address] 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 ESTRADIOL 5 [facility] HOLDINGS GONADOTRO 90499 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 PIN 5 [facility] [place] FOLLICLE HOLD[facility] HOLDINGS STIMULATI NG HORMONE CULTURE 99957 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 BACTERIAL 5 [facility] HOLDINGS QUANTTATI VE COLONY COUNT URINE GENERAL 11908 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 HEALTH 5 [facility] PANEL HOLDINGS HOLDINGS HEMOGLOBI 29346 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 N 5 [facility] [facility] GLYCOSYLA HOLDINGS HOLDINGS KASEY A1C 25 72029 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 HYDROXY 5 PATTIE PATTIE INCLUDES HOLDINGS HOLDINGS FRACTIONS IF PERFORMED LIPID 62182 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 PANEL 5 [place]INGS HOLDINGS AMB A0427 [facility] SERVICE 5 AMBULANCE AMBULANCE ALS SERVICE SERVICE EMERGENCY TRANSPORT LEVEL 1 GROUND A0425 [facility] AMBULANCE PER SERVICE SERVICE STATUTE MILE ECG 49390 [facility] ROUTINE 5 ECG CONSULTIN W/LEAST G SERV 12 LDS I&R ONLY INITIAL 92260 TAM TAM INPATIENT 5 KAROL IGN KAROL IGN CONSULT NEW/ESTAB PT 80 MIN INITIAL 35702 [facility]ACE GLE FACILITY FAMILY CARE/DAY HEALTH 45 MINUTES LIPOPROTE 85614 [facility] IN DIR 5 TRACE GLE [facility] [place] 25 [address]136 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 HYDROXY 5 PATTIE PATTIE INCLUDES [facility] HOLDINGS FRACTIONS IF PERFORMED HEMOGLOBI 58648 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 N 5 PATTIE PATT[place] GLYCOSYLA [facility]INGS HOLDINGS KASYE A1C GENERAL 17161 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 HEALTH 5 P[place]IE PATTIE PANEL [facility]INGS HOLDINGS LIPID 75662 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 PANEL 5 PATTIE PATTIE [facility]INGS HOLDINGS ECG 96744 [facility] ROUTINE 5 TRACE GLE ECG FAMILY W/LEAST HEALTH 12 LDS W/I&R RADIOLOGI 81691 [facility] C EXAM 5 TRACE GLE CHEST 2 FAMILY VIEWS HEALTH FRONTAL&L ATERAL COLSC FLX 23054 DAVID HERNANDEZ 5 CO CO W/REMOVAL HOSPITAL HOSPITAL LESION BY HOT BX FORCEPS RINGERS J7120 DAVID HERNANDEZ LACTATE 5 CO CO INFUSION [facility] HOSPITAL UP TO 1000 CC COLONOSCO 29938 [facility] H[facility] PY 5 TRACE GLE W/BIOPSY FAMILY SINGLE/MU HEALTH LTIPLE COLSC FLX 40259 [facility] W/RMVL 5 TRACE GLE OF TUMOR FAMILY POLYP HEALTH LESION SNARE TQ ANES [address] [place] [address] AMERIPATH REENTTA SURG 5 [place] INC JAM PATHOLOGY GROSS&GEORGINA ROSCOPIC EXAM RADEX ABD 81937 [facility] COMPL 4 CHELSI AQT ABD RADIOLOGY W/S/E/D ASSOCI[place] V[place] [address] [place] [address] DAVID HERNANDEZ ABDOMEN & 4 CO CO PELVIS [facility] HOSPITAL W/O CONTRST 1/> [place] [address] [facility] ABDOMEN & 4 EIDER ANETA PELVIS RADIOLOGY W/CONTRAS ASSOCIAT T MATERIAL BRNCDILAT 26600 [facility] RSPSE 4 TRACE GLE SPMTRY FAMILY PRE&POST- HEALTH BRNCDILAT ADMN RADIOLOGI 60611 FRANK BAILEY SHE C EXAM 4 TRACE CHEST 2 FAMILY VIEWS [place] FRONTAL&[place] [address] [facility] S[facility] ABDOMINAL 4 INC - INC - REAL TIME W/IMAGE DOCUMENTA TION LIPOPROTE 19470 [facility]ANK [facility] IN DIR 4 TRACE GLE [facility] CHOLESTER OL ANES 31071 DAVID RUIZ UPPER GI [address] [place] [address] ENDOSCOPY HOSP[place] [address] AMERIPATH RENETTA SURG 4 [place] INC JAM PATHOLOGY GROSS&GEORGINA ROSCOPIC EXAM CUL BACT 95833 DAVID HERNANDEZ AEROBIC 4 CO CO [facility] METHS DEFINITIV E EA ISOL EGD 34407 FRANK HILARIA TRANSORAL 4 TRACE GLE BIOPSY FAMILY SINGLE/MU HEALTH LTIPLE RINGERS J7120 DAVID HERNANDEZ LACTATE 4 CO CO INFUSION [facility] HOSPITAL UP TO 1000 CC LIPID 78295 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 PANEL 4 [place] [facility] HOLDINGS GONADOTRO 04839 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 PIN 4 PATTIE PATTIE FOLLICLE HOLDINGS HOLDINGS STIMULATI NG HORMONE GENERAL 47895 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 HEALTH 4 P[place]ATT[place] PANEL HOLDINGS HOLDINGS HEMOGLOBI 59933 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 N 4 PATTIE PATTIE GLYCOSYLA [place] [address] 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 FREE 4 PATTIE PATTIE THYROXINE HOLDINGS HOLDINGS 25 29077 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 HYDROXY 4 PATTIE PATTIE INCLUDES HOLDINGS HOLDINGS FRACTIONS IF PERFORMED GONADOTRO 55133 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 PIN 4 PATTIE PATTIE LUTEINIZI HOLDINGS HOLDINGS NG HORMONE INJECTION J0696 FRANK MALEK SHE 4 TRACE CEFTRIAXO FAMILY NE [facility] PER 250 MG RADIOLOGI 28839 [facility] C EXAM 4 EIDER ANETA CHEST 2 RADIOLOGY VIEWS ASSOCIAT FRONTAL&L ATERAL NONEMERG A0120 [place] COMPTRAN TRNSPRT: 4 [facility] ACT AREA/OTH SYS NONEMERG A0120 [place] COMPTRAN TRNSPRT: 4 [facility] ACT AREA/OTH SYS NONEMERG A0120 [place] COMP[facility] TRNSPRT: 4 [facility] ACT AREA/OTH SYS NONEMERG A0120 [place] [facility]TRAN TRNSPRT[facility] 4 [facility] ACT AREA/OTH SYS NONEMERG A0120 [place] [facility]TRAN TRNSPRT[facility] 4 [facility] ACT AREA/OTH SYS NONEMERG A0120 [place] [facility]TRAN TRNSPRT[facility] 4 [facility] ACT AREA/OTH SYS NONEMERG A0120 [place] [facility] TRNSPRT[facility] 4 [facility] ACT AREA/OTH SYS NONEMERG A0120 [place] [facility]TRAN TRNSPRT[facility] 4 [facility] ACT AREA/OTH SYS NONEMERG A0120 [place] [facility]TRAN TRNSPRT[facility] 4 [facility] ACT AREA/OTH SYS NONEMERG A0120 [place] [facility]TRAN TRNSPRT[facility] 4 [facility] ACT AREA/OTH SYS NONEMERG A0120 [place] [facility]TRAN TRNSPRT[facility] 4 [facility] ACT AREA/OTH SYS NONEMERG A0120 [place] [facility] TRNSPRT[facility] 4 [facility] ACT AREA/OTH SYS NONEMERG A0120 [place] [facility] TRNSPRT[facility] 4 [facility] ACT AREA/OTH SYS NONEMERG A0120 [place] [facility] TRNSPRT[facility] 4 [facility] ACT AREA/OTH SYS NONEMERG A0120 [place] [facility]TRAN TRNSPRT[facility] 4 [facility] ACT AREA/OTH SYS NONEMERG A0120 [place] [facility]TRAN TRNSPRT[facility] 4 [facility] ACT AREA/OTH SYS NONEMERG A0120 [place] [facility] TRNSPRT[facility] 4 [facility] ACT AREA/OTH SYS NONEMERG A0120 [place] [facility]TRAN TRNSPRT: 4 [facility] MTN ACT AREA/OTH SYS NONEMERG A0120 [place] [facility] TRNSPRT: 4 [facility] NONEMERG A0120 [place] [facility] TRNSPRT: 4 [facility] MTN ACT AREA/OTH SYS COLLECTIO [id number] TAYLOR JAMESON TAMANNA N VENOUS 4 [facility] [place] [address] 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 4 P[place]IE P[place] [id number] 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 TESTOSTER 4 PATTIE PATTIE ONE [employer] NONEMERG A0120 [place] [facility]TRAN TRNSPRT: 4 [facility] MTN ACT AREA/OTH SYS NONEMERG A0120 [place] [facility] TRNSPRT: 4 [facility] NONEMERG A0120 [place] [facility] TRNSPRT: 4 [facility] NONEMERG A0120 [place] [facility]TRAN TRNSPRT: 4 [facility] MTN ACT AREA/OTH SYS NONEMERG A0120 [place] [facility] TRNSPRT: 4 [facility] NONEMERG A0120 [place] [facility] TRNSPRT: 4 [facility] NONEMERG A0120 [place] [facility] TRNSPRT[facility] 4 [facility] NONEMERG A0120 [place] [facility] TRNSPRT[facility] 4 [facility] NONEMERG A0120 [place] [facility] TRNSPRT: 4 [facility]OTH SYS NONEMERG A0120 [place] [facility]TRAN TRNSPRT: 4 [facility] MTN ACT AREA/OTH SYS NONEMERG A0120 [place] [facility] TRNSPRT: 4 [facility] NONEMERG A0120 [place] [facility] TRNSPRT: 4 [facility] HEMORRHOI [id number] DAVID CHARO DECTOMY 4 CO HOSP LAR INTERNAL RUBBER BAND LIGATIONS COLONOSCO 75[address] DAVID HERNANDEZ PY 4 CO CO W/BIOPSY [facility] SINGLE/MU LTIPLE RINGERS [id number] HERNANDEZDEMAR HERNANDEZ LACTATE 4 CO CO INFUSION [facility] UP TO 1000 CC INJECTION J1885 HERNANDEZDEMAR HERNANDEZ 4 CO CO KETOROLAC [facility] TROMETHAM INE PER 15 MG INJECTION J3010 HERNANDEZDEMAR HERNANDEZ FENTANYL 4 CO CO CITRATE [facility] 0.1 MG INJECTION J3360 HERNANDEZDEMAR HERNANDEZ DIAZEPAM 4 CO CO UP TO 5 [place] [address] HERNANDEZ HERNANDEZ SURG 4 CO CO PATHOLOGY [facility] GROSS&GEORGINA ROSCOPIC EXAM INJECTION J2405 DAVID HERNANDEZ 4 CO CO [facility] ON HCL PER 1 MG ANESTHESI 37412 HERNANDEZ HERNANDEZ A 4 CO CO ANORECTAL [facility] PROCEDURE NONEMERG A0120 [place] [facility] TRNSPRT: 4 [facility] ACT AREA/OTH SYS NONEMERG A0120 [facility] TRNSPRT: 4 [facility] NONEMERG A0120 [place] [facility] TRNSPRT: 4 [facility] ACT AREA/OTH SYS NONEMERG A0120 [facility] [facility] TRNSPRT: 4 [facility]YS NONEMERG A0120 [facility] TRNSPRT: 4 [facility]OTH SYS NONEMERG A0120 [facility] TRNSPRT: 4 [facility]OTH SYS NONEMERG A0120 [facility] [facility] TRNSPRT: 4 [facility] ACT AREA/OT SYS NONEMERG A0120 [facility] [facility] TRNSPRT: 4 [facility] ACT AREA/OT SYS NONEMERG A0120 [place] [facility] TRNSPRT: [address] [facility] SYS SCREENING G0202 DAVID HERNANDEZ 4 CO CO [facility] HY JOSI INCL CAD WHEN PERFORMD ELECTROLY 92943 [facility] TE PANEL 4 DIAGNOSTI DIAGNOSTI CS CS INCORPORA T COMPUTER- 53965 DAVID HERNANDEZ AIDED 4 CO CO DETECTION [facility] SCREENING MAMMOGRAP HY LIPID 79513 [facility] PANEL 4 DIAGNOSTI DIAGNOSTI CS CS INCORPORA T TRANSFERA 89326 [facility] SE 4 DIAGNOSTI DIAGNOSTI ASPARTATE CS CS AMINO INCORPORA AST SGOT T TRANSFERA 81874 [facility] SE 4 DIAGNOSTI DIAGNOSTI ALANINE CS CS [place] [address] [facility] UREA 4 DIAGNOSTI DIAGNOSTI NITROGEN CS CS [place] [address] [facility] PHOSPHATA 4 DIAGNOSTI DIAGNOSTI SE CS CS ALKALINE INCORPORA T CREATININ 92700 [facility] E BLOOD 4 DIAGNOSTI DIAGNOSTI CS CS INCORPORA T BILIRUBIN 67687 [facility] TOTAL 4 DIAGNOSTI DIAGNOSTI CS CS INCORPORA T CALCIUM 79132 [facility] TOTAL 4 DIAGNOSTI DIAGNOSTI CS CS INCORPORA T PROTEIN 46671 [facility] XCPT 4 DIAGNOSTI DIAGNOSTI REFRACTOM CS CS ETRY INCORPORA SERUM T PLASMA/WH L BLD ALBUMIN 08810 [facility] SERUM 4 DIAGNOSTI DIAGNOSTI PLASMA/WH CS CS OLE BLOOD INCORPORA T BLOOD 44788 [facility] COUNT 4 DIAGNOSTI DIAGNOSTI COMPLETE CS CS AUTO&AUTO INCORPORA DIFRNTL T WBC NONEMERG A0120 [place] [facility] TRNSPRT: 4 [facility] ACT AREA/OTH SYS NONEMERG A0120 [place] [facility] TRNSPRT: 4 [facility]OTH SYS NONEMERG A0120 [place] [facility] TRNSPRT: 4 [facility] ACT AREA/OTH SYS NONEMERG A0120 [place] [facility] TRNSPRT: 4 [facility] ACT AREA/OTH SYS NONEMERG A0120 [facility] [facility] TRNSPRT: 4 [facility] ACT AREA/OTH SYS NONEMERG A0120 [facility] [facility] TRNSPRT: 4 [facility] ACT AREA/OTH SYS CYTP C/V 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 JOSE JUAN OF Y JOSE JUAN OF LYR PATTIE PATTIE PREPJ SCR H H MNL RESCR PHYS NONEMERG A0120 [facility] [facility] TRNSPRT: 4 [facility] ACT AREA/OTH SYS NONEMERG A0120 [place] [facility] TRNSPRT: 4 [facility] ACT AREA/OTH SYS NONEMERG A0120 [place] [facility] TRNSPRT: 4 [facility] ACT AREA/OTH SYS NONEMERG A0120 [place] [facility] TRNSPRT: 4 [facility] ACT AREA/OTH SYS NONEMERG A0120 [place] [facility] TRNSPRT: 4 [facility] ACT AREA/OTH SYS NONEMERG A0120 [place] [facility] TRNSPRT: 4 [facility] AREA[facility]OTH SYS NONEMERG A0120 [place] [facility] TRNSPRT: 4 [facility] ACT AREA/OTH SYS FUNDUS 64526 ETHAN LONG PHOTOGRAP 4 CARIDAD CARIDAD HY W/INTERPR ETATION & REPORT OPHTH 77467 ETH[facility] LONG MEDICAL 4 CARIDAD CARIDAD XM&EVAL COMPRE NEW PT 1/> VST NONEMERG A0120 [facility] [facility] TRNSPRT: 4 [facility] MTN ACT AREA/OTH SYS NONEMERG A0120 [place] [facility] TRNSPRT: 4 [facility] MTN ACT AREA/OTH SYS NONEMERG A0120 [place] [facility] TRNSPRT: 4 [facility] AREA/OTH SYS NONEMERG A0120 [place] [facility] TRNSPRT: 4 [facility] ACT AREA/OTH SYS NONEMERG A0120 [place] [facility] TRNSPRT: 4 [facility] ACT AREA/OTH SYS NONEMERG A0120 [place] [facility] TRNSPRT: 4 [facility] ACT AREA/OTH SYS NONEMERG A0120 [place] [facility] TRNSPRT: 4 [facility] ACT AREA/OTH SYS NONEMERG A0120 [facility] [facility] TRNSPRT: 4 [facility] ACT AREA/OTH SYS NONEMERG A0120 [place] [facility] TRNSPRT: 4 [facility] ACT AREA/OTH SYS NONEMERG A0120 [place] [facility] TRNSPRT: 4 [facility] ACT AREA/OTH SYS NONEMERG A0120 [place] [facility] TRNSPRT: 4 [facility] ACT AREA/OTH SYS NONEMERG A0120 [place] [facility] TRNSPRT: 4 [facility] ACT AREA/OTH SYS NONEMERG A0120 [facility] [facility] TRNSPRT: 4 [facility] ACT AREA/OTH SYS LIPID 79370 FLAQUITO HUDDLESTON PANEL 3 [facility] BILIRUBIN 37775 FLAQUITO HUDDLE[facility] DIRECT 3 [facility] COMPREHEN 17614 FLAQUITO HUDDLESTON SIVE 3 [facility] METABOLIC INC INC PANEL IIV4 VACC 50976 MARY ELLEN HYDE PRESRV 3 CO CO FREE 0.5 HEALTH HEALTH ML FOR IM DEPARTME DEPARTME USE SBSQ 07652 [facility] 3 CARE/DAY 15 MINUTES INITIAL 08462 [facility] INPATIENT 3 CONSULT NEW/ESTAB PT 20 MIN ECG 72694 GRACE NORTON NORTON GRACE ROUTINE 3 MD ECG CONSULTIN W/LEAST G SERV 12 LDS I&R ONLY NONEMERG A0120 [place] [facility] TRNSPRT: 3 [facility] ACT AREA/OTH SYS RADIOLOGI [address] [facility] EXAM 3 GARTH GARTH CHEST 2 VIEWS PHYSICIAN PHYSICIAN FRONTAL&L S SEPTEMBER S SEPTEMBER ATERAL NONEMERG A0120 [facility] [facility] TRNSPRT: 3 [facility] ACT AREA/OTH SYS NONEMERG A0120 [facility] TRNSPRT: 3 [facility] ACT AREA/OTH SYS NONEMERG A0120 [facility] TRNSPRT: 3 [facility] ACT AREA/OTH SYS NONEMERG A0120 [facility] TRNSPRT: 3 [facility] ACT AREA/OTH SYS NONEMERG A0120 [facility] TRNSPRT: 3 [facility] MTN AREA/OTH SYS NONEMERG A0120 [facility] TRNSPRT: 3 [facility] MTN AREA/OTH SYS NONEMERG A0120 [facility] TRNSPRT: 3 [facility] MTN AREA/OTH SYS NONEMERG A0120 [facility] TRNSPRT: 3 [facility] MTN AREA/OTH SYS NONEMERG A0120 [facility] TRNSPRT: 3 [facility] MTN AREA/OTH SYS NONEMERG A0120 [facility] TRNSPRT: 3 [facility] MTN AREA/OTH SYS NONEMERG A0120 [facility] TRNSPRT: 3 [facility] MTN AREA/OTH SYS NONEMERG A0120 [facility] TRNSPRT: 3 [facility] MTN AREA/OTH SYS NONEMERG A0120 [facility] TRNSPRT: 3 [facility] MTN AREA/OTH SYS NONEMERG A0120 [facility] TRNSPRT: 3 [facility] MTN AREA/OTH SYS NONEMERG A0120 [facility] TRNSPRT: 3 [facility] MTN AREA/OTH SYS NONEMERG A0120 [facility] TRNSPRT: 3 [facility] MTN AREA/OTH SYS NONEMERG A0120 [facility] TRNSPRT: 3 [facility] MTN AREA/OTH SYS NONEMERG A0120 [facility] TRNSPRT: 3 [facility] MTN AREA/OTH SYS NONEMERG A0120 [facility] TRNSPRT: 3 [facility] MTN AREA/OTH SYS NONEMERG A0120 [facility] TRNSPRT: 3 [facility] MTN AREA/OTH SYS NONEMERG A0120 [facility] TRNSPRT: 3 [facility] MTN AREA/OTH SYS NONEMERG A0120 [facility] TRNSPRT: 3 [facility] MTN AREA/OTH SYS NONEMERG A0120 [facility] TRNSPRT: 3 [facility] MTN AREA/OTH SYS NONEMERG A0120 [facility] TRNSPRT: 3 [facility] MTN AREA/OTH SYS NONEMERG A0120 [facility] COMPTRAN TRNSPRT: 3 [facility] MTN AREA/OTH SYS ADMN SET A7003 YOUR YOUR SM VOL 3 [facility]Y PH[facility] PNEUMAT NEBULIZR DISPBL NONEMERG A0120 [facility] TRNSPRT: 3 [facility] MTN AREA/OTH SYS NONEMERG A0120 [facility] TRNSPRT: 3 [facility] MTN AREA/OTH SYS NONEMERG A0120 [facility] TRNSPRT: 3 [facility] MTN AREA/OTH SYS NONEMERG A0120 [facility] TRNSPRT: 3 [facility] MTN AREA/OTH SYS NONEMERG A0120 [facility] TRNSPRT: 3 [facility] MTN AREA/OTH SYS NONEMERG A0120 [facility] TRNSPRT: 3 [facility] MTN AREA/OTH SYS NONEMERG A0120 [facility] COMPTRAN TRNSPRT: 3 [facility] MTN AREA/OTH SYS NONEMERG A0120 [facility] TRNSPRT: 3 [facility] MTN AREA/OTH SYS NONEMERG A0120 [facility] TRNSPRT: 3 [facility] MTN AREA/OTH SYS NONEMERG A0120 [facility] TRNSPRT: 3 [facility] MTN AREA/OTH SYS NONEMERG A0120 [facility] TRNSPRT: 3 [facility] MTN AREA/OTH SYS NONEMERG A0120 [facility] TRNSPRT: 3 [facility] MTN AREA/OTH SYS NONEMERG A0120 [facility] TRNSPRT: 3 [facility] MTN AREA/OTH SYS NONEMERG A0120 [facility] TRNSPRT: 3 [facility] MTN AREA/OTH SYS NONEMERG A0120 [facility] COMPTRAN TRNSPRT: 3 [facility] MTN AREA/OTH SYS ADMN SET A7003 YOUR YOUR SM VOL 3 [facility] PNEUMAT NEBULIZR DISPBL NONEMERG A0120 [facility] TRNSPRT: 3 [facility] MTN AREA/OTH SYS NONEMERG A0120 [facility] TRNSPRT: 3 [facility] MTN AREA/OTH SYS NONEMERG A0120 [facility] TRNSPRT: 3 [facility] MTN AREA/OTH SYS ECG [address] [facility] KATHLEEN ROUTINE 3 DONNA III J ECG CARDIOLOG W/LEAST Y CLINIC 12 LDS I&R ONLY NONEMERG A0120 [facility] TRNSPRT: 3 [facility] MTN AREA/OTH SYS NONEMERG A0120 [facility] TRNSPRT: 2 [facility] MTN AREA/OTH SYS DEBRIDEME 43899 PAWSAT PAWSAT NT NAIL 2 Jul ANY METHOD 6/> NONEMERG A0120 [facility] COMPTRAN TRNSPRT: 2 [facility] MTN AREA/OTH SYS NONEMERG A0120 [facility] COMPTRAN TRNSPRT: 2 [facility] MTN AREA/OTH SYS NONEMERG A0120 [facility] COMPTRAN TRNSPRT: 2 [facility] MTN AREA/OTH SYS NONEMERG A0120 [facility] COMPTRAN TRNSPRT: 2 [facility] MTN AREA/OTH SYS NONEMERG A0120 [facility] COMPTRAN TRNSPRT: 2 [facility] MTN AREA/OTH SYS NONEMERG A0120 [facility] COMPTRAN TRNSPRT: 2 [facility] MTN AREA/OTH SYS NONEMERG A0120 [facility] COMPTRAN TRNSPRT: 2 [facility] MTN AREA/OTH SYS ADMN SET A7003 YOUR YOUR SM VOL 2 [facility] PNEUMAT NEBULIZR DISPBL NONEMERG A0120 [facility] COMPTRAN TRNSPRT: 2 [facility] MTN AREA/OTH SYS NONEMERG A0120 [facility] TRNSPRT: 2 [facility] MTN AREA/OTH SYS NONEMERG A0120 [facility] TRNSPRT: 2 [facility] MTN AREA/OTH SYS NONEMERG A0120 [facility] TRNSPRT: 2 [facility] MTN AREA/OTH SYS NONEMERG A0120 [facility] TRNSPRT: 2 [facility] MTN AREA/OTH SYS NONEMERG A0120 [facility] TRNSPRT: 2 [facility] MTN AREA/OTH SYS NONEMERG A0120 [facility] TRNSPRT: 2 [facility] MTN AREA/OTH SYS NONEMERG A0120 [facility] TRNSPRT: 2 [facility] MTN AREA/OTH SYS NONEMERG A0120 [facility] TRNSPRT: 2 [facility] MTN AREA/OTH SYS NONEMERG A0120 [facility] TRNSPRT: 2 [facility] MT[facility] AREA/OTH SYS CULTURE 78774 [facility] BACTERIAL 2 DIAGNOSTI DIAGNOSTI CS CS QUANTTATI VE COLONY COUNT URINE ADMN SET A7003 YOUR YOUR SM VOL 2 [facility] PNEUMAT NEBULIZR DISPBL NONEMERG A0120 [facility] TRNSPRT: 2 [facility] MTN AREA/OTH SYS NONEMERG A0120 [facility] TRNSPRT: 2 [facility] MTN AREA/OTH SYS NONEMERG A0120 [facility] TRNSPRT: 2 [facility] MTN AREA/OTH SYS NONEMERG A0120 [facility] TRNSPRT: 2 [facility] MTN AREA/OTH SYS NONEMERG A0120 [facility] TRNSPRT: 2 [facility] MTN AREA/OTH SYS LIPID 91195 [facility] PANEL 2 DIAGNOSTI DIAGNOSTI CS CS GENERAL 94778 [facility] HEALTH 2 DIAGNOSTI [place] [address] [facility] FREE 2 DIAGNOSTI DIAGNOSTI THYROXINE CS CS 25 14730 [facility] HYDROXY 2 DIAGNOSTI DIAGNOSTI INCLUDES CS CS FRACTIONS IF PERFORMED NONEMERG A0120 [facility] TRNSPRT: 2 [facility] AREA/OTH SYS NONEMERG A0120 [facility] TRNSPRT: 2 [facility] MTN AREA/OTH SYS NONEMERG A0120 [facility] TRNSPRT: 2 [facility] MTN AREA/OTH SYS NONEMERG A0120 [facility] TRNSPRT: 2 [facility] MTN AREA/OTH SYS NONEMERG A0120 [facility] TRNSPRT: 2 [facility] MTN AREA/OTH SYS NONEMERG A0120 [facility] TRNSPRT: 2 [facility] MTN AREA/OTH SYS ADMN SET A7003 YOUR YOUR SM VOL 2 PHARMACY PHARMAC[facility] PNEUMAT NEBULIZR DISPBL NONEMERG A0120 [facility] TRNSPRT: 2 [facility] MTN AREA/OTH SYS NONEMERG A0120 [facility] TRNSPRT: 2 [facility] MTN AREA/OTH SYS NONEMERG A0120 [facility] TRNSPRT: 2 [facility] MTN AREA/OTH SYS NONEMERG A0120 [facility] TRNSPRT: 2 [facility] MTN AREA/OTH SYS NONEMERG A0120 [facility] TRNSPRT: 2 [facility]N AREA/OTH SYS ADMN SET A7003 YOUR YOUR SM VOL 2 PHARMACY PH[facility]AC[facility] PNEUMAT NEBULIZR DISPBL [facility]- [address]141 DAVID HERNANDEZ AIDED 2 CO CO [facility] SCREENING MAMMOGRAP HY NONEMERG A0120 [facility] TRNSPRT: 2 [facility] AREA/OTH SYS SCREENING G0202 [facility] 2 CO CO [facility] HY JOSI INCL CAD WHEN PERFORMD NONEMERG A0120 [facility] TRNSPRT: 2 [facility] MTN AREA/OTH SYS NONEMERG A0120 [facility] TRNSPRT: 2 [facility] MTN AREA/OTH SYS NONEMERG A0120 [facility] TRNSPRT: 2 [facility] MTN AREA/OTH SYS NONEMERG A0120 [facility] TRNSPRT: 2 [facility] MTN AREA/OTH SYS NONEMERG A0120 [facility] TRNSPRT: 2 [facility] MTN AREA/OTH SYS NONEMERG A0120 [facility] TRNSPRT: 2 [facility] MTN AREA/OTH SYS NONEMERG A0120 [facility] TRNSPRT: 2 [facility] MTN AREA/OTH SYS NONEMERG A0120 [facility] TRNSPRT: 2 [facility] MTN AREA/OTH SYS NONEMERG A0120 [facility] TRNSPRT: 2 [facility] MTN AREA/OTH SYS NONEMERG A0120 [facility] TRNSPRT: 2 [facility] MTN AREA/OTH SYS NONEMERG A0120 [facility] TRNSPRT: 2 [facility] MTN AREA/OTH SYS ADMN SET A7003 YOUR YOUR SM VOL 1 [facility] PNEUMAT NEBULIZR DISPBL NEBULIZER E0570 MARIAH MARIAH WITH 1 HOME HOME [facility] R EQUIPME EQUIPME RADIOLOGI 51088 ARIZONA LEANDRA C EXAM 1 MEDICAL NATALIE CHEST 2 IMAGING VIEWS ASS FRONTAL&L ATERAL LIPID 09878 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 PANEL 1 Y & Y & BIODIAGNO BIODIAGNO STICS STICS CYANOCOBA 87143 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 PETERSON 1 Y & Y & VITAMIN BIODIAGNO BIODIAGNO B-12 STICS STICS 25 41611 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 HYDROXY 1 Y & Y & INCLUDES BIODIAGNO BIODIAGNO FRACTIONS STICS STICS IF PERFORMED COLLECTIO 92507 [facility] N VENOUS 1 [facility] [place] [address] 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 FREE 1 Y & Y & THYROXINE BIODIAGNO BIODIAGNO STICS STICS GENERAL 68597 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 HEALTH 1 Y & Y & PANEL BIODIAG[place] [address] 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 TRIIODOTH 1 Y & Y & YRONINE BIODIAGNO BIODIAGNO T3 FREE STICS STICS IIV3 04874 FLAQUITO FLAQUITO VACCINE 1 [facility] VIRUS 0.5 ML DOSAGE IM USE ALS A0398 [facility] MASSE[facility] ROUTINE 1 AMBULANCE AMBULANCE DISPOSABL SERVICE SERVICE E SUPPLIES GROUND A0425 [facility] MILEAGE 1 AMBULANCE AMBULANCE PER SERVICE SERVICE STATUTE MILE AMB A0427 [facility] SERVICE 1 AMBULANCE AMBULANCE ALS SERVICE SERVICE EMERGENCY TRANSPORT LEVEL 1 AMB A0422 [facility] OXYGEN&O2 1 AMBULANCE AMBULANCE SUPPLIES SERVICE SERVICE LIFE SUSTAININ G SITUATION LIPID 64216 COMBINED COMBINED PANEL 1 PHYSICIAN PHYSICIAN S LA S LA COMPREHEN 37263 COMBINED COMBINED SIVE 1 PHYSICIAN PHYSICIAN METABOLIC S LA S LA PANEL HEMOGLOBI 01858 COMBINED COMBINED N 1 PHYSICIAN PHYSICIAN GLYCOSYLA S LA S LA KASEY A1C BLOOD 89584 COMBINED COMBINED COUNT 1 PHYSICIAN PHYSICIAN COMPLETE S LA S LA AUTO&AUTO DIFRNTL WBC URNLS DIP 07024 COMBINED COMBINED 1 PHYSICIAN PHYSICIAN STICK/TAB S LA S LA LET REAGENT AUTO MICROSCOP Y IIV3 93436 FLAQUITO FELDERON VACCINE 0 [facility] VIRUS 0.5 ML DOSAGE IM USE OPHTH 55324 [facility] 0 VISION ANG XM&EVAL COMPRHNSV ESTAB PT 1/> BLOOD 93558 COMBINED COMBINED COUNT 0 PHYSICIAN PHYSICIAN COMPLETE S LAB S LAB AUTO&AUTO DIFRNTL WBC BASIC 92683 COMBINED COMBINED METABOLIC 0 PHYSICIAN PHYSICIAN PANEL S LAB S LAB CALCIUM TOTAL BLOOD 20014 [facility] COUNT 0 MED LAB MED LAB COMPLETE AUTO&AUTO DIFRNTL WBC BLOOD 91978 [facility] COUNT 0 MED LAB MED LAB COMPLETE AUTOMATED BLOOD 86293 [facility] COUNT 0 MED LAB MED LAB SMEAR MCRSCP W/MNL DIFRNTL WBC COUNT SBSQ 94989 CALLIE, CALLIE, NURSING 0 AMANDA M AMANDA M FACIL CARE/DAY MINOR COMPLJ 15 MIN BASIC 56016 [facility] METABOLIC 0 MED LAB MED LAB PANEL CALCIUM TOTAL BLOOD 20314 [facility] COUNT 0 MED LAB MED LAB COMPLETE AUTO&AUTO DIFRNTL WBC BLOOD 24162 [facility] COUNT 0 MED LAB MED LAB COMPLETE AUTO&AUTO DIFRNTL WBC SBSQ 84907 CALLIE, CALLIE, NURSING 0 AMANDA M AMANDA M FACIL CARE/DAY MINOR COMPLJ 15 MIN URNLS DIP 78512 [facility] 0 MED LAB MED LAB STICK/TAB LET REAGENT AUTO MICROSCOP Y INFUSION J7050 [facility] NORMAL 9 CO CO SALINE [facility] SOLUTION 250 CC ALBUTEROL J7613 [facility] INHAL 9 CO CO NON-CP [facility] PROD THRU DME U DOSE 1 MG INJECTION J2060 [facility] 9 CO CO LORAZEPAM [facility] 2 MG MAMMOGRAP 69399 [facility] HY 9 CO CO UNILATERA [facility] L BASIC 27245 [facility] METABOLIC 9 MED LAB MED LAB PANEL CALCIUM TOTAL BLOOD 04199 [facility] COUNT 9 MED LAB MED LAB COMPLETE AUTO&AUTO DIFRNTL WBC BLOOD 35794 [facility] COUNT 9 MED LAB MED LAB COMPLETE AUTO&AUTO DIFRNTL WBC BLOOD 33314 [facility] COUNT 9 MED LAB MED LAB COMPLETE AUTO&AUTO DIFRNTL WBC URNLS DIP 99341 [facility] 9 MED LAB MED LAB STICK/TAB LET REAGENT AUTO MICROSCOP Y BASIC 54911 [facility] METABOLIC 9 MED LAB MED LAB PANEL CALCIUM TOTAL L HRT 02462 JESSICA JONESASHLEY CATHETERI [address] [facility] CENTER BRACHIAL PERQ PLCMT G0269 MEADOWVIE MEAWVIE OCCL DEVC [address] [facility] CENTER SURG/INTR VNL PROC INJECTION 15087 JOSIANE SAUCEDA, CARDIAC 9 [facility] PSC VENTR/[place] [address] ROBERTASHLEY LOPEZ C-CATHJ 9 W W F/SLCTV C [facility] I SI&R 40486 JESSICA SONIWVIE F/NJX PX [address] [facility]&/AT CENTER CENTER R [facility] I SI&R 08484 JOSIANE SAUCEDA, F/NJX PX 9 SPELTER NELIA DURING HEART PSC C-CATHJ PULM&/OR SELECT BASIC 07441 [facility] METABOLIC 9 MED LAB MED LAB PANEL CALCIUM TOTAL BLOOD 13835 [facility] COUNT 9 MED LAB MED LAB COMPLETE AUTO&AUTO DIFRNTL WBC MYOCRD 04096 JOSIANE SAUCEDA, PRFUJ STD 9 SPELTER NELIA WALL HEART PSC MOTION QUAL/YINKA STD MYOCRD 77007 JOSIANE SAUCEDA, PRFUJ IMG 9 [place] PICKENS TOMOG HEART PSC SPECT OUTPATIENT CLERK STD CV STRS 53604 JOSIANE SAUCEDA, TST 9 [place] [place] XERS&/OR HEART PSC RX CONT ECG W/SI&R THER 35869 JOSIANE SAUCEDA, PROPH/DX 9 SPELTER NELIA NJX IV HEART PSC PUSH SINGLE/1S T SBST/DRUG MYOCRD 12809 JOSIANE SAUCEDA, PRFUJ STD 9 SPELTER NELIA EJEC FXJ HEART PSC PRESSURIZ 22207 JOSIANE SAUCEDA, ED/NONPRE 9 [place] PICKENS SSURIZED HEART PSC INHALATIO N TREATMENT CV STRS 03556 [place] LYUBOV TST 9 VALLEY N, XERS&/OR HEART PSC RAGHURAMA RX CONT N ECG W/SI&R BLOOD 46739 [facility] COUNT 9 MED LAB MED LAB COMPLETE AUTO&AUTO DIFRNTL WBC AMBULANCE A0429 [facility] SERVICE 9 EMS [facility] [employer] EMERGENCY TRANSPORT GROUND A0425 [facility] MILEAGE 9 EMS [facility] EMS [facility] STATUTE MILE SBSQ 10407 CALLIE LEDESMA, NURSING 9 AMANDA M AMANDA M FACIL CARE/DAY NEW PROBLEM 25 MIN US BREAST 04702 [facility] 9 LELA S TIME RADIOLOGY W/IMAGE DOCUMENTA ASSOCIATE TION S PSC MAMMOGRAP 38341 [facility] 9 LELA S [place] RADIOLOGY L ASSOCIATE S PSC SCREENING 41891 JESSICA LOPEZ 9 W W MAMMOGRAP [facility] CENTER [facility] [address] [facility] SIVE 9 MED LAB MED LAB METABOLIC PANEL BLOOD 98380 [facility] COUNT 9 MED LAB MED LAB COMPLETE AUTO&AUTO DIFRNTL WBC L HRT 19856 [place] GABRIELLA, CATHETERI 9 SPELTER GERRY R ZATION HEART [place] [address] [facility] ANGIOGRAP 9 EIDER, HY CHEST RADIOLOGY CIRO W/CONTRAS K T/NONCONT ASSOCIATE RAST S PSC RADIOLOGI 78030 [facility] C 9 E[place]ER, EXAMINATI RADIOLOGY CIRO ON CHEST K SINGLE ASSOCIATE VIEW S PSC FRONTAL INJECTION 98928 [facility] 9 [facility] GERRY R CATHJ L HEART PSC VENTR/L ATR ANGIOGRAP H I SI&R 03174 JOSIANE QUIROZ, F/NJX PX 9 [facility] GERRY R DURING HEART PSC C-CATHJ VENTR&/[place] [address] JOSIANE QUIROZ, C-CATHJ 9 [place] GERRY R F/SLCTV C HEART PSC ANGRPH I SI&R 27008 JOSIANE QUIROZ, F/NJX PX 9 [place] GERRY R DURING HEART PSC C-CATHJ PULM&/OR SELECT ECG 65409 [place] KOMAL, ROUTINE 9 [place] NELIA ECG HEART PSC W/LEAST 12 LDS W/I&R ECG 90887 CARDIOLOG [place], ROUTINE 9 Y DYLAN A ECG ASSOCIATE W/LEAST S OF 12 LDS [place] I&R ONLY ECHO 57889 JOSIANE QUIROZ, TTHRC R-T 9 VALLEY GERRY R 2D HEART PSC W/WOM-MOD E COMPL SPEC&COLR D RADIOLOGI 25106 [facility] [place] EXAM 9 LELA S CHEST 2 RADIOLOGY VIEWS FRONTAL&L ASSOCIATE ATERAL S PSC RADIOLOGI 88701 [place] Vilma OWEN EXAM 9 LELA S CHEST 2 RADIOLOGY VIEWS FRONTAL&L ASSOCIATE ATERAL S PSC THERAPEUT 26406 MEADOWVIE MEADOWVIE IC 9 W W INJECTION REGIONAL REGIONAL IV PUSH MEDICAL MEDICAL [facility] CENTER DRUG THER 74186 MEADOWVIE MEADOWVIE PROPH/DX 9 W W NJX IV [facility] MEDICAL SINGLE/1S CENTER CENTER T SBST/[place] [address] MEADOWVIE MEADOWVIE INFUSION 9 W W HYDRATION [facility] INITIAL MEDICAL MEDICAL 31 MIN-1 CENTER CENTER HOUR COMPREHEN 40438 MEADOWVIE MEADOWVIE SIVE 9 W W METABOLIC [facility] PANEL [facility] [place] [facility] COLLECTIO 62663 MEADOWVIE MEADOWVIE N VENOUS [address] [facility] CENTER BLOOD 79236 MEADOWVIE MEADOWVIE COUNT [address] [facility] AUTO&AUTO MEDICAL MEDICAL DIFRNTL [facility] WBC URNLS DIP 84087 MEADOWVIE MEADOWVIE 9 W W STICK/TAB [facility] CENTER AUTO MICROSCOP Y SBSQ 19434 [facility] 9 [facility] CARE/DAY 15 MINUTES SBSQ 36754 [facility] 9 MICKI MICKI CARE/DAY 15 MINUTES INITIAL 68751 OSWALDO CHACON, INPATIENT 9 MICKI MICKI CONSULT NEW/ESTAB PT 20 MIN ECG 73081 CARDIOLOG [place], ROUTINE 9 Y DYLAN A ECG ASSOCIATE W/LEAST S OF 12 LDS [place] I&R ONLY SMALL A7004 [place] VOLUME 9 HOME HOME NONFILTR MEDICAL MEDICAL PNEUMATIC EQUIPMENT EQUIPMENT NEBULIZER DISPBL ADMN SET A7003 [place] SM VOL 9 HOME HOME NONFILTR MEDICAL MEDICAL PNEUMAT EQUIPMENT EQUIPMENT NEBULIZR DISPBL ADMN SET A7003 [place] SM VOL 9 HOME HOME NONFILTR MEDICAL MEDICAL PNEUMAT EQUIPMENT EQUIPMENT NEBULIZR DISPBL SMALL A7004 [place] VOLUME 9 HOME HOME NONFILTR MEDICAL MEDICAL PNEUMATIC EQUIPMENT EQUIPMENT NEBULIZER DISPBL SMALL A7004 [place] VOLUME 8 HOME HOME NONFILTR MEDICAL MEDICAL PNEUMATIC EQUIPMENT EQUIPMENT NEBULIZER DISPBL ADMN SET A7003 [place] SM VOL 8 HOME HOME NONFILTR MEDICAL MEDICAL PNEUMAT EQUIPMENT EQUIPMENT NEBULIZR DISPBL LIPID 22181 [facility] PANEL 8 [facility] INC INC BASIC [id number] [facility] METABOLIC 8 [facility] PANEL INC INC CALCIUM TOTAL TRANSFERA 06833 [facility] SE 8 [facility] ALANINE INC INC AMINO ALT SGPT IIV3 [id number] DHS/CO HYDE VACCINE 8 HEALTH CO SPLIT [facility] VIRUS 0.5 BANK ACCT DEPARTMEN ML T DOSAGE IM USE NEBULIZER [id number] [place] WITH 8 HOME HOME COMPRESSO MEDICAL MEDICAL R EQUIPMENT EQUIPMENT ADMN SET A7003 [place] SM VOL 8 HOME HOME NONFILTR MEDICAL MEDICAL PNEUMAT EQUIPMENT EQUIPMENT NEBULIZR DISPBL SMALL A7004 [place] VOLUME 8 HOME HOME NONFILTR MEDICAL MEDICAL PNEUMATIC EQUIPMENT EQUIPMENT NEBULIZER DISPBL LIPID 92941 [facility] PANEL 8 [facility] INC INC TRANSFERA 68592 [facility] SE [address] [facility] ALANINE INC INC AMINO ALT SGPT BASIC 35007 [facility] METABOLIC [address] [facility] PANEL INC INC CALCIUM TOTAL ADMN SET A7003 [place] SM VOL 8 HOME HOME NONFILTR MEDICAL MEDICAL PNEUMAT EQUIPMENT EQUIPMENT NEBULIZR DISPBL SMALL A7004 [place] VOLUME 8 HOME HOME NONFILTR MEDICAL MEDICAL PNEUMATIC EQUIPMENT EQUIPMENT NEBULIZER DISPBL SMALL A7004 [place] VOLUME 8 HOME HOME NONFILTR MEDICAL MEDICAL PNEUMATIC EQUIPMENT EQUIPMENT NEBULIZER DISPBL ADMN SET A7003 [place] SM VOL 8 HOME HOME NONFILTR MEDICAL MEDICAL PNEUMAT EQUIPMENT EQUIPMENT NEBULIZR DISPBL OPHTH 62950 BENNETT, BENNETT, MEDICAL 8 MARQUES A MARQUES A XM&EVAL COMPRE NEW PT 1/> VST ECG 57751 CARDIOLOG [place], ROUTINE 8 Y DYLAN A ECG ASSOCIATE W/LEAST S OF 12 LDS [place] I&R [place] NFS 07114 [facility] THER [address] [facility] PROPH/DX INC INC 1ST >1 HR BASIC 64154 [facility] METABOLIC [address] [facility] PANEL INC INC CALCIUM TOTAL BLOOD 98457 [facility] COUNT [address] [facility] COMPLETE INC INC AUTO&AUTO DIFRNTL WBC ADMN SET A7003 [place] SM VOL 8 HOME HOME NONFILTR MEDICAL MEDICAL PNEUMAT EQUIPMENT EQUIPMENT NEBULIZR DISPBL SMALL A7004 [place] VOLUME 8 HOME HOME NONFILTR MEDICAL MEDICAL PNEUMATIC EQUIPMENT EQUIPMENT NEBULIZER DISPBL Encounters Encounter Start End Date Code Location Performer Type Date EMERGENCY 27340 KATE TADEO DEPT 7 7 PHYSICIAN VISIT S, PLLC HIGH SEVERITY& THREAT FUN OFFICE [address] [facility] MOHINDER TOD OUTPATIEN 6 6 PHYSICIAN T VISIT S GROUP 10 MINUTES OFFICE 91580 BERTHA STONE OUTPATIEN 6 6 CHELSI CHELSI T VISIT 15 MINUTES [facility]OSPITAL [facility] - [facility] 6 [facility] OUTPATI[facility] INC T OFFICE [address] [facility] MOHINDER TOD OUTPATIEN 6 6 PHYSICIAN T VISIT S GROUP 10 MINUTES OFFICE [address] [facility] JOSE MIGUEL JR OUTPATIEN 6 6 PHYSICIAN WOOD T VISIT S GROUP 15 MINUTES OFFICE [address] [facility] MOHINDER TOD OUTPATIEN 6 6 PHYSICIAN T VISIT S GROUP 15 MINUTES OFFICE [address] [facility] MOHINDER TOD OUTPATIEN 6 6 PHYSICIAN T VISIT S GROUP 25 MINUTES [facility] - 6 6 [facility] OUTPATIEN INC T [facility] - 6 6 [facility] OUTPATIEN INC T OFFICE [address] [facility] MOHINDER TOD OUTPATIEN 6 6 PHYSICIAN T NEW 45 S GROUP MINUTES [facility]OSP[facility] - 6 6 [facility] OUTPATIEN INC T EMERGENCY 25227 KATE SAMUELS 6 6 PHYSICIAN MERNA Fitzpatrick PLLC T VISIT HIGH/URGE NT SEVERITY [facility] - 6 6 [facility] OUTPATIEN INC T EMERGENCY 44135 [facility] 6 6 [facility] DEPARTMEN INC T VISIT MODERATE SEVERITY [facility] - 6 6 [facility] OUTPATIEN INC T EMERGENCY 59548 KATE FARMER 6 6 PHYSICIAN GE[place]GINA Fitzpatrick PLL[facility] T VISIT HIGH/URGE NT SEVERITY EMERGENCY 98626 [facility] 6 6 [facility] DEPARTMEN INC T VISIT LOW/MODER SEVERITY EMERGENCY 66212 KATE MARLENY 6 6 PHYSICIAN [place] DEPARTMEN S, PLLC T VISIT HIGH/URGE NT SEVERITY EMERGENCY [address] [facility] [address] [facility] INC T VISIT LOW/MODER SEVERITY [facility]OSPITAL [facility] - [address] [facility] EMERGENCY 49138 BREA BREA 5 5 MAR [facility] MOD[facility]ATE SEVERITY OFFICE 34970 FRANK HILARIA OUTPATIEN 5 5 TRACE GLE T VISIT FAMILY 40 [facility] HERNANDEZ - 5 5 [facility] T OFFICE 70409 FRANK MALEK SHE OUTPATIEN 5 5 TRACE T VISIT FAMILY 25 HEALTH MINUTES OFFICE 28591 FRANK MALEK SHE OUTPATIEN 5 5 TRACE T VISIT FAMILY 25 [facility] HERNANDEZ - 4 4 [facility] T EMERGENCY 44580 HERNANDEZ 4 4 [facility] T VISIT MODERATE SEVERITY EMERGENCY 27040 BREA BREA 4 4 MAR MAR [facility] T VISIT HIGH/URGE NT SEVERITY HOSPITAL HERNANDEZ - 4 4 [facility] T OFFICE 86523 FRANK HILARIA OUTPATIEN 4 4 TRACE GLE T VISIT 5 FAMILY MINUTES HEALTH OFFICE 13980 FRANK MALEK SHE OUTPATIEN 4 4 TRACE T VISIT FAMILY 25 HEALTH MINUTES OFFICE 77591 FRANK MALEK SHE OUTPATIEN 4 4 TRACE T VISIT FAMILY 25 [facility] HERNANDEZ - 4 4 [facility] T OFFICE 95434 FRANK MALEK SHE OUTPATIEN 4 4 TRACE T NEW 60 FAMILY MINUTES HEALTH EMERGENCY 14366 PORNOY PORNOY 4 4 [facility] T VISIT HIGH/URGE NT SEVERITY OFFICE 75113 [place] GISELL TAMANNA OUTPATIEN 4 4 PRIMARY T VISIT CARE 25 CENTER MINUTES HOSPITAL HERNANDEZ - 4 4 [facility] T OFFICE 42113 [place] IRIS OUTPATIEN 4 4 PRIMARY BET T VISIT CARE 15 CENTER MINUTES OFFICE 25398 [facility] OUT[facility] 4 4 [facility] LAR T NEW MINUTES HOSPITAL HERNANDEZ - 4 4 [facility] T OFFICE 82801 [place] IRIS OUTPATIEN 4 4 PRIMARY BET T VISIT CARE 15 CENTER MINUTES OFFICE 91688 [place] GISELL TAMANNA OUTPATIEN 4 4 PRIMARY T VISIT CARE 40 CENTER MINUTES OFFICE 12716 [place] POCZATEK OUTPATIEN 4 4 PRIMARY SABINE T VISIT CARE 25 CENTER MINUTES OFFICE 73681 [place] IRIS OUTPATIEN 4 4 PRIMARY BET T VISIT CARE 15 CENTER MINUTES OFFICE 86550 [place] CHELSIE OUTPATIEN 4 4 PRIMARY BALJIT T VISIT CARE 25 CENTER MINUTES [facility]OSPITAL [facility] - 3 3 [facility] OUTPATIEN [facility] T OFFICE 68285 [place] FLAKO OUTPATIEN 3 3 PRIMARY NAN T VISIT CARE 25 CENTER MINUTES OFFICE 36257 [place] STROUB OUTPATIEN 3 3 PRIMARY ALI T VISIT CARE 15 CENTER MINUTES OFFICE 09267 [place] IRIS OUTPATIEN 3 3 PRIMARY BET T VISIT CARE 25 CENTER MINUTES OFFICE 94412 PAWSAT PAWSAT OUTPATIEN 2 2 MAR MAR T NEW MINUTES OFFICE 99662 [place] [facility] OUTPATIEN 2 2 PRIMARY SABINE T VISIT CARE 15 CENTER MINUTES OFFICE 11276 [place] OUTPATIEN 2 2 PRIMARY T VISIT CARE 15 CENTER MINUTES OFFICE 74889 [place] OUTPATIEN 2 2 PRIMARY T VISIT CARE 15 CENTER MINUTES OFFICE 22087 [place] OUTPATIEN 2 2 PRIMARY T VISIT CARE 15 CENTER [facility] HERNANDEZ - 2 2 CO [facility] T OFFICE 22431 [place] OUTPATIEN 2 2 PRIMARY T VISIT CARE 15 CENTER MINUTES OFFICE 61568 [place] OUTPATIEN 2 2 PRIMARY T VISIT CARE 15 CENTER MINUTES OFFICE 16453 [place] IRIS OUTPATIEN 2 2 PRIMARY BET T VISIT CARE 15 CENTER MINUTES EMERGENCY 76052 MITZI CONNER DEPT 1 1 EMERGENCY III SABINE VISIT SERVICES HIGH SEVERITY& THREAT [facility] OFF[facility] 85624 [place] [facility] OUTPATIEN 1 1 PRIMARY SABINE T VISIT CARE 15 CENTER MINUTES OFFICE 86825 BARBARA SANCHEZ CONSULTAT [address] [facility] NEW/ESTAB DAMIEN PATIENT 60 MIN EMERGENCY 02434 MITZI FARMER DEPT 1 1 EMERGENCY GEORGINA VISIT SERVICES HIGH SEVERITY& THREAT [facility] OFFICE 84297 [place] LYUBOV OUTPATIEN 0 0 [facility] T VISIT HEART 15 MINUTES [facility] ST MALLORY - 0 0 MEDICAL OUTPATIEN [facility] DAVID - 9 9 [facility] OFFICE 52318 [place] KOMAL, OUTPATIEN 9 9 [place] NELIA T VISIT HEART PSC 15 MINUTES [facility] JESSICA - 9 9 [facility] 23516 FRANCINE HERRERA 9 9 CO HOSP LARIEN D ION NEW/ESTAB PATIENT 40 MIN EMERGENCY 49517 MITZI CORDERO DEPT 9 9 EMERGENCY BRIANA VISIT SERVICES A HIGH SEVERITY& ASSOCIATE THREAT S [facility] NAEWRGACE - 9 9 W [facility] NAEWGRACE - 9 9 W [facility] EMERGENCY 58904 MITZI JOHNSTON, DEPT 9 9 EMERGENCY LUCILLE L VISIT SERVICES HIGH SEVERITY& ASSOCIATE THREAT S [facility] OFFICE 45204 [place] KOMAL, CONSULTAT 9 9 [facility] NELIA ION HEART PSC NEW/ESTAB PATIENT 80 MIN EMERGENCY 64129 MITZI RODRIGUEZ, DEPT 9 9 EMERGENCY NELIA B VISIT SERVICES HIGH SEVERITY& ASSOCIATE THREAT S FUN EMERGENCY 09924 MITZI EDLEON 9 9 EMERGENCY , [facility] A T VISIT HIGH/URGE ASSOCIATE NT S SEVERITY EMERGENCY 68122 JESSICA 9 9 W [facility] VISIT [facility]ICAL [facility] SEVERITY HOSPITAL JESSICA - 9 9 W [facility] OFFICE 78844 ANEL CRUZ 9 9 ANTONIA ANTONIA E T VISIT EMD 15 MINUTES OFFICE 46958 ANEL CRUZ 8 8 [place]TONIA ANTONIA E T VISIT EMD 15 MINUTES [facility] [address] [facility] OUTPATIEN [facility] OFFICE 43282 ANEL CRUZ 8 8 ANTONIA ANTONIA E T VISIT EMD 15 MINUTES HOSPITAL [facility] - 8 8 [facility] OUTPATIEN [facility] T OFFICE 90630 ANEL CRUZ 8 8 ANTONIA ANTONIA E T VISIT EMD 15 MINUTES HOSPITAL [facility] - 8 8 [facility] OUTPATIEN [facility] T EMERGENCY [address] [facility] T VISIT LOW/MODER SEVERITY EMERGENCY 71603 [facility] PEREZ, 8 8 [facility] T VISIT PROF SERV MODERATE SEVERITY OFFICE 06557 ANEL CRUZ 8 8 ANTONIA ANTONIA E T VISIT EMD 15 MINUTES
--- OUTSIDE RECORDS SUMMARY | 2017-02-22 02:51 | External Medical Summary Rpt | CCD ---
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 AMBULANCE AMBULANCE BLS SERVICE SERVICE EMERGENCY TRANSPORT GROUND A0425 [facility] MILEAGE 6 AMBULANCE AMBULANCE [place] [address] FLAQUITO HUDDLESTON AMYLASE 6 [facility] INC INC BLOOD 92811 FLAQUITO HUDDLESTON COUNT 6 [facility] COMPLETE INC INC AUTO&AUTO DIFRNTL WBC COMPREHEN 16375 FLAQUITO HUDDLESTON SIVE 6 [facility] METABOLIC INC INC PANEL AMB A0427 [facility] SERVICE 6 AMBULANCE AMBULANCE ALS SERVICE SERVICE EMERGENCY TRANSPORT [place] [address] [place] [address] FLAQUITO HUDDLESTON LIPASE 6 [place] [address] [facility] OLIVEIRA ABDOMEN & 6 MEDICAL GITA PELVIS IMAGING W/O ASS CONTRAST MATERIAL DRUG 62714 COMBINED COMBINED [place] 6 PHYSICIAN PHYSICIAN VALPROIC S LA S LA DIPROPYLA CETIC ACID TOTAL LIPOPROTE 18729 [facility] IN DIR 5 TRACE GLE [facility] D[facility] CHOLESTER OL GONADOTRO 86223 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 PIN 5 PATTIE PATTIE LUTEINIZI [place] [address] 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 ESTRADIOL 5 PATTIE PATTIE HOLDINGS HOLDINGS GONADOTRO 26395 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 PIN 5 PATTIE PATTIE FOLLICLE HOLDINGS HOLDINGS STIMULATI NG HORMONE CULTURE 27214 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 BACTERIAL 5 PATTIE PATTIE HOLDINGS HOLDINGS QUANTTATI VE COLONY COUNT URINE GENERAL 12710 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 HEALTH 5 PATTIE PATTIE PANEL HOLDINGS HOLDINGS HEMOGLOBI 99075 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 N 5 PATTIE PATTIE GLYCOSYLA HOLDINGS HOLDINGS KASEY A1C 25 07687 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 HYDROXY 5 PATTIE PATTIE INCLUDES HOLDINGS HOLDINGS FRACTIONS IF PERFORMED LIPID 64929 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 PANEL 5 PATTIE PATTIE HOLDINGS HOLDINGS AMB A0427 [facility] SERVICE 5 AMBULANCE AMBULANCE ALS SERVICE SERVICE EMERGENCY TRANSPORT LEVEL 1 GROUND A0425 [facility] AMBULANCE PER SERVICE SERVICE STATUTE MILE ECG 57203 GARCE NORTON NORTON GRACE ROUTINE 5 ECG CONSULTIN W/LEAST G SERV 12 LDS I&R ONLY INITIAL 10343 TAM TAM INPATIENT 5 KAROL IGN KAROL IGN CONSULT NEW/ESTAB PT 80 MIN INITIAL 37575 [facility] TRACE GLE FACILITY FAMILY CARE/DAY HEALTH 45 MINUTES LIPOPROTE 73834 [facility] IN DIR 5 TRACE GLE [facility]ORE H[facility]ILY [place]ENSITY [place]STER [place] 25 [address]171 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 HYDROXY 5 PATTIE PATTIE INCLUDES HOLDINGS HOLDINGS FRACTIONS IF PERFORMED HEMOGLOBI 26178 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 N 5 PATTIE PATTIE GLYCOSYLA HOLDINGS HOLDINGS KASEY A1C GENERAL 98725 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 HEALTH 5 PATTIE PATTIE PANEL HOLDINGS HOLDINGS LIPID 50154 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 PANEL 5 PATTIE PATTIE HOLDINGS HOLDINGS ECG 11078 [facility] ROUTINE 5 TRACE GLE ECG FAMILY W/LEAST HEALTH 12 LDS W/I&R RADIOLOGI 99304 [facility] C EXAM 5 TRACE GLE CHEST 2 FAMILY VIEWS HEALTH FRONTAL&L [place]TERAL COLSC FLX 98723 DAVID HERNANDEZ 5 CO CO W/REMOVAL HOSPITAL HOSPITAL LESION BY HOT BX FORCEPS RINGERS J7120 DAVID HERNANDEZ LACTATE 5 CO CO INFUSION [facility] UP TO 1000 CC COLONOSCO 51092 [facility] PY 5 TRACE GLE W/BIOPSY FAMILY SINGLE/MU HEALTH LTIPLE COLSC FLX 54461 [facility] W/RMVL 5 TRACE GLE OF TUMOR FAMILY POLYP HEALTH LESION SNARE TQ ANES [address] [place] [address] AMERIPATH RENETTA SURG 5 [place] INC JAM PATHOLOGY GROSS&GEORGINA ROSCOPIC EXAM RADEX ABD 89524 [facility] COMPL 4 CHELSI AQT ABD RADIOLOGY W/S/E/D ASSOCIAT VIE[place] [address] [place] [address] DAVID HERNANDEZ ABDOMEN & 4 CO CO PELVIS [facility] W/O CONTRST 1/> [place] [address] [facility] ABDOMEN & 4 EIDER ANETA PELVIS RADIOLOGY W/CONTRAS ASSOCIAT T MATERIAL BRNCDILAT 77622 [facility] RSPSE 4 TRACE GLE SPMTRY FAMILY PRE&POST- HEALTH BRNCDILAT ADMN RADIOLOGI 52290 FRANK BAILEY SHE C EXAM 4 TRACE CHEST 2 FAMILY VIEWS HEALTH FRONTAL&[place] [address] [facility] S[facility] ABDOMINAL 4 INC - INC - REAL TIME W/IMAGE DOCUMENTA TION LIPOPROTE 04381 FRANK HILARIA IN DIR 4 TRACE GLE [facility] D[facility]ITY [facility] CHOLESTER OL ANES 04667 DAVID RUIZ UPPER GI [address] [place] [address] ENDOSCOPY [place] [address] AMERIPATH RENETTA SURG 4 [place] INC JAM PATHOLOGY GROSS&GEORGINA ROSCOPIC EXAM CUL BACT 36712 DAVID HERNANDEZ AEROBIC 4 CO CO [facility] METHS DEFINITIV E [place]OL EGD 92075 FRANK HILARIA TRANSORAL 4 TRACE GLE BIOPSY FAMILY SINGLE/MU HEALTH LTIPLE RINGERS J7120 DAVID HERNANDEZ LACTATE 4 CO CO INFUSION [facility] UP TO 1000 CC LIPID 75519 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 PANEL 4 PATTIE PATTIE HOLDINGS HOLDINGS GONADOTRO 53925 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 PIN 4 PATTIE PATTIE FOLLICLE HOLDINGS HOLDINGS STIMULATI NG HORMONE GENERAL 15001 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 HEALTH 4 PATTIE PATTIE PANEL HOLDINGS HOLDINGS HEMOGLOBI 49142 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 N 4 PATTIE PATTIE GLYCOSYLA HOLDINGS [place] [address] 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 FREE 4 PATTIE PATTIE THYROXINE HOLDINGS HOLDINGS 25 75259 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 HYDROXY 4 PATTIE PATTIE INCLUDES HOLDINGS HOLDINGS FRACTIONS IF PERFORMED GONADOTRO 55305 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 PIN 4 PATTIE PATTIE LUTEINIZI HOLDINGS HOLDINGS NG HORMONE INJECTION J0696 FRANK MALEK SHE 4 TRACE CEFTRIAXO FAMILY NE [facility] PER 250 MG RADIOLOGI 81132 [facility] C EXAM 4 EIDER ANETA CHEST 2 RADIOLOGY VIEWS ASSOCIAT FRONTAL&L ATERAL NONEMERG A0120 [facility] COMPTRAN TRNSPRT: 4 [facility] ACT AREA/OTH SYS NONEMERG A0120 [facility] COMPTRAN TRNSPRT: 4 [facility] ACT AREA/OTH SYS NONEMERG A0120 [facility] TRNSPRT: [facility]OTH SYS NONEMERG A0120 [facility]TRAN TRNSPRT: 4 [facility] ACT AREA/OTH SYS NONEMERG A0120 [facility]TRAN TRNSPRT: 4 [facility] ACT AREA/OTH SYS NONEMERG A0120 [facility] TRNSPRT: 4 [facility] ACT AREA/OTH SYS NONEMERG A0120 [facility]TRAN TRNSPRT: 4 [facility] ACT AREA/OTH SYS NONEMERG A0120 [facility] TRNSPRT: 4 [facility] ACT AREA/OTH SYS NONEMERG A0120 [facility] TRNSPRT: 4 [facility] ACT AREA/OTH SYS NONEMERG A0120 [facility]TRAN TRNSPRT: 4 [facility] ACT AREA/OTH SYS NONEMERG A0120 [facility]TRAN TRNSPRT: 4 [facility] ACT AREA/OTH SYS NONEMERG A0120 [facility] TRNSPRT: 4 [facility] ACT AREA/OTH SYS NONEMERG A0120 [facility]TRAN TRNSPRT: 4 [facility] ACT AREA/OTH SYS NONEMERG A0120 [facility]TRAN TRNSPRT: 4 [facility] ACT AREA/OTH SYS NONEMERG A0120 [facility]TRAN TRNSPRT: 4 [facility] ACT AREA/OTH SYS NONEMERG A0120 [facility]TRAN TRNSPRT: 4 [facility] ACT AREA/OTH SYS NONEMERG A0120 [facility]TRAN TRNSPRT: 4 [facility] ACT AREA/OTH SYS NONEMERG A0120 [facility] COMPTRAN TRNSPRT: 4 [facility] ACT AREA/OTH SYS NONEMERG A0120 [facility] COMPTRAN TRNSPRT: 4 [facility] ACT ARE[facility]/OTH SYS NONEMERG A0120 [facility] COMPTRAN TRNSPRT: 4 [facility] ACT AREA/OTH SYS COLLECTIO 20768 TAYLOR JAMESON TAMANNA N VENOUS 4 PRIMARY BLOOD CARE [facility] [place] [address] 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 TESTOSTER 4 PATTIE PATTIE [place] [address] 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 TESTOSTER 4 PATTIE PATTIE ONE FREE HOLDINGS HOLDINGS NONEMERG A0120 [facility] COMPTRAN TRNSPRT: 4 [facility] MTN ACT AREA/OTH SYS NONEMERG A0120 [facility]TRAN TRNSPRT: 4 [facility] ARE[facility]/OTH SYS NONEMERG A0120 [facility] TRNSPRT: 4 [facility] ACT AREA/OTH SYS NONEMERG A0120 [facility]TRAN TRNSPRT: 4 [facility] MTN ACT AREA/OTH SYS NONEMERG A0120 [facility]TRAN TRNSPRT: 4 [facility] ARE[facility]/OTH SYS NONEMERG A0120 [facility]TRAN TRNSPRT: 4 [facility] ACT AREA/OTH SYS NONEMERG A0120 [facility]TRAN TRNSPRT: 4 [facility] ACT AREA/OTH SYS NONEMERG A0120 [facility]TRAN TRNSPRT: 4 [facility] ACT AREA/OTH SYS NONEMERG A0120 [facility]TRAN TRNSPRT: 4 [facility] ACT AREA/OTH SYS NONEMERG A0120 [facility] COMPTRAN TRNSPRT: 4 [facility] MTN ACT AREA/OTH SYS NONEMERG A0120 [facility]TRAN TRNSPRT: 4 [facility] ACT AREA/OTH SYS NONEMERG A0120 [facility] TRNSPRT: 4 [facility] ACT AREA/OTH SYS HEMORRHOI 06253 DAVID CHARO DECTOMY 4 CO HOSP LAR INTERNAL RUBBER BAND LIGATIONS COLONOSCO 21014 DAVID HERNANDEZ PY 4 CO CO W/BIOPSY [facility] SINGLE/MU LTIPLE RINGERS J7120 HRENANDEZDEMAR HERNANDEZ LACTATE 4 CO CO INFUSION [facility] UP TO 1000 CC INJECTION J1885 HERNANDEZDEMAR HERNANDEZ 4 CO CO KETOROLAC [facility] TROMETHAM INE PER 15 MG INJECTION J3010 HERNANDEZDEMAR HERNANDEZ FENTANYL 4 CO CO CITRATE [facility] 0.1 MG INJECTION J3360 HERNANDEZDEMAR HERNANDEZ DIAZEPAM 4 CO CO UP TO 5 [place] [address] HERNANDEZ HERNANDEZ SURG 4 CO CO PATHOLOGY [facility] GROSS&GEORGINA ROSCOPIC EXAM INJECTION J2405 DAVID HERNANDEZ 4 CO CO [facility] ON HCL PER 1 MG ANESTHESI 27774 HERNANDEZ HERNANDEZ A 4 CO CO ANORECTAL [facility] PROCEDURE NONEMERG A0120 [facility] TRNSPRT: 4 [facility] ACT AREA/OTH SYS NONEMERG A0120 [facility] TRNSPRT: 4 [facility] ARE[facility]/OTH SYS NONEMERG A0120 [facility] TRNSPRT: 4 [facility] ACT AREA/OTH SYS NONEMERG A0120 [facility]TRAN TRNSPRT: 4 [facility] ACT AREA/OTH SYS NONEMERG A0120 [facility] TRNSPRT: 4 [facility] ACT AREA/OTH SYS NONEMERG A0120 [facility] TRNSPRT: 4 [facility] ACT AREA/OTH SYS NONEMERG A0120 [facility] TRNSPRT: 4 [facility] ACT AREA/OT SYS NONEMERG A0120 [facility]TRAN TRNSPRT: 4 [facility] ACT AREA/OT SYS NONEMERG A0120 [facility]TRAN TRNSPRT: 4 [facility] ARE[facility] SYS SCREENING G0202 DAVID HERNANDEZ 4 CO CO [facility] HY JOSI INCL CAD WHEN PERFORMD ELECTROLY 11761 [facility] TE PANEL 4 DIAGNOSTI DIAGNOSTI CS CS INCORPORA T COMPUTER- 26216 DAVID HERNANDEZ AIDED 4 CO CO DETECTION [facility] SCREENING MAMMOGRAP HY LIPID 14706 [facility] PANEL 4 DIAGNOSTI DIAGNOSTI CS CS INCORPORA T TRANSFERA 16664 [facility] SE 4 DIAGNOSTI DIAGNOSTI ASPARTATE CS CS AMINO INCORPORA AST SGOT T TRANSFERA 93206 [facility] SE 4 DIAGNOSTI DIAGNOSTI ALANINE CS [place] [address] [facility] UREA 4 DIAGNOSTI DIAGNOSTI NITROGEN CS [place] [address] [facility] PHOSPHATA 4 DIAGNOSTI DIAGNOSTI SE CS CS ALKALINE INCORPORA T CREATININ 53530 [facility] E BLOOD 4 DIAGNOSTI DIAGNOSTI CS CS INCORPORA T BILIRUBIN 36761 [facility] TOTAL 4 DIAGNOSTI DIAGNOSTI CS CS INCORPORA T CALCIUM 35109 [facility] TOTAL 4 DIAGNOSTI DIAGNOSTI CS CS INCORPORA T PROTEIN 02363 [facility] XCPT 4 DIAGNOSTI DIAGNOSTI REFRACTOM CS CS ETRY INCORPORA SERUM T PLASMA/WH L BLD ALBUMIN 54872 [facility] SERUM 4 DIAGNOSTI DIAGNOSTI PLASMA/WH CS CS OLE BLOOD INCORPORA T BLOOD 17163 [facility] COUNT 4 DIAGNOSTI DIAGNOSTI COMPLETE CS CS AUTO&AUTO INCORPORA DIFRNTL T WBC NONEMERG A0120 [facility] TRNSPRT: 4 [facility] ACT AREA/OTH SYS NONEMERG A0120 [facility] TRNSPRT: 4 [facility] ACT AREA/OTH SYS NONEMERG A0120 [facility] TRNSPRT: 4 [facility] ACT AREA/OTH SYS NONEMERG A0120 [facility] TRNSPRT: 4 [facility] ACT AREA/OTH SYS NONEMERG A0120 [facility] TRNSPRT: 4 [facility] ACT AREA/OTH SYS NONEMERG A0120 [facility] TRNSPRT: 4 [facility] AREA/OTH SYS CYTP C/V 64388 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 AUTO THIN 4 Y JOSE JUAN OF Y JOSE JUAN OF LYR PATTIE PATTIE PREPJ SCR H H MNL RESCR PHYS NONEMERG A0120 [facility] TRNSPRT: 4 [facility] ACT AREA/OTH SYS NONEMERG A0120 [facility] TRNSPRT: 4 [facility] ACT AREA/OTH SYS NONEMERG A0120 [facility] TRNSPRT: 4 [facility] ACT AREA/OTH SYS NONEMERG A0120 [facility] TRNSPRT: 4 [facility] ACT AREA/OTH SYS NONEMERG A0120 [facility]TRAN TRNSPRT: 4 [facility] ACT AREA/OTH SYS NONEMERG A0120 [facility]TRAN TRNSPRT: 4 [facility] AREA/OTH SYS NONEMERG A0120 [facility] TRNSPRT: 4 [facility] ARE[facility]/OTH SYS FUNDUS 03574 ETHAN LONG PHOTOGRAP 4 CARIDAD CARIDAD HY W/INTERPR ETATION & REPORT OPHTH 29418 ETHAN LONG MEDICAL 4 CARIDAD CARIDAD XM&EVAL COMPRE NEW PT 1/> VST NONEMERG A0120 [facility] TRNSPRT: 4 [facility] MTN ACT AREA/OTH SYS NONEMERG A0120 [facility]TRAN TRNSPRT: 4 [facility] MTN ACT AREA/OTH SYS NONEMERG A0120 [facility] TRNSPRT: 4 [facility] ACT AREA/OTH SYS NONEMERG A0120 [facility] TRNSPRT: 4 [facility] ACT AREA/OTH SYS NONEMERG A0120 [facility] TRNSPRT: 4 [facility] ACT AREA/OTH SYS NONEMERG A0120 [facility] TRNSPRT: 4 [facility] ACT AREA/OTH SYS NONEMERG A0120 [facility] TRNSPRT: 4 [facility] ACT AREA/OTH SYS NONEMERG A0120 [facility] TRNSPRT: 4 [facility] ACT AREA/OTH SYS NONEMERG A0120 [facility] TRNSPRT: 4 [facility] ACT AREA/OTH SYS NONEMERG A0120 [facility] TRNSPRT: 4 [facility] ACT AREA/OTH SYS NONEMERG A0120 [facility] TRNSPRT: 4 [facility] ACT AREA/OTH SYS NONEMERG A0120 [facility] TRNSPRT: 4 [facility] ACT AREA/OTH SYS NONEMERG A0120 [facility] TRNSPRT: 4 [facility] ACT AREA/OTH SYS LIPID 83274 FLAQUITO HUDDLESTON PANEL 3 [facility] INC INC BILIRUBIN 89311 FLAQUITO HUDDLESTON DIRECT 3 [facility] INC INC COMPREHEN 40238 FLAQUITO HUDDLESTON SIVE 3 [facility] METABOLIC INC INC PANEL IIV4 VACC 18997 MARY ELLEN HYDE PRESRV 3 CO CO FREE 0.5 HEALTH HEALTH ML FOR IM DEPARTME DEPARTME USE SBSQ 84847 [facility] 3 CARE/DAY 15 MINUTES INITIAL 67037 [facility] INPATIENT 3 CONSULT NEW/ESTAB PT 20 MIN ECG 06067 GRACE NORTON NORTON GRACE ROUTINE 3 MD ECG CONSULTIN W/LEAST G SERV 12 LDS I&R ONLY NONEMERG A0120 [facility] TRNSPRT: 3 [facility] ACT AREA/OTH SYS RADIOLOGI [address] [facility] EXAM 3 GARTH AGRTH CHEST 2 VIEWS PHYSICIAN PHYSICIAN FRONTAL&L S SEPTEMBER S SEPTEMBER ATERAL NONEMERG A0120 [facility] TRNSPRT: 3 [facility] ACT AREA/OTH SYS NONEMERG A0120 [facility] TRNSPRT: 3 [facility] ACT AREA/OTH SYS NONEMERG A0120 [facility] TRNSPRT: 3 [facility] ACT AREA/OTH SYS NONEMERG A0120 [facility] TRNSPRT: 3 [facility] ACT AREA/OTH SYS NONEMERG [...] MINI-BUS ACTION MTN AREA/OTH SYS NONEMERG A0120 [facility] COMPTRAN TRNSPRT: 3 [facility] [...] MINI-BUS ACTION MTN AREA/OTH SYS NONEMERG A0120 [facility] COMPTRAN TRNSPRT: 3 [facility] [...] MINI-BUS ACTION MTN AREA/OTH SYS NONEMERG A0120 [facility] COMPTRAN TRNSPRT: 3 [facility] MTN AREA/OTH SYS ADMN SET A7003 YOUR YOUR SM VOL 3 [facility] P[facility] NEBULIZR DISPBL NONEMERG A0120 [facility]TRAN TRNSPRT: 3 [facility] MTN AREA/OTH SYS NONEMERG A0120 [facility]TRAN TRNSPRT: 3 [facility] MTN AREA/OTH SYS NONEMERG A0120 [facility]TRAN TRNSPRT: 3 [facility] MTN AREA/OTH SYS ECG [address] [facility] KATHLEEN ROUTINE 3 DONNA III J ECG CARDIOLOG W/LEAST Y CLINIC 12 LDS I&R ONLY NONEMERG A0120 [facility] TRNSPRT: 3 [facility] MTN AREA/OTH SYS NONEMERG A0120 [facility]TRAN TRNSPRT: 2 [facility] MTN AREA/OTH SYS DEBRIDEME 38113 PAWSAT PAWSAT NT NAIL 2 Jul ANY METHOD 6/> NONEMERG A0120 [facility] COMPTRAN TRNSPRT: 2 [facility] MTN AREA/OTH SYS NONEMERG A0120 [facility] COMPTRAN TRNSPRT: 2 [facility]ITY [facility] ACTION MTN AREA/OTH SYS NONEMERG A0120 [facility] COMPTRAN TRNSPRT: 2 [facility] ACTION MTN AREA/OTH SYS NONEMERG A0120 [facility] COMPTRAN TRNSPRT: 2 [facility] MTN AREA/OTH SYS NONEMERG A0120 [facility] COMPTRAN TRNSPRT: 2 [facility] MTN AREA/OTH SYS NONEMERG A0120 [facility] COMPTRAN TRNSPRT: 2 [facility] MTN AREA/OTH SYS NONEMERG A0120 [facility] COMPTRAN TRNSPRT: 2 [facility]ITY [facility] MTN AREA/OTH SYS ADMN SET A7003 YOUR YOUR SM VOL 2 PHARMACY [facility] PNEUMAT NEBULIZR DISPBL NONEMERG A0120 [facility] COMPTRAN TRNSPRT: 2 COMMUNITY [facility] [...] COMMUNITY [facility] ACTION MTN AREA/OTH SYS CULTURE 40505 [facility] BACTERIAL 2 DIAGNOSTI DIAGNOSTI CS CS QUANTTATI VE COLONY COUNT URINE ADMN SET A7003 YOUR YOUR SM VOL 2 PHARMACY [facility] PNEUMAT NEBULIZR DISPBL NONEMERG A0120 LK COMPTRAN [...] COMMUNITY [facility] ACTION MTN AREA/OTH SYS LIPID 97382 [facility] PANEL 2 DIAGNOSTI DIAGNOSTI CS CS GENERAL 76641 [facility] 2 DIAGNOST[place] [address] [facility] FREE 2 DIAGNOSTI DIAGNOSTI THYROXINE CS CS 25 01723 [facility] HYDROXY 2 DIAGNOSTI DIAGNOSTI INCLUDES [...] PHARMACY [facility] [facility] PNEUMAT NEBULIZR DISPBL [facility]- 479[address] DAVID HERNANDEZ AIDED 2 [facility] SCREENING MAMMOGRAP HY NONEMERG A0120 [facility] COMPTRAN TRNSPRT: 2 COMMUNITY [facility] ACTION MTN AREA/OTH SYS SCREENING G0202 [facility] 2 [facility] CO [facility] HY JOSI INCL CAD WHEN [...] YOUR YOUR SM VOL 1 PHARMACY PHARMACY [facility] PNEUMAT NEBULIZR DISPBL NEBULIZER E0570 MARIAH MARIAH WITH 1 HOME [facility] R EQUIPME EQUIPME RADIOLOGI 58579 [place] LEANDRA C EXAM 1 MEDICAL NATALIE CHEST 2 IMAGING VIEWS ASS FRONTAL&L ATERAL LIPID 31836 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 PANEL 1 Y & Y & BIODIAGNO BIODIAGNO STICS STICS CYANOCOBA 66454 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 PETERSON 1 Y & Y & VITAMIN BIODIAGNO BIODIAGNO B-12 STICS STICS 25 21690 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 HYDROXY 1 Y & Y & INCLUDES BIODIAGNO BIODIAGNO FRACTIONS STICS STICS IF PERFORMED COLLECTIO 69694 [facility] N VENOUS 1 [facility] [place] [address] 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 FREE 1 Y & Y & THYROXINE BIODIAGNO BIODIAGNO STICS STICS GENERAL 94575 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 HEALTH 1 Y & Y & PANEL BIODIAG[place] [address] 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 TRIIODOTH 1 Y & Y & YRONINE BIODIAGNO BIODIAGNO T3 FREE STICS STICS IIV3 40363 FLAQUITO FLAQUITO VACCINE 1 [facility] VIRUS 0.5 ML DOSAGE IM USE ALS A0398 [facility] ROUTINE 1 AMBULANCE AMBULANCE DISPOSABL SERVICE SERVICE E SUPPLIES GROUND A0425 [facility] MILEAGE 1 AMBULANCE AMBULANCE PER SERVICE SERVICE STATUTE MILE AMB A0427 [facility] SERVICE 1 AMBULANCE AMBULANCE ALS SERVICE SERVICE EMERGENCY TRANSPORT LEVEL 1 AMB A0422 [facility] OXYGEN&O2 1 AMBULANCE AMBULANCE SUPPLIES SERVICE SERVICE LIFE SUSTAININ G SITUATION LIPID 55641 COMBINED COMBINED PANEL 1 PHYSICIAN PHYSICIAN S [place] COMPREHEN 05969 COMBINED COMBINED SIVE 1 PHYSICIAN PHYSICIAN METABOLIC S LA S LA PANEL HEMOGLOBI 98214 COMBINED COMBINED N 1 PHYSICIAN PHYSICIAN GLYCOSYLA S LA S LA KSAEY A1C BLOOD 59191 COMBINED COMBINED COUNT 1 PHYSICIAN PHYSICIAN COMPLETE S LA S LA AUTO&AUTO DIFRNTL WBC URNLS DIP 65046 COMBINED COMBINED 1 PHYSICIAN PHYSICIAN STICK/TAB S LA S LA LET REAGENT AUTO MICROSCOP Y IIV3 41664 FLAQUITO FELDERON VACCINE 0 [facility] VIRUS 0.5 ML DOSAGE IM USE OPHTH 60958 [facility] 0 VISION ANG XM&EVAL COMPRHNSV ESTAB PT 1/> BLOOD 86267 COMBINED COMBINED COUNT 0 PHYSICIAN PHYSICIAN COMPLETE S LAB S LAB AUTO&AUTO DIFRNTL WBC BASIC 89023 COMBINED COMBINED METABOLIC 0 PHYSICIAN PHYSICIAN PANEL S LAB S LAB CALCIUM TOTAL BLOOD 61219 [facility] COUNT 0 MED LAB MED LAB COMPLETE AUTO&AUTO DIFRNTL WBC BLOOD 79019 [facility] COUNT 0 MED LAB MED LAB COMPLETE AUTOMATED BLOOD 30488 [facility] COUNT 0 MED LAB MED LAB SMEAR MCRSCP W/MNL DIFRNTL WBC COUNT SBSQ 47899 CALLIE, CALLIE, NURSING 0 AMANDA M AMANDA M FACIL CARE/DAY MINOR COMPLJ 15 MIN BASIC 61687 [facility] METABOLIC 0 MED LAB MED LAB PANEL CALCIUM TOTAL BLOOD 17803 [facility] COUNT 0 MED LAB MED LAB COMPLETE AUTO&AUTO DIFRNTL WBC BLOOD 77938 [facility] COUNT 0 MED LAB MED LAB COMPLETE AUTO&AUTO DIFRNTL WBC SBSQ 97125 CALLIE, CALLIE, NURSING 0 AMANDA M AMANDA M FACIL CARE/DAY MINOR COMPLJ 15 MIN URNLS DIP 11539 [facility] 0 MED LAB MED LAB STICK/TAB LET REAGENT AUTO MICROSCOP Y INFUSION J7050 [facility] NORMAL 9 CO CO SALINE [facility] SOLUTION 250 CC ALBUTEROL J7613 [facility] INHAL 9 CO CO NON-CP [facility] PROD THRU DME U DOSE 1 MG INJECTION J2060 [facility] 9 CO CO LORAZEPAM [facility] 2 MG MAMMOGRAP 77696 [facility] HY 9 CO CO UNILATERA [facility] L BASIC 26270 [facility] METABOLIC 9 MED LAB MED LAB PANEL CALCIUM TOTAL BLOOD 09683 [facility] COUNT 9 MED LAB MED LAB COMPLETE AUTO&AUTO DIFRNTL WBC BLOOD 44180 [facility] COUNT 9 MED LAB MED LAB COMPLETE AUTO&AUTO DIFRNTL WBC BLOOD 07018 [facility] COUNT 9 MED LAB MED LAB COMPLETE AUTO&AUTO DIFRNTL WBC URNLS DIP 06314 [facility] 9 MED LAB MED LAB STICK/TAB LET REAGENT AUTO MICROSCOP Y BASIC 32618 [facility] METABOLIC 9 MED LAB MED LAB PANEL CALCIUM TOTAL L HRT 25685 JESSICA JONESASHLEY CATHETERI 9 W W ZATION [facility] RETROGRAD MEDICAL MEDICAL E CENTER CENTER BRACHIAL PERQ PLCMT [id number] MEADOWVIE MEAWVIE OCCL DEVC 9 W W [facility] ELIAS/ART [facility] POST CENTER CENTER SURG/INTR VNL PROC INJECTION 39604 JOSIANE SAUCEDA, CARDIAC 9 [place] [place] CATHJ L HEART PSC VENTR/[place] [address] ROBERTASHLEY LOPEZ C-CATHJ 9 W W F/SLCTV C [facility] I SI&R 70397 JESSICA SONIWVIE F/NJX PX 9 W W DURING [facility] C-CATH MEDICAL MEDICAL VENTR&/AT CENTER CENTER R [facility] I SI&R 33194 JOSIANE SAUCEDA, F/NJX PX 9 [place] DURING HEART PSC C-CATHJ PULM&/OR SELECT BASIC 89805 [facility] METABOLIC 9 MED LAB MED LAB PANEL CALCIUM TOTAL BLOOD 03470 [facility] COUNT 9 MED LAB MED LAB COMPLETE AUTO&AUTO DIFRNTL WBC MYOCRD 20848 JOSIANE SAUCEDA, PRFUJ STD 9 [place] WALL HEART PSC MOTION QUAL/YINKA STD MYOCRD 33595 JOSIANE SAUCEDA, PRFUJ IMG 9 [facility] TOMOG HEART PSC SPECT CHIEF SALES OFFICER STD CV STRS 20004 JOSIANE SAUCEDA, TST 9 [place] XERS&/OR HEART PSC RX CONT ECG W/SI&R THER 56154 JOSIANE SAUCEDA, PROPH/DX 9 [place] NJX IV HEART PSC PUSH SINGLE/1S T SBST/DRUG MYOCRD 99720 JOSIANE SAUCEDA, PRFUJ STD 9 [place] EJEC FXJ HEART PSC PRESSURIZ 25462 JOSIANE SAUCEDA, ED/NONPRE 9 [facility] SSURIZED HEART PSC INHALATIO N TREATMENT CV STRS 27631 [place] LYUBOV TST 9 VAL[place] N, XERS&/OR HEART PSC RAGHURAMA RX CONT N ECG W/SI&R BLOOD 08858 [facility] COUNT 9 MED LAB MED LAB COMPLETE AUTO&AUTO DIFRNTL WBC AMBULANCE A0429 [facility] SERVICE 9 EMS [facility] Universal Devices [facility] TRANSPORT GROUND A0425 [facility] MILEAGE 9 EMS [facility] EMS [facility] STATUTE MILE SBSQ 37755 CALLIE LEDESMA, NURSING 9 AMANDA M AMANDA M FACIL CARE/DAY NEW PROBLEM 25 MIN US BREAST 52765 [employer] 9 LELA S TIME RADIOLOGY W/IMAGE DOCUMENTA ASSOCIATE TION S PSC MAMMOGRAP 91933 [facility] 9 LELA S UNILATERA RADIOLOGY L ASSOCIATE S PSC SCREENING 68550 JESSICA LOPEZ 9 W W MAMMOGRAP REGIONAL [facility] 98740 [facility] SIVE 9 MED LAB MED LAB METABOLIC PANEL BLOOD 65893 [facility] COUNT 9 MED LAB MED LAB COMPLETE AUTO&AUTO DIFRNTL WBC L HRT 43523 [place] GABRIELLA, CATHETERI 9 [place] GERRY R ZATION HEART [place] [address] [facility] ANGIOGRAP 9 [place], HY CHEST RADIOLOGY CIRO W/CONTRAS K T/NONCONT ASSOCIATE RAST S PSC RADIOLOGI 41556 [facility] C 9 [place], EXAMINATI RADIOLOGY CIRO ON CHEST K SINGLE ASSOCIATE VIEW S PSC FRONTAL INJECTION 68269 [facility] 9 [facility] GERRY R CATHJ L HEART PSC VENTR/L ATR ANGIOGRAP H I SI&R 77162 JOSIANE QUIROZ, F/NJX PX 9 [place] GERRY R DURING HEART PSC C-CATHJ VENTR&/[place] [address] JOSIANE QUIROZ, C-CATHJ 9 [place] GERRY R F/SLCTV C HEART PSC ANGRPH I SI&R 66135 JOSIANE QUIROZ, F/NJX PX 9 [facility] R DURING HEART PSC C-CATHJ PULM&/OR SELECT ECG 75717 [place] KOMAL, ROUTINE 9 [place] ECG HEART PSC W/LEAST 12 LDS W/I&R ECG 52161 CARDIOLOG [place], ROUTINE 9 Y DYLAN A ECG ASSOCIATE W/LEAST S OF 12 LDS [place] I&R ONLY ECHO 07153 JOSIANE QUIROZ, TTHRC R-T 9 [place] GERRY R 2D HEART PSC W/WOM-MOD E COMPL SPEC&COLR D RADIOLOGI 59104 SAGINAWVilma GARCIA EXAM 9 LELA S CHEST 2 RADIOLOGY VIEWS FRONTAL&L ASSOCIATE ATERAL S PSC RADIOLOGI 30295 ANDREWS Vilma OWEN EXAM 9 LELA S CHEST 2 RADIOLOGY VIEWS FRONTAL&L ASSOCIATE ATERAL S PSC THERAPEUT 76976 MEADOWVIE MEADOWVIE IC 9 W W INJECTION REGIONAL REGIONAL IV PUSH MEDICAL MEDICAL [facility] DRUG THER 87674 MEADOWVIE MEADOWVIE PROPH/DX 9 W W NJX IV [facility] SINGLE/1S CENTER CENTER T SBST/[place] [address] MEADOWVIE MEADOWVIE INFUSION 9 W W HYDRATION REGIONAL [facility] INITIAL MEDICAL MEDICAL 31 MIN-1 CENTER CENTER HOUR COMPREHEN 56910 MEADOWVIE MEADOWVIE SIVE 9 W W METABOLIC REGIONAL [facility] PANEL MEDICAL MEDICAL [facility] COLLECTIO 09153 MEADOWVIE MEADOWVIE N VENOUS 9 W W BLOOD [facility] VENIPUNCT MEDICAL MEDICAL [facility] C[facility] BLOOD 06321 MEADOWVIE MEADOWVIE COUNT 9 W W COMPLETE [facility] AUTO&AUTO MEDICAL MEDICAL DIFRNTL [facility] WBC URNLS DIP 62780 MEADOWVIE MEADOWVIE 9 W W STICK/TAB REGIONAL [facility] MEDICAL MEDICAL REAGENT CENTER CENTER AUTO MICROSCOP Y SBSQ 67905 [facility] 9 [facility] CARE/DAY 15 MINUTES SBSQ 81346 [facility] 9 MICKI MICKI CARE/DAY 15 MINUTES INITIAL 80836 OSWALDO CHACON, INPATIENT 9 MICKI MICKI CONSULT NEW/ESTAB PT 20 MIN ECG 44412 CARDIOLOG [place], ROUTINE 9 Y DYLAN A [...] MEDICAL PNEUMAT EQUIPMENT EQUIPMENT NEBULIZR DISPBL LIPID 38523 [facility] PANEL 8 [facility] INC INC BASIC 56629 [facility] METABOLIC 8 [facility] PANEL INC INC CALCIUM TOTAL TRANSFERA 82574 [facility] SE 8 [facility] ALANINE INC INC AMINO ALT SGPT IIV3 60333 DHS/CO HYDE VACCINE 8 HEALTH CO SPLIT [...] MEDICAL PNEUMATIC EQUIPMENT EQUIPMENT NEBULIZER DISPBL LIPID 50331 [facility] PANEL 8 [facility] INC INC TRANSFERA 99733 [facility] SE 8 [facility] ALANINE INC INC AMINO ALT SGPT BASIC 16070 [facility] METABOLIC 8 [facility] PANEL INC INC CALCIUM [...] MEDICAL PNEUMAT EQUIPMENT EQUIPMENT NEBULIZR DISPBL OPHTH 46072 BENNETT, BENNETT, MEDICAL 8 MARQUES A MARQUES A XM&EVAL COMPRE NEW PT 1/> VST ECG 18892 CARDIOLOG [place], ROUTINE 8 Y DYLAN A ECG ASSOCIATE W/LEAST S OF 12 LDS [place] I&R ONLY [place] NFS 51551 [facility] THER 8 [facility] PROPH/DX INC INC 1ST >1 HR BASIC 13020 [facility] METABOLIC 8 [facility] PANEL INC INC CALCIUM TOTAL BLOOD 33466 [facility] COUNT 8 [facility] COMPLETE INC INC AUTO&AUTO DIFRNTL WBC ADMN SET A7003 [place] SM VOL 8 HOME HOME NONFILTR MEDICAL MEDICAL PNEUMAT EQUIPMENT EQUIPMENT NEBULIZR DISPBL SMALL A7004 [place] VOLUME 8 HOME HOME NONFILTR MEDICAL MEDICAL PNEUMATIC EQUIPMENT EQUIPMENT NEBULIZER DISPBL Encounters Encounter Start End Date Code Location Performer Type Date EMERGENCY 03906 KATE TADEO DEPT 7 7 PHYSICIAN VISIT S, PLLC HIGH SEVERITY& THREAT FUN OFFICE 42135 [facility] MOHINDER TOD OUTPATIEN 6 6 PHYSICIAN T VISIT S GROUP 10 MINUTES OFFICE 25245 BERTHA STONE OUTPATIEN 6 6 CHELSI CHELSI T VISIT 15 MINUTES [facility] - 6 6 [facility] OUTPATIEN INC T OFFICE 81943 [facility] MOHINDER TOD OUTPATIEN 6 6 PHYSICIAN T VISIT S GROUP 10 MINUTES OFFICE 68137 [facility] JOSE MIGUEL JR OUTPATIEN 6 6 PHYSICIAN WOOD T VISIT S GROUP 15 MINUTES OFFICE 90257 [facility] MOHINDER TOD OUTPATIEN 6 6 PHYSICIAN T VISIT S GROUP 15 MINUTES OFFICE 26635 [facility] MOHINDER TOD OUTPATIEN 6 6 PHYSICIAN T VISIT S GROUP 25 MINUTES [facility] - 6 6 [facility] OUTPATIEN INC T [facility] - 6 6 [facility] OUTPATIEN INC T OFFICE 11453 [facility] MOHINDER TOD OUTPATIEN 6 6 PHYSICIAN T NEW 45 S GROUP MINUTES [facility] - 6 6 [facility] OUTPATIEN INC T EMERGENCY 03388 KATE SAMUELS 6 6 PHYSICIAN MERNA Fitzpatrick PLLC T VISIT HIGH/URGE NT SEVERITY [facility] - 6 6 [facility] OUTPATIEN INC T EMERGENCY 72919 [facility] 6 6 [facility] DEPARTMEN INC T VISIT MODERATE SEVERITY [facility] - 6 6 [facility] OUTPATIEN INC T EMERGENCY 14512 KATE FARMER 6 6 PHYSICIAN GEORGINA Fitzpatrick PLL[facility] T VISIT HIGH/URGE NT SEVERITY EMERGENCY 23829 [facility] 6 6 [facility] DEPARTMEN INC T VISIT LOW/MODER SEVERITY EMERGENCY 80766 KATE MARLENY 6 6 PHYSICIAN GEORGINA DEPARTMEN S, PLLC T VISIT HIGH/URGE NT SEVERITY EMERGENCY 94688 [facility] 6 6 [facility] INC T VISIT LOW/MODER SEVERITY [facility]OSPITAL [facility] - 6 6 [facility] T EMERGENCY 94797 BREA BREA 5 5 MAR [facility] MODERATE SEVERITY OFFICE 02095 FRANK HILARIA OUTPATIEN 5 5 TRACE GLE T VISIT FAMILY 40 HEALTH [facility] HOSPITAL HERNANDEZ - 5 5 [facility] T OFFICE 67348 FRANK MALEK SHE OUTPATIEN 5 5 TRACE T VISIT FAMILY 25 HEALTH MINUTES OFFICE 53859 FRANK MALEK SHE OUTPATIEN 5 5 TRACE T VISIT FAMILY 25 [facility] HOSPITAL HERNANDEZ - 4 4 [facility] T EMERGENCY 24768 HERNANDEZ 4 4 CO [facility] T VISIT MODERATE SEVERITY EMERGENCY 37566 BREA BREA 4 4 MAR [facility] T VISIT HIGH/URGE NT SEVERITY HOSPITAL HERNANDEZ - 4 4 [facility] T OFFICE 91699 FRANK HILARIA OUTPATIEN 4 4 TRACE GLE T VISIT 5 FAMILY MINUTES HEALTH OFFICE 30781 FRANK MALEK SHE OUTPATIEN 4 4 TRACE T VISIT FAMILY 25 HEALTH MINUTES OFFICE 03489 FRNAK MALEK SHE OUTPATIEN 4 4 TRACE T VISIT FAMILY 25 [facility] HOSPITAL HERNANDEZ - 4 4 [facility] T OFFICE 57712 FRANK MALEK SHE OUTPATIEN 4 4 TRACE T NEW 60 FAMILY MINUTES HEALTH EMERGENCY 40998 PORNOY PORNOY 4 4 [facility] T VISIT HIGH/URGE NT SEVERITY OFFICE 70847 [place] GISELL TAMANNA OUTPATIEN 4 4 PRIMARY T VISIT CARE 25 CENTER MINUTES HOSPITAL HERNANDEZ - 4 4 CO [facility] T OFFICE 65167 [place] IRIS OUTPATIEN 4 4 PRIMARY BET T VISIT CARE 15 CENTER MINUTES OFFICE 37825 [facility] OUTPATIEN 4 4 CO HOSP LAR T NEW MINUTES HOSPITAL HERNANDEZ - 4 4 CO [facility] T OFFICE 76157 [place] IRIS OUTPATIEN 4 4 PRIMARY BET T VISIT CARE 15 CENTER MINUTES OFFICE 44600 [place] GISELL TAMANNA OUTPATIEN 4 4 PRIMARY T VISIT CARE 40 CENTER MINUTES OFFICE 15695 [place] POCZATEK OUTPATIEN 4 4 PRIMARY SABINE T VISIT CARE 25 CENTER MINUTES OFFICE 61521 [place] IRIS OUTPATIEN 4 4 PRIMARY BET T VISIT CARE 15 CENTER MINUTES OFFICE 57335 [place] CHELSIE OUTPATIEN 4 4 PRIMARY BALJIT T VISIT CARE 25 CENTER MINUTES [facility]OSPITAL [facility] - 3 3 [facility] OUTPATIEN [facility] T OFFICE 40194 [place] FLAKO OUTPATIEN 3 3 PRIMARY NAN T VISIT CARE 25 CENTER MINUTES OFFICE 08623 [place] STROUB OUTPATIEN 3 3 PRIMARY ALI T VISIT CARE 15 CENTER MINUTES OFFICE 44548 [place] IRIS OUTPATIEN 3 3 PRIMARY BET T VISIT CARE 25 CENTER MINUTES OFFICE 67804 PAWSAT PAWSAT OUTPATIEN 2 2 MAR MAR T NEW MINUTES OFFICE 12898 [place] [facility] OUTPATIEN 2 2 PRIMARY SABINE T VISIT CARE 15 CENTER MINUTES OFFICE 47300 [place] OUTPATIEN 2 2 PRIMARY T VISIT CARE 15 CENTER MINUTES OFFICE 00927 [place] OUTPATIEN 2 2 PRIMARY T VISIT CARE 15 CENTER MINUTES OFFICE 22933 [place] OUTPATIEN 2 2 PRIMARY T VISIT CARE 15 CENTER [facility] HOSPITAL HERNANDEZ - 2 2 CO [facility] T OFFICE 01005 [place] OUTPATIEN 2 2 PRIMARY T VISIT CARE 15 CENTER MINUTES OFFICE 05359 [place] OUTPATIEN 2 2 PRIMARY T VISIT CARE 15 CENTER MINUTES OFFICE 81679 [place] IRIS OUTPATIEN 2 2 PRIMARY BET T VISIT CARE 15 CENTER MINUTES EMERGENCY 60395 MITZI CONNER DEPT 1 1 EMERGENCY III SABINE VISIT SERVICES HIGH SEVERITY& THREAT COUNT INCLUDES THE [facility] OFFICE 25839 [place] [facility] OUTPATIEN 1 1 PRIMARY SABINE T VISIT CARE 15 CENTER MINUTES OFFICE 09761 BARBARA SANCHEZ CONSULTAT [address] [facility] NEW/ESTAB DAMIEN PATIENT 60 MIN EMERGENCY 22718 MITZI FARMER DEPT 1 1 EMERGENCY GEORGINA VISIT SERVICES HIGH SEVERITY& THREAT COUNT INCLUDES THE [facility] OFFICE 89831 [place] LYUBOV OUTPATIEN 0 0 [facility] T VISIT HEART 15 MINUTES [facility] [address] MALLORY - 0 0 MEDICAL OUTPATIEN [facility] DAVID - 9 9 CO [facility] OFFICE 34069 [place] KOMAL, OUTPATIEN 9 9 [place] NELIA T VISIT HEART PSC 15 MINUTES [facility] JESSICA - 9 9 W OUTFORMERLY [facility] OFFICE 87604 FRANCINE HERRERA 9 9 CO HOSP LARIEN D ION NEW/ESTAB PATIENT 40 MIN EMERGENCY 85549 MITZI CORDERO DEPT 9 9 EMERGENCY BRIANA VISIT SERVICES A HIGH SEVERITY& ASSOCIATE THREAT S [facility] NAEWGRACE - 9 9 W [facility] HOSPITAL NAEWGRACE - 9 9 W [facility] EMERGENCY 98800 MITZI JOHNSTON, DEPT 9 9 EMERGENCY LUCILLE L VISIT SERVICES HIGH SEVERITY& ASSOCIATE THREAT S COUNT INCLUDES THE [facility] OFFICE 77149 [place] KOMAL, CONSULTAT 9 9 [place] N[place] ION HEART PSC NEW/ESTAB PATIENT 80 MIN EMERGENCY 10194 MITZI RODRIGUEZ, DEPT 9 9 EMERGENCY NELIA B VISIT SERVICES HIGH SEVERITY& ASSOCIATE THREAT S FUN EMERGENCY 05889 MITZI DELEON 9 9 EMERGENCY , [facility] A T VISIT HIGH/URGE ASSOCIATE NT S SEVERITY EMERGENCY 04285 JESSICA 9 9 W [facility] VISIT [facility] SEVERITY HOSPITAL JESSICA - 9 9 W [facility] OFFICE 94729 ANEL CRUZ 9 9 ANTONIA ANTONIA E T VISIT EMD 15 MINUTES OFFICE 14157 ANEL CRUZ 8 8 ANTONIA ANTONIA E T VISIT EMD 15 MINUTES [facility] - 8 8 [facility] OUTPATIEN [facility] OFFICE 97580 ANEL CRUZ 8 8 ANTONIA ANTONIA E T VISIT EMD 15 MINUTES [facility]OSPITAL [facility] - 8 8 [facility] OUTPATIEN [facility] T OFFICE 84230 ANEL CRUZ 8 8 ANTONIA ANTONIA E T VISIT EMD 15 MINUTES [facility]OSPITAL [facility] - 8 8 [facility] OUTPATIEN [facility] T EMERGENCY 46701 [facility] 8 8 [facility] T VISIT LOW/MODER SEVERITY EMERGENCY 18079 [facility] PEREZ, 8 8 [facility] T VISIT PROF SERV MODERATE SEVERITY OFFICE 34139 ANEL CRUZ 8 8 ANTONIA ANTONIA E T VISIT EMD 15 MINUTES
--- OUTSIDE RECORDS SUMMARY | 2017-02-22 03:00 | External Medical Summary Rpt | CCD ---
Author Author , BRENDA WU Address Unknown Phone [email or web address] Immunization Name Date Rout CVX Reac Dose Comm Prov Is Faci e tion ent ider Refu lity Give sed n Infl 10-0 999 Hist FQ11 No FQ11 uenz 1-20 oric a-Sp 12 al lit Info rmat ion - Sour ce Unsp ecif ied Td 10-3 9 999 Hist H201 No H201 (dean 0-19 oric lt), 96 al Info adso rmat rbed ion - Sour ce Unsp ecif ied
--- OUTSIDE RECORDS SUMMARY | 2017-02-22 03:00 | External Medical Summary Rpt | CCD ---
Author Author , BRENDA WU Address Unknown Phone [email or web address] Immunization Name Date Rout CVX Reac Dose [...]
== END 2017-02-21 05:52 | disposition home or self-care (01) ==
LOC: ER 03:27
PROVIDERS: Emergency Medicine
DX: R10.31 Right lower quadrant pain (principal); R31.9 Hematuria, unspecified; I10 Essential (primary) hypertension; E78.5 Hyperlipidemia, unspecified; J44.9 Chronic obstructive pulmonary disease, unspecified; Z79.899 Other long term (current) drug therapy